=== PATIENT | male | born 1955 | race Caucasian/White ===

== ENCOUNTER 2021-07-10 08:46 | Emergency (ER) | payer MEDICARE, MEDICAID, OTHER, SELFPAY ==
[2021-07-10] VITALS (10 sets, daily range): BP systolic 130–162; BP diastolic 61–100; PULSE 69–97; RESP 16–18; TEMP 36.4–36.9; O2SAT 97–99; BMI 26.6
--- NOTE | 2021-07-10 08:49 | HMH.EDGENADL ---
ED Disposition Clinical Impression: Hematuria Qualifiers: Hematuria type: gross Qualified Code(s): R31.0 - Gross hematuria Urinary tract infection Qualifiers: Urinary tract infection type: acute cystitis Hematuria presence: with hematuria Qualified Code(s): N30.01 - Acute cystitis with hematuria Disposition: Home, Self-Care Condition on Discharge: Fair Instructions: Urinary Tract Infection Additional Instructions: Please schedule an appointment with a urologist (Dr. Diaz) for next week. You need a cystoscopy which is a scope into your bladder to make sure you do not have bladder cancer. Return to the emergency department if you worsen in any way. Prescriptions: Sulfamethoxazole/Trimethoprim [Bactrim DS tablet] 1 each PO BID #14 tab Transmission Status: Pending to [facility] [place] Referrals: Jak Parham MD [Primary Care Provider] - David Diaz MD [Staff Physician] - Time of Disposition: 11:55 - Critical Care Critical Care Time: No Attestation: On , the high probability of a clinically significant, sudden or life threatening deterioration of the following system(s) required my full and direct attention, intervention and personal management. The time I documented below is in addition to time spent performing reported procedures but includes the following listed in this critical care notation. Medical Decision Making - Medical Records Medical records reviewed: Yes: I reviewed the patient's medical records. - Sravan Inquiry Pt receiving controlled substance: No Vital Signs: 07/10/21 08:47 07/10/21 09:01 07/10/21 09:21 Temperature 97.5 F L Temperature Source Oral Pulse Rate 73 90 Pulse Rate [Left Radial] 97 H Respiratory Rate 18 18 18 Blood Pressure 158/85 H 146/82 H Blood Pressure [Right Arm] 162/100 H Blood Pressure Mean 110 100 Blood Pressure Mean [Right Arm] 120 Blood Pressure Source [Right Arm] Automatic Cuff Blood Pressure Position [Right Arm] Sitting 02 Sat by Pulse Oximetry 98 98 97 Oxygen Delivery Method Room Air 07/10/21 09:30 07/10/21 10:01 07/10/21 10:30 Temperature Temperature Source Pulse Rate 75 75 74 Pulse Rate [Left Radial] Respiratory Rate 18 17 16 Blood Pressure 134/73 155/89 H 158/82 H Blood Pressure [Right Arm] Blood Pressure Mean 94 111 107 Blood Pressure Mean [Right Arm] Blood Pressure Source [Right Arm] Blood Pressure Position [Right Arm] 02 Sat by Pulse Oximetry 98 98 98 Oxygen Delivery Method 07/10/21 11:00 07/10/21 11:30 Temperature Temperature Source Pulse Rate 75 69 Pulse Rate [Left Radial] Respiratory Rate 17 17 Blood Pressure 130/73 134/79 Blood Pressure [Right Arm] Blood Pressure Mean 92 97 Blood Pressure Mean [Right Arm] Blood Pressure Source [Right Arm] Blood Pressure Position [Right Arm] 02 Sat by Pulse Oximetry 99 98 Oxygen Delivery Method - Lab Data Lab results reviewed: Yes: I reviewed the patient's lab results. Lab Results 07/10/21 08:54: Stool Occult Blood Negative Orders (Tests/Meds): ORDERS Category Date Time Status Urinalysis-Acute [Urinalysis and Microscopic] Stat Lab 07/10/21 09:06 Ordered - Physician Consults Physician Consulted: Emily Time: 11:51 Reason -: Urology Eval/Care Comment/Response: Will see the patient next week to discuss cystoscopy. Medical Decision Narrative: The patient presents to the emergency department with gross hematuria. He was unable to void in the emergency department. He wears depends. He was observed for 3 hours in the emergency department and has not urinated. A CT of the abdomen and pelvis were performed and show some irregularity of the bladder wall and what could be a blood clot in the posterior bladder. The case was discussed with Dr. Diaz of the urologist on-call. Dr. Diaz has agreed to follow-up with the patient and his office next week. Patient will be discharged with a diagnosis of gross hematuria
[2021-07-10 09:11] LABS: Occult Blood,Stool Negative (Negative)
--- NOTE | 2021-07-10 09:13 | PC.NURSE ---
attempted to in/out cath, resistance noted, stopped, MD aware. Condom cath placed to collect urine
--- NOTE | 2021-07-10 09:35 | PC.NURSE ---
Condom catheter applied.
--- NOTE | 2021-07-10 10:30 | CT_ITS ---
PROCEDURE INFORMATION: Exam: CT Abdomen And Pelvis Without Contrast Exam date and time: 07/10/2021 10:34 AM Age: 66 years old Clinical indication: Other: Hematuria; Additional info: Painless hematuria TECHNIQUE: Imaging protocol: Computed tomography of the abdomen and pelvis without contrast. Radiation optimization: All CT scans at this facility use at least one of these dose optimization techniques: automated exposure control; mA and/or kV adjustment per patient size (includes targeted exams where dose is matched to clinical indication); or iterative reconstruction. COMPARISON: No relevant prior studies available. FINDINGS: Diaphragm: Small hiatal hernia. Liver: See Spleen finding. Gallbladder and bile ducts: Normal. No calcified stones. No ductal dilation. Pancreas: Normal. No ductal dilation. Spleen: Scattered granulomas are demonstrated in the spleen and liver. Adrenal glands: Normal. No mass. Kidneys and ureters: Bilateral perinephric stranding. Findings nonspecific and may reflect acute versus chronic inflammatory change. Stomach and bowel: Scattered colonic diverticula are demonstrated. Findings compatible with mild changes of diverticulosis. Appendix: No evidence of appendicitis. Intraperitoneal space: Unremarkable. No free air. No significant fluid collection. Arteries: Atherosclerotic calcification demonstrated in the abdominal aorta and common iliac arteries. Lymph nodes: Bilateral nonspecific inguinal lymph nodes. Urinary bladder: There is mild irregularity of the bladder wall. There is a ovoid slightly nodular region of mildly increased density within the base of the bladder. This measures approximately 14 mm in maximum dimensions. This may correspond to clot. A mass could not be excluded. Reproductive: There is mild prominence of the seminal vesicles and prostate. No distinct mass is demonstrated. Bones/joints: Unremarkable. No acute fracture. Soft tissues: Unremarkable. IMPRESSION: 1. Mild irregularity of the bladder wall. Findings may correspond to cystitis. Associated nodular region of increased density within the base of the bladder. Findings may reflect localized clot. A mass could not be excluded. 2. Mild prominence of the seminal vesicles and prostate gland. No distinct mass demonstrated. 3. Bilateral perinephric stranding. Findings nonspecific and may reflect acute versus chronic inflammatory change. 4. Diverticulosis. No evidence of diverticulitis.
--- NOTE | 2021-07-10 11:46 | PC.NURSE ---
has been paged
--- NOTE | 2021-07-10 13:11 | PC.NURSE ---
Coming out of another pt room I heard some noise coming from pt room. Once I entered the pt room, pt was sitting on the floor with his hand grabbing the side rail and urinal noted in other hand. Pt stating that he needed to use the urinal for urine. Side rails were up on pt bed during pt stay. Pt was able to stand and sit in chair. MD assessed pt, small abrasion noted to middle lumbar, pt denies hitting his head or any other injuries at this time.
== END 2021-07-10 12:49 | disposition home or self-care (01) ==
PROVIDERS: Emergency Provider Emergency Medicine; PCP Family Medicine
DX: N30.01 Acute cystitis with hematuria (principal); K21.9 Gastro-esophageal reflux disease without esophagitis; E78.5 Hyperlipidemia, unspecified; F17.210 Nicotine dependence, cigarettes, uncomplicated; Z79.82 Long term (current) use of aspirin; Z79.899 Other long term (current) drug therapy; Z82.49 Family history of ischemic heart disease and other diseases of the circulatory system; Z82.5 Family history of asthma and other chronic lower respiratory diseases; Z83.3 Family history of diabetes mellitus; Z80.9 Family history of malignant neoplasm, unspecified
CPT/HCPCS: 74176; 82272; 99284; G0328

== ENCOUNTER 2021-07-28 19:38 | Observation (INO) | payer MEDICARE, MEDICAID, OTHER, SELFPAY ==
[2021-07-28 19:33] VITALS: BP 168/98; PULSE 108; RESP 16; TEMP 36.8; O2SAT 94; BMI 31.1
--- NOTE | 2021-07-28 20:13 | CT_ITS ---
PROCEDURE INFORMATION: Exam: CT Abdomen And Pelvis With Contrast Exam date and time: 07/28/2021 8:50 PM Age: 66 years old Clinical indication: Vomiting; Additional info: Vomitting TECHNIQUE: Imaging protocol: Computed tomography of the abdomen and pelvis with contrast. Radiation optimization: All CT scans at this facility use at least one of these dose optimization techniques: automated exposure control; mA and/or kV adjustment per patient size (includes targeted exams where dose is matched to clinical indication); or iterative reconstruction. Contrast material: ISOVUE; Contrast volume: 329 ml; Contrast route: IV; COMPARISON: CT ABDOMEN PELVIS WO CON 07/10/2021 10:34 AM FINDINGS: Lungs: Patchy opacities at the lung bases. Diaphragm: Moderate hiatal hernia with fluid and debris within the lower esophagus. Liver: Normal. No mass. Gallbladder and bile ducts: No calcified stones. No ductal dilation. Pancreas: Normal enhancement. No ductal dilation. Spleen: There are multiple splenic calcifications likely on the basis of prior granulomatous exposure. Adrenal glands: No mass. Kidneys and ureters: No hydronephrosis. Stomach and bowel: No obstruction. No mucosal thickening. Appendix: No evidence of appendicitis. Intraperitoneal space: No free air. No significant fluid collection. Arteries: Unremarkable. No abdominal aortic aneurysm. Lymph nodes: No enlarged lymph nodes. Urinary bladder: Mild asymmetric wall thickening of posterior left urinary bladder measuring approximately 5 mm. Reproductive: No acute abnormality. Bones/joints: No acute fracture. Soft tissues: No soft tissue swelling. IMPRESSION: 1. Moderate hiatal hernia with fluid and debris within the lower esophagus compatible with gastroesophageal reflux and vomiting. 2. Patchy opacities at the lung bases which may be hypoventilatory however pneumonitis should be clinically excluded. 3. Mild asymmetric wall thickening of posterior left urinary bladder measuring approximately 5 mm. Correlation with UA recommended. Mucosal mass cannot be radiographically excluded.
[2021-07-28 20:30] LABS: Chloride 106 mmol/L (98-107); Potassium 3.6 mmoL/L (3.5-5.1); Sodium 143 mmol/L (136-145)
[2021-07-28 20:32] LABS: Alanine Aminotransferase 25 U/L (12-78); Aspartate Amino Transferase 33 U/L (17-59); Blood Urea Nitrogen 22 mg/dl (9-20); Creatinine Clearance Estimated 87 mL/min (50-200); Estimated Glomerular Filt Rate 67 ml/min (>60); GFR (African American) 81 ML/MIN (>60)
[2021-07-28 20:33] LABS: Albumin Level 4.6 g/dl (3.5-5.0); Albumin/Globulin Ratio 1.4 (1.1-1.8); Alkaline Phosphatase 96 U/L (38-126); Anion Gap 12.6 mEq/L (5-15); Bilirubin,Total 0.6 mg/dl (0.2-1.3); Calcium 10.1 mg/dl (8.4-10.2); Carbon Dioxide 28 mmol/L (22.0-30.0); Globulin 3.2 g/dL (1.3-3.2); Glucose 126 mg/dl (74-100); Total Protein,Serum 7.8 g/dl (6.3-8.2)
--- NOTE | 2021-07-28 20:48 | HMH.EDNVD ---
ED Disposition Clinical Impression: UGIB (upper gastrointestinal bleed), Obesity (BMI 30-39.9), Hiatal hernia with GERD and esophagitis Hematuria Qualifiers: Hematuria type: unspecified type Qualified Code(s): R31.9 - Hematuria, unspecified Disposition: Admitted As Inpatient Condition on Discharge: Fair - Critical Care Critical Care Time: No Attestation: On 07/28/21, the high probability of a clinically significant, sudden or life threatening deterioration of the following system(s) required my full and direct attention, intervention and personal management. The time I documented below is in addition to time spent performing reported procedures but includes the following listed in this critical care notation. Medical Decision Making - Medical Records Medical records reviewed: Yes: I reviewed the patient's medical records. - Sravan Inquiry Pt receiving controlled substance: No Vital Signs: 07/28/21 19:33 Temperature 98.3 F Temperature Source Oral Pulse Rate [Left] 108 H Respiratory Rate 16 Blood Pressure [Right Arm] 168/98 H Blood Pressure Mean [Right Arm] 121 02 Sat by Pulse Oximetry 94 L Oxygen Delivery Method Room Air - Lab Data Lab results reviewed: Yes: I reviewed the patient's lab results. Lab Results 07/28/21 20:00: Sodium 143, Potassium 3.6, Chloride 106, Carbon Dioxide 28, Anion Gap 12.6, BUN 22 H, Creatinine 1.10, Estimated Creat Clear 87, Estimated GFR 67, Est GFR ( Amer) 81, Glucose 126 H, Calcium 10.1, Total Bilirubin 0.6, AST 33, ALT 25, Alkaline Phosphatase 96, Total Protein 7.8, Albumin 4.6, Globulin 3.2, Albumin/Globulin Ratio 1.4 07/28/21 20:00: Amylase 83, Lipase 58 Result diagrams: 07/28/21 20:00 Orders (Tests/Meds): ED MEDICATIONS Generic Name Dose Route Start Last Admin Trade Name Freq PRN Reason Stop Dose Admin Lactated Ringer's 1,000 mls @ 999 mls/hr 07/28/21 20:15 07/28/21 20:14 Lactated Ringer's 1000 Ml Bag IV 07/28/21 21:15 999 mls/hr .Q1H1M WAYLON Administration Metoclopramide HCl 10 mg 07/28/21 22:00 07/28/21 22:15 Metoclopramide Hcl 10mg/2ml Vial IVP 08/27/21 21:59 10 mg Q6H WAYLON Administration Pantoprazole Sodium 40 mg 07/29/21 09:00 Pantoprazole 40mg Vial IV 08/28/21 08:59 BID WAYLON Discontinued Medications Generic Name Dose Route Start Last Admin Trade Name Amy PRN Reason Stop Dose Admin Iopamidol 75 ml 07/28/21 20:53 07/28/21 20:54 Iopamidol-370 (76%);100ml Bottle IV 07/28/21 20:54 75 ml ONCE ONE Administration Ondansetron HCl 4 mg 07/28/21 20:13 07/28/21 20:14 Ondansetron 4mg/2ml Vial IV 07/28/21 20:14 4 mg ONCE ONE Administration Sodium Chloride 10 ml 07/28/21 20:53 07/28/21 20:54 Sodium Chloride 0.9% 10ml Syr (Rad Only) IV 07/28/21 20:54 10 ml ONCE ONE Administration ORDERS Category Date Time Status Complete Blood Count Auto Diff Stat Lab 07/28/21 20:00 Received Rapid PCR Covid and Flu A/B Stat Lab 07/28/21 21:50 Received - Radiology Data #1 Image(s): Chest Image Reviewed: Yes I reviewed the patient's radiology image Preliminary Findings: Abnormal (nonspecific) - CT Data CT Scan: Abdomen, Pelvis Time Received: 22:[address] Reviewed: Yes: I have viewed the radiologist's interpretation Preliminary Findings: Abnormal (see report ) - ECG Data Tracing #1 Arrhythmias present: sinus tach Ischemic changes: non-specific ST-T wave changes Medical Decision Narrative: will admit at this time for eval for possible ugi bleed - Nausea/Vomiting/Diarrhea HPI - General Chief complaint: Nausea/Vomiting/Diarrhea Stated complaint: increased oral secretions Time Seen by Provider: 07/28/21 20:00 Mode of Arrival: EMS Source of Information: Patient, EMS, Medical Record Limitations: Altered Mental Status Description of Symptoms (Recalled from ER Triage Doc. by RN): pt is alert to person and time when I asked what brought him today he said he guesses that its be
--- NOTE | 2021-07-28 21:35 | XR_ITS ---
PROCEDURE INFORMATION: Exam: XR Chest Exam date and time: 07/28/2021 9:41 PM Age: 66 years old Clinical indication: Other: Vomiting; Additional info: Vomitting TECHNIQUE: Imaging protocol: XR of the chest. Views: 1 view. COMPARISON: CT ABDOMEN PELVIS W CON 07/28/2021 8:50 PM FINDINGS: Lungs: Examination is somewhat limited by patient positioning. Subtle hazy opacity at the lung bases. Thickening of the right paratracheal soft tissues with opacity at the right lung apex. Pleural spaces: No pneumothorax. Heart/Mediastinum: Trachea is deviated to the right. No cardiomegaly. Bones/joints: No acute abnormality. IMPRESSION: Subtle hazy opacity at the lung bases which may be hypoventilatory however pneumonitis should be clinically excluded. Thickening of the right paratracheal soft tissues with opacity at the right lung apex which may in part be positional however mass cannot be excluded. Consider chest CT for further evaluation.
[2021-07-28 21:44] LABS: Amylase 83 U/L (30-110); Lipase 58 U/L (23-300)
[2021-07-28 22:03] LABS: Coronavirus 19, PCR Not Detected (NotDetected); Influenza A, PCR Not Detected (NotDetected)
[2021-07-28 22:04] LABS: Influenza B, PCR Not Detected (NotDetected)
--- NOTE | 2021-07-28 22:17 | ECG_ITS ---
APPROVED REPORT Exam: Resting ECG HR:110 bpm ECG Measurements Heart Rate 110 AXES NE 179 P 20 QRSd 89 QRS 121 QT 331 T -2 QTc 396 Conclusion SINUS TACHYCARDIA PATTERN CONSISTENT WITH PULMONARY DISEASE POSSIBLE RIGHT VENTRICULAR HYPERTROPHY [SOME/ALL OF: PROMINENT R IN V1, LATE TRANSITION, RAD, CONSUELO, SSS] ABNORMAL QRS-T ANGLE [QRS-T AXIS DIFFERENCE > 60] ABNORMAL ECG UNCONFIRMED REPORT Electronically signed by : Ismael Caraballo MD 07/29/2021 07:58:52
[2021-07-28 22:36] LABS: Occult Blood,Stool Negative (Negative)
[2021-07-28 23:52] VITALS: BP 137/88; PULSE 90; RESP 16; TEMP 36.8; O2SAT 94
[2021-07-28 23:55] VITALS: BP 117/81; PULSE 112; RESP 18; TEMP 38; O2SAT 90; BMI 31.0
--- NOTE | 2021-07-28 23:55 | PC.NURSE ---
PT ARRIVED TO FLOOR VIA STRETCHER FROM ED W/STAFF @ [id number]
[2021-07-29 00:30] VITALS: O2SAT 90
[2021-07-29 03:39] LABS: Basophils % 0.6 % (0.1-2.0); Eosinophils % 1.3 % (0.1-12.0); Hematocrit 45.5 % (42.0-52.0); Hemoglobin 15.1 g/dL (14.1-18.0); Lymphocytes % 11.7 % (10-50); Mean Corpuscular HGB Conc 33.2 g/dL (31.8-35.4); Mean Corpuscular Hemoglobin 30.8 pg (27.0-31.2); Mean Corpuscular Volume 92.7 fl (80-94); Mean Platelet Volume 9.4 fl (7.4-10.4); Monocytes % 10.8 % (1.7-9.3); Neutrophils # 9.6 K/mm3 (1.8-7.8); Neutrophils % 75.3 % (37.0-80.0); Platelet Count 325 K/mm3 (142-424); Red Blood Count 4.91 M/mm3 (4.60-6.20)
[2021-07-29 03:40] LABS: Basophils # 0.1 K/mm3 (0-0.2); Eosinophils # 0.2 K/mm3 (0.0-0.4); Lymphocytes # 1.5 K/mm3 (0.7-4.5); Monocytes # 1.4 K/mm3 (0.1-1.0); White Blood Count 12.7 K/mm3 (4.8-10.8)
[2021-07-29 04:00] VITALS: BP 116/80; PULSE 68; RESP 16; TEMP 36.9; O2SAT 96
--- NOTE | 2021-07-29 04:00 | PC.NURSE ---
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 lungs noted with expiratory wheezes, o2 sats 90% on r/a, attempted to place o2 at 1L pnc, but pt will not keep on. no swelling or edema noted.
[2021-07-29 07:01] LABS: Chloride 110 mmol/L (98-107); Sodium 145 mmol/L (136-145)
[2021-07-29 07:02] LABS: Potassium 3.9 mmoL/L (3.5-5.1)
[2021-07-29 07:04] LABS: Blood Urea Nitrogen 22 mg/dl (9-20); Creatinine Clearance Estimated 87 mL/min (50-200); Estimated Glomerular Filt Rate 67 ml/min (>60); GFR (African American) 81 ML/MIN (>60)
[2021-07-29 07:05] LABS: Anion Gap 10.9 mEq/L (5-15); Calcium 10.1 mg/dl (8.4-10.2); Carbon Dioxide 28 mmol/L (22.0-30.0); Glucose 154 mg/dl (74-100)
--- NOTE | 2021-07-29 07:13 | P.CONPHA_ITS ---
[facility] Pharm[facility] VTE Monitoring - Patient Demographics Admission date: 07/29/21 Report Date: 07/29/21 Time: 07:13 Allergies/Adverse Reactions: Patient Allergies No Known Allergies Allergy (Verified 07/23/21 13:31) Height: 1.73 m Weight: 92.986 kg Patient Problems: Current Active Problems Hematuria (Acute) UGIB (upper gastrointestinal bleed) (Acute) Obesity (BMI 30-39.9) (Acute) Hiatal hernia with GERD and esophagitis (Acute) - VTE Risk Labs: VTE Related Lab Results Hgb 15.1 g/dL (14.1-18.0) 07/28/21 20:00 Hct 45.5 % (42.0-52.0) 07/28/21 20:00 Plt Count 325 K/mm3 (142-424) 07/28/21 20:00 BUN 22 mg/dl (9-20) H 07/29/21 06:31 Creatinine 1.10 mg/dl (0.66-1.25) 07/29/21 06:31 Estimated Creat Clear 87 mL/min (50-200) 07/29/21 06:31 Was VTE Risk Assessment Performed: Yes VTE Score: 4 VTE Risk Level: Low Risk Clinical Trial Participant: No - Prophylaxis VTE Prophylaxis Ordered?: Yes Types of VTE Prophylaxis: TEDS Knee High Location of Applied Device: Bilateral Lower Extremeties
--- NOTE | 2021-07-29 07:18 | HMH.GSCON ---
*Admission Date: 07/29/21 *Reason for consult:: Upper GI Bleed *History of present illness: Patient is a 66-year-old male with a history of previous stroke and dementia who is a [facility] patient. He was brought to the emergency department overnight with concerns about vomiting of blood by the staff. He denies any pain or other symptoms. He apparently has recently been started on aspirin. Denies any history consistent with melena or hematochezia. Blood work in the emergency department reveals a hemoglobin of 15. BUN/Cr 22/1.1. CT scan reveals findings of moderate hiatal hernia with fluid and debris in the lower esophagus compatible with gastroesophageal reflux and vomiting. He was admitted for inpatient management and surgical consultation. Review of Systems - Review of Systems Review of systems:: unable to obtain - *Neurologic Denies seizure-like activity [facility] History I have reviewed the patient's past medical history: Yes Medical History: Reports:: Carotid Stenosis, Depression, Gastroesophageal Reflux Disease(GERD), Hyperlipidemia, Renal Disease *Have you ever received a pneumonia vaccine?: Yes *Have you received a flu vaccine this season?: Yes Other Surgeries: Yes: No Previous Surgery, Colonoscopy, Colon Resection Amputation: No Fractures: No - *Social History Smoking Status: Current every day smoker Tobacco Type: cigarettes # Packs/Day (cigarettes): 2 #Yrs smoked (if former smoker): 46 Alcohol Intake: current Alcohol Intake Frequency:: 0-2 drinks per day Substance Use Type: denies use *Occupational Status:: retired Housing: assisted living facility Household Members: caregiver *Travel in the last 8 weeks: None - Psychiatric History Pschychiatric History:: Reports:: Depression Family Hx:: Asthma, Cancer, Coronary Artery Disease, Diabetes, Heart Attack Meds Home Medications Medication Instructions Recorded Confirmed Type aspirin 81 mg tablet,delayed 81 mg PO DAILY 09/03/18 07/28/21 History release simvastatin 20 mg tablet 20 mg PO HS 09/03/18 07/29/21 History bisacodyl 5 mg tablet,delayed 10 mg PO HSP PRN 07/23/21 07/29/21 History release bupropion HCl 75 mg tablet 75 mg PO BID 07/23/21 07/29/21 History guaifenesin 400 mg tablet 400 mg PO BID tab 07/23/21 07/28/21 History sennosides 8.6 mg capsule 8.6 mg PO DAILY 07/23/21 07/28/21 History zinc oxide 20 % topical ointment 1 applic TOPICAL BID g 07/23/21 07/28/21 History Omeprazole [Omeprazole 20mg Tab] 20 mg PO DAILY 07/28/21 07/28/21 History Allergies Allergy/AdvReac Type Severity Reaction Status Date / Time No Known Allergies Allergy Verified 07/23/21 13:31 Exam Vital signs and Labs for Last 24 Hours: Temp Pulse Resp BP Pulse Ox 98.5 F 68 16 116/80 96 07/29/21 04:00 07/29/21 04:00 07/29/21 04:00 07/29/21 04:00 07/29/21 04:00 Laboratory Results - last 24 hr 07/28/21 20:00: WBC 12.7 H, RBC 4.91, Hgb 15.1, Hct 45.5, MCV 92.7, MCH 30.8, MCHC 33.2, RDW 13.0, Plt Count 325, MPV 9.4, Neut % (Auto) 75.3, Lymph % (Auto) 11.7, Gray % (Auto) 10.8 H, Eos % (Auto) 1.3, Baso % (Auto) 0.6, Neut # (Auto) 9.6 H, Lymph # (Auto) 1.5, Gray # (Auto) 1.4 H, Eos # (Auto) 0.2, Baso # (Auto) 0.1 07/28/21 20:00: Sodium 143, Potassium 3.6, Chloride 106, Carbon Dioxide 28, Anion Gap 12.6, BUN 22 H, Creatinine 1.10, Estimated Creat Clear 87, Estimated GFR 67, Est GFR ( Amer) 81, Glucose 126 H, Calcium 10.1, Total Bilirubin 0.6, AST 33, ALT 25, Alkaline Phosphatase 96, Total Protein 7.8, Albumin 4.6, Globulin 3.2, Albumin/Globulin Ratio 1.4 07/28/21 20:00: Amylase 83, Lipase 58 07/28/21 21:50: SARS-CoV-2 (PCR) Not detected, Influenza A Untype (PCR) Not detected, Influenza Type B (PCR) Not detected 07/28/21 22:10: Stool Occult Blood Negative 07/29/21 06:31: Sodium 145, Potassium 3.9, Chloride 110 H, Carbon Dioxide 28, Anion Gap 10.9, BUN 22 H, Creatinine 1.10, Estimated Creat Clear 87, Estimated GFR 67, Est GFR ( Amer) 81, Glucose 154 H D, Henry
--- NOTE | 2021-07-29 07:19 | HMH.PHAINT ---
verified home medication list using MAR from detention
[2021-07-29 08:00] VITALS: BP 116/48; PULSE 86; RESP 16; TEMP 37.2; O2SAT 89
[2021-07-29 08:16] LABS: INR 1.02 (0.9-1.1); Prothrombin Time 11.5 seconds (10.1-12.5)
--- NOTE | 2021-07-29 08:20 | SW/DCPLANNER ---
Addendum entered by Damari Corrales 07/30/21 09:44: Updated patient information has been faxed to Debra eldridge/ Jacob Palumbo. Discharge date is unknown at this time. Original Note: This patient currently resides at [facility]. Per Debra eldridge/ Jacob Palumbo patient is [facility] level of care. I will continue to follow up chente/ Debra until patient is medically stable for discharge.
[2021-07-29 09:32] LABS: Hematocrit 41.1 % (42.0-52.0); Mean Corpuscular HGB Conc 32.8 g/dL (31.8-35.4); Mean Corpuscular Hemoglobin 30.1 pg (27.0-31.2); Mean Corpuscular Volume 91.5 fl (80-94); Red Blood Count 4.49 M/mm3 (4.60-6.20)
[2021-07-29 09:33] LABS: Basophils % 0.1 % (0.1-2.0); Lymphocytes # 0.8 K/mm3 (0.7-4.5); Lymphocytes % 4.7 % (10-50); Mean Platelet Volume 9.3 fl (7.4-10.4); Monocytes # 0.8 K/mm3 (0.1-1.0); Monocytes % 4.7 % (1.7-9.3); Neutrophils # 16.1 K/mm3 (1.8-7.8); Neutrophils % 90.2 % (37.0-80.0); Platelet Count 286 K/mm3 (142-424)
[2021-07-29 09:34] LABS: Hemoglobin 13.5 g/dL (14.1-18.0); White Blood Count 17.8 K/mm3 (4.8-10.8)
[2021-07-29 09:36] LABS: MANUAL DIFFERENTIAL MANUAL DIFFERENTIAL (MANUAL DIFF)
--- NOTE | 2021-07-29 10:01 | HMH.CONS ---
*Admission Date: 07/29/21 *Reason for consult:: Hematuria *History of present illness: Patient is a 66-year-old white female who is [facility]. He has a history of hematuria that was admitted last evening for vomiting blood. Dr. Bourne has seen the patient CT with contrast was performed showing possible bladder mass which was already suspected. I saw the patient last week in the office for history of blood in his pull-up. He is incontinent. CT scan without contrast showed signs of possible bladder mass at that time. He is set up in the near future for cystoscopy and possible tumor resection. Examination of his pull-ups this morning showed no evidence of blood in his urine. [facility] History Medical History: Reports:: Carotid Stenosis, Depression, Gastroesophageal Reflux Disease(GERD), Hyperlipidemia, Renal Disease *Have you ever received a pneumonia vaccine?: Yes *Have you received a flu vaccine this season?: Yes Other Surgeries: Yes: No Previous Surgery, Colonoscopy, Colon Resection Amputation: No Fractures: No - *Social History Smoking Status: Current every day smoker Tobacco Type: cigarettes # Packs/Day (cigarettes): 2 #Yrs smoked (if former smoker): 46 Alcohol Intake: current Alcohol Intake Frequency:: 0-2 drinks per day Substance Use Type: denies use *Occupational Status:: retired Housing: assisted living facility Household Members: caregiver *Travel in the last 8 weeks: None - Psychiatric History Pschychiatric History:: Reports:: Depression Family Hx:: Asthma, Cancer, Coronary Artery Disease, Diabetes, Heart Attack Review of Systems - Review of Systems Review of systems:: unable to obtain - *Neurologic Denies seizure-like activity Meds Home Medications Medication Instructions Recorded Confirmed Type aspirin 81 mg tablet,delayed 81 mg PO DAILY 09/03/18 07/28/21 History release simvastatin 20 mg tablet 20 mg PO HS 09/03/18 07/29/21 History bisacodyl 5 mg tablet,delayed 10 mg PO HSP PRN 07/23/21 07/29/21 History release bupropion HCl 75 mg tablet 75 mg PO BID 07/23/21 07/29/21 History guaifenesin 400 mg tablet 400 mg PO BID tab 07/23/21 07/28/21 History sennosides 8.6 mg capsule 8.6 mg PO DAILY 07/23/21 07/28/21 History zinc oxide 20 % topical ointment 1 applic TOPICAL BID g 07/23/21 07/28/21 History Omeprazole [Omeprazole 20mg Tab] 20 mg PO DAILY 07/28/21 07/28/21 History Allergies Allergy/AdvReac Type Severity Reaction Status Date / Time No Known Allergies Allergy Verified 07/23/21 13:31 Exam Vital signs and Labs for Last 24 Hours: Temp Pulse Resp BP Pulse Ox 98.9 F 86 16 116/48 L 89 L 07/29/21 08:00 07/29/21 08:00 07/29/21 08:00 07/29/21 08:00 07/29/21 08:00 Laboratory Results - last 24 hr 07/28/21 20:00: WBC 12.7 H, RBC 4.91, Hgb 15.1, Hct 45.5, MCV 92.7, MCH 30.8, MCHC 33.2, RDW 13.0, Plt Count 325, MPV 9.4, Neut % (Auto) 75.3, Lymph % (Auto) 11.7, [place] % (Auto) 10.8 H, Eos % (Auto) 1.3, Baso % (Auto) 0.6, Neut # (Auto) 9.6 H, Lymph # (Auto) 1.5, [place] # (Auto) 1.4 H, Eos # (Auto) 0.2, Baso # (Auto) 0.1 07/28/21 20:00: Sodium 143, Potassium 3.6, Chloride 106, Carbon Dioxide 28, Anion Gap 12.6, BUN 22 H, Creatinine 1.10, Estimated Creat Clear 87, Estimated GFR 67, Est GFR ( Amer) 81, Glucose 126 H, Calcium 10.1, Total Bilirubin 0.6, AST 33, ALT 25, Alkaline Phosphatase 96, Total Protein 7.8, Albumin 4.6, Globulin 3.2, Albumin/Globulin Ratio 1.4 07/28/21 20:00: Amylase 83, Lipase 58 07/28/21 21:50: SARS-CoV-2 (PCR) Not detected, Influenza A Untype (PCR) Not detected, Influenza Type B (PCR) Not detected 07/28/21 22:10: Stool Occult Blood Negative 07/29/21 06:31: WBC 17.8 H D, RBC 4.49 L, Hgb 13.5 L D, Hct 41.1 L, MCV 91.5, MCH 30.1, MCHC 32.8, RDW 13.0, Plt Count 286, MPV 9.3, Neut % (Auto) 90.2 H, Lymph % (Auto) 4.7 L, [place] % (Auto) 4.7, Eos % (Auto) 0.0 L, Baso % (Auto) 0.1, Neut # (Auto) 16.1 H, Lymph # (Auto) 0.8, [place] # (Auto) 0.8, Eos # (Auto) 0.0, Baso #
--- NOTE | 2021-07-29 10:06 | HMH.HP ---
*Admission Date: 07/29/21 *Chief complaint: gi bleed *History of present illness: Patient is a 66-year-old male with a history of previous stroke and dementia who is a [facility] patient. He was brought to the emergency department overnight with concerns about vomiting of blood by the staff. He denies any pain or other symptoms. He apparently has recently been started on aspirin. Denies any history consistent with melena or hematochezia. Blood work in the emergency department reveals a hemoglobin of 15. BUN/Cr 22/1.1. CT scan reveals findings of moderate hiatal hernia with fluid and debris in the lower esophagus compatible with gastroesophageal reflux and vomiting. above per Dr Bourne Omeprazole is on board chronically. [facility] History Medical History: Reports:: Carotid Stenosis, Depression, Gastroesophageal Reflux Disease(GERD), Hyperlipidemia, Renal Disease *Have you ever received a pneumonia vaccine?: Yes *Have you received a flu vaccine this season?: Yes Other Surgeries: Yes: No Previous Surgery, Colonoscopy, Colon Resection Amputation: No Fractures: No - *Social History Smoking Status: Current every day smoker Tobacco Type: cigarettes # Packs/Day (cigarettes): 2 #Yrs smoked (if former smoker): 46 Alcohol Intake: current Alcohol Intake Frequency:: 0-2 drinks per day Substance Use Type: denies use *Occupational Status:: retired Housing: assisted living facility Household Members: caregiver *Travel in the last 8 weeks: None - Psychiatric History Pschychiatric History:: Reports:: Depression Family Hx:: Asthma, Cancer, Coronary Artery Disease, Diabetes, Heart Attack Review of Systems - Review of Systems Review of systems:: unable to obtain - *Neurologic Denies seizure-like activity Meds Home Medications Medication Instructions Recorded Confirmed Type aspirin 81 mg tablet,delayed 81 mg PO DAILY 09/03/18 07/28/21 History release simvastatin 20 mg tablet 20 mg PO HS 09/03/18 07/29/21 History bisacodyl 5 mg tablet,delayed 10 mg PO HSP PRN 07/23/21 07/29/21 History release bupropion HCl 75 mg tablet 75 mg PO BID 07/23/21 07/29/21 History guaifenesin 400 mg tablet 400 mg PO BID tab 07/23/21 07/28/21 History sennosides 8.6 mg capsule 8.6 mg PO DAILY 07/23/21 07/28/21 History zinc oxide 20 % topical ointment 1 applic TOPICAL BID g 07/23/21 07/28/21 History Omeprazole [Omeprazole 20mg Tab] 20 mg PO DAILY 07/28/21 07/28/21 History Allergies Allergy/AdvReac Type Severity Reaction Status Date / Time No Known Allergies Allergy Verified 07/23/21 13:31 Exam Vital signs and Labs for Last 24 Hours: Temp Pulse Resp BP Pulse Ox 98.9 F 86 16 116/48 L 89 L 07/29/21 08:00 07/29/21 08:00 07/29/21 08:00 07/29/21 08:00 07/29/21 08:00 Laboratory Results - last 24 hr 07/28/21 20:00: WBC 12.7 H, RBC 4.91, Hgb 15.1, Hct 45.5, MCV 92.7, MCH 30.8, MCHC 33.2, RDW 13.0, Plt Count 325, MPV 9.4, Neut % (Auto) 75.3, Lymph % (Auto) 11.7, [place] % (Auto) 10.8 H, Eos % (Auto) 1.3, Baso % (Auto) 0.6, Neut # (Auto) 9.6 H, Lymph # (Auto) 1.5, [place] # (Auto) 1.4 H, Eos # (Auto) 0.2, Baso # (Auto) 0.1 07/28/21 20:00: Sodium 143, Potassium 3.6, Chloride 106, Carbon Dioxide 28, Anion Gap 12.6, BUN 22 H, Creatinine 1.10, Estimated Creat Clear 87, Estimated GFR 67, Est GFR ( Amer) 81, Glucose 126 H, Calcium 10.1, Total Bilirubin 0.6, AST 33, ALT 25, Alkaline Phosphatase 96, Total Protein 7.8, Albumin 4.6, Globulin 3.2, Albumin/Globulin Ratio 1.4 07/28/21 20:00: Amylase 83, Lipase 58 07/28/21 21:50: SARS-CoV-2 (PCR) Not detected, Influenza A Untype (PCR) Not detected, Influenza Type B (PCR) Not detected 07/28/21 22:10: Stool Occult Blood Negative 07/29/21 06:31: WBC 17.8 H D, RBC 4.49 L, Hgb 13.5 L D, Hct 41.1 L, MCV 91.5, MCH 30.1, MCHC 32.8, RDW 13.0, Plt Count 286, MPV 9.3, Neut % (Auto) 90.2 H, Lymph % (Auto) 4.7 L, [place] % (Auto) 4.7, Eos % (Auto) 0.0 L, Baso % (Auto) 0.1, Neut # (Auto) 16.1 H, Lymph # (Auto) 0.8,
[2021-07-29 16:00] VITALS: BP 113/70; PULSE 105; RESP 15; TEMP 37.1; O2SAT 89
--- NOTE | 2021-07-29 19:12 | PC.NURSE ---
Report given to [facility]
[2021-07-29 19:56] VITALS: BP 125/53; PULSE 106; RESP 22; TEMP 37.1; O2SAT 92
[2021-07-30] VITALS (16 sets, daily range): BP systolic 85–178; BP diastolic 51–96; PULSE 70–115; RESP 15–20; TEMP 36.3–37.4; O2SAT 90–95
--- NOTE | 2021-07-30 04:54 | PC.NURSE ---
Patient resting well throughout shift. No nausea or vomiting noted. No hematuria noted in briefs. Patient is scheduled for an EGD this morning. Patient has been NPO throughout shift.
--- NOTE | 2021-07-30 07:06 | HMH.GSPN ---
Subjective Narrative: Patient resting. No additional vomiting since yesterday afternoon. Progress Note: A&P (1) UGIB (upper gastrointestinal bleed) Status: Acute (2) Stroke Status: Acute Assessment and Plan for All Diagnoses:: EGD later today Exam Vital signs and Labs for Last 24 Hours: Temp Pulse Resp BP Pulse Ox 99.3 F 88 16 131/72 92 L 07/30/21 04:41 07/30/21 04:41 07/30/21 04:41 07/30/21 04:41 07/30/21 04:41 Laboratory Results - last 24 hr 07/29/21 06:31: WBC 17.8 H D, RBC 4.49 L, Hgb 13.5 L D, Hct 41.1 L, MCV 91.5, MCH 30.1, MCHC 32.8, RDW 13.0, Plt Count 286, MPV 9.3, Neut % (Auto) 90.2 H, Lymph % (Auto) 4.7 L, [place] % (Auto) 4.7, Eos % (Auto) 0.0 L, Baso % (Auto) 0.1, Neut # (Auto) 16.1 H, Lymph # (Auto) 0.8, [place] # (Auto) 0.8, Eos # (Auto) 0.0, Baso # (Auto) 0.0, Total Counted TNP, Platelet Estimate TNP, RBC Morphology TNP 07/29/21 06:31: Sodium 145, Potassium 3.9, Chloride 110 H, Carbon Dioxide 28, Anion Gap 10.9, BUN 22 H, Creatinine 1.10, Estimated Creat Clear 87, Estimated GFR 67, Est GFR ( Amer) 81, Glucose 154 H D, Calcium 10.1 07/29/21 07:55: PT 11.5, INR 1.02 I & O for Last 24 hours: Intake & Output 07/27/21 07/28/21 07/29/21 07/30/21 11:59 11:59 11:59 11:59 Intake Total 251 / 251 Balance 251 / 251 Weight 204 lb 15.984 oz - Constitutional no acute distress
--- NOTE | 2021-07-30 08:09 | PC.NURSE ---
Called Ceci Crowder and obtained verbal consent as patient is chow of state and baseline confusion. Verbal consent verified with Nabila Garcia. Ceci Crodwer requested [facility] to be contacted with results of procedure.
--- NOTE | 2021-07-30 09:09 | P.PN_ITS ---
Internal Medicine - PN: Subj *Date: 07/30/21 *Time: 18:32 Interval history: uneventful night pt confused this morning, known to have underlying dementia no abdominal pain no suggestion of further bleeding Exam Vital signs and Labs for Last 24 Hours: Temp Pulse Resp BP Pulse Ox 98.3 F 93 H 20 136/74 94 L 07/30/21 07:52 07/30/21 07:52 07/30/21 07:52 07/30/21 07:52 07/30/21 07:52 Laboratory Results - last 24 hr 07/29/21 06:31: WBC 17.8 H D, RBC 4.49 L, Hgb 13.5 L D, Hct 41.1 L, MCV 91.5, MCH 30.1, MCHC 32.8, RDW 13.0, Plt Count 286, MPV 9.3, Neut % (Auto) 90.2 H, Lymph % (Auto) 4.7 L, [place] % (Auto) 4.7, Eos % (Auto) 0.0 L, Baso % (Auto) 0.1, Neut # (Auto) 16.1 H, Lymph # (Auto) 0.8, [place] # (Auto) 0.8, Eos # (Auto) 0.0, Baso # (Auto) 0.0, Total Counted TNP, Platelet Estimate TNP, RBC Morphology TNP I & O for Last 24 hours: Intake & Output 07/27/21 07/28/21 07/29/21 07/30/21 23:59 23:59 23:59 23:59 Intake Total 251 / 251 Balance 251 / 251 Weight 204 lb 15.984 oz - Constitutional chronically ill appearing - *Routine HEENT Exam Head: Present: normocephalic Eye: Present: EOMI, PERRL ENT: Present: mucous membranes moist - *Routine Neck Exam Present: supple. Absent: lymphadenopathy - *Routine Respiratory Exam Present: CTA bilaterally - *Routine Cardiovascular Exam Present: RRR - *Routine Abdominal Exam Present: soft, normoactive bowel sounds. Absent: tenderness - *Routine Extremities Exam Absent: cyanosis, clubbing, edema - *Routine Skin Exam Absent: jaundice - *Routine Neurological Exam Present: vision grossly intact, hearing grossly intact. Absent: tremors Assessment and Plan (1) UGIB (upper gastrointestinal bleed) Status: Acute Category: Medical Code(s): K92.2 - Gastrointestinal hemorrhage, unspecified (2) Stroke Status: Acute Qualifiers: CVA mechanism: unspecified Qualified Code(s): I63.9 - Cerebral infarction, unspecified Category: Medical Code(s): I63.9 - Cerebral infarction, unspecified - Assessment and plan all Dx Assessment and Plan for all problems:: egd per Dr Bourne
--- NOTE | 2021-07-30 12:07 | HMH.SCOPE ---
- Procedure: Date: 07/30/21 Patient Date of :: 1955 Procedure Performed:: Esophagogastroduodenoscopy with biopsy Indications:: Patient is a 66-year-old male with a history of previous stroke and dementia who is a [facility] patient. He was brought to the emergency department overnight with concerns about vomiting of blood by the staff. He denies any pain or other symptoms. He apparently has recently been started on aspirin. Denies any history consistent with melena or hematochezia. Blood work in the emergency department reveals a hemoglobin of 15. BUN/Cr 22/1.1. CT scan reveals findings of moderate hiatal hernia with fluid and debris in the lower esophagus compatible with gastroesophageal reflux and vomiting. He was admitted for inpatient management and surgical consultation. Patient had persistent vomiting of undigested food matter after he was admitted. This ultimately resolved. Plan was made for EGD the following day. Performing Provider:: Magno Bourne MD Referring Provider:: Ismael Parham Sedation:: MAC sedation Procedure:: Patient was taken to endoscopy procedure room. He was positioned in lateral decubitus position. Adequate intravenous sedation was achieved with anesthesia titration of propofol. Olympus endoscope was inserted via the oropharynx. Esophagus was cannulated. Endoscope was advanced. Number findings consistent with some mild esophageal dysmotility. In the distal esophagus there was exudative tissue consistent with possible erosive esophagitis. Gastroesophageal junction was encountered. Stomach was entered and cannulated and insufflated. Retroflexion revealed a moderately large sliding hiatal hernia. There were several nonbleeding Wilfrid's erosions. There is some diffuse minor gastropathy. Focal prepyloric nonerosive mild gastritis was encountered. Pylorus was traversed. Duodenal bulb and second and third portion of the duodenum appeared unremarkable. Endoscope was withdrawn to the stomach. Prepyloric gastric biopsy was obtained. Endoscope was withdrawn into the distal esophagus. Several biopsies were obtained in the distal esophagus at the site of exudative inflammation. Stomach was desufflated and the endoscope was withdrawn. Findings:: Exudative inflammatory tissue in the distal esophagus was biopsied Moderately large sliding hiatal hernia Nonbleeding Wilfrid's erosions in the cardia Focal prepyloric gastritis Recommendations:: Plan to follow-up on the biopsy results. Patient will possibly had retching and vomiting likely secondary to distal esophageal inflammatory tissue and due to large hiatal hernia may have had some minor bleeding from Wilfrid's erosions which is now resolved. I will go ahead and start him on a diet. If tolerates may be able to be discharged on proton pump inhibitors. Likely recommend soft diet for now. Complications:: None immediately apparent Estimated blood obtained (mL): 1
--- NOTE | 2021-07-30 12:52 | HMH.ANESCL ---
[facility] Anesthesia Checklist - Patient Identification Patient Identification: Verbal (Name & ) - Structural Data Admitted From: Inpatient Planned Operative Procedure/s: EGD Consent for Planned Operative Procedure(s) Verified: Yes Verified Documents: Surgical Consent - Chart Verification Results Verified: Creatinine - Airway Assessment C-Spine Mobility Assessed: Yes TMJ Mobility Assessed: Yes Dentition: Dentures-good fit - Neurological Assessment Level of Consciousness: Awake, Alert, Appropriate - Anesthesia Plan Anesthesia Risk discussed: Yes ASA Class: III Anesthesia Type: MAC [facility] History Medical History: Reports:: Carotid Stenosis, Depression, Gastroesophageal Reflux Disease(GERD), Hyperlipidemia, Renal Disease *Have you ever received a pneumonia vaccine?: Yes *Have you received a flu vaccine this season?: Yes Anesthesia experience/problems:: none Other Surgeries: Yes: No Previous Surgery, Colonoscopy, Colon Resection Amputation: No Fractures: No - *Social History Last grade of school completed: 7th or 8th Smoking Status: Current every day smoker Tobacco Type: cigarettes # Packs/Day (cigarettes): 2 #Yrs smoked (if former smoker): 46 Alcohol Intake: current Alcohol Intake Frequency:: 0-2 drinks per day Substance Use Type: denies use *Occupational Status:: retired Housing: assisted living facility Household Members: caregiver *Travel in the last 8 weeks: None - Psychiatric History Pschychiatric History:: Reports:: Depression Family Hx:: Asthma, Cancer, Coronary Artery Disease, Diabetes, Heart Attack
[2021-07-30 18:23] LABS: Basophils # 0.2 K/mm3 (0-0.2); Basophils % 1.4 % (0.1-2.0); Eosinophils # 0.1 K/mm3 (0.0-0.4); Eosinophils % 0.9 % (0.1-12.0); Hematocrit 40.4 % (42.0-52.0); Lymphocytes # 1.8 K/mm3 (0.7-4.5); Lymphocytes % 13.1 % (10-50); Mean Corpuscular HGB Conc 32.2 g/dL (31.8-35.4); Mean Corpuscular Hemoglobin 29.9 pg (27.0-31.2); Mean Platelet Volume 8.4 fl (7.4-10.4); Monocytes # 1.3 K/mm3 (0.1-1.0); Monocytes % 9.6 % (1.7-9.3); Platelet Count 299 K/mm3 (142-424); Red Blood Count 4.35 M/mm3 (4.60-6.20); Red Cell Distribution Width 13.8 % (11.5-17.5); White Blood Count 13.3 K/mm3 (4.8-10.8)
[2021-07-31] VITALS: BP 152/75; PULSE 96; RESP 20; TEMP 36.8; O2SAT 95
[2021-07-31 04:00] VITALS: BP 143/77; PULSE 93; RESP 20; TEMP 36.6; O2SAT 94
[2021-07-31 05:00] VITALS: BMI 23.5
--- NOTE | 2021-07-31 05:08 | PC.NURSE ---
Patient awake most of the night. Patient tolerating diet well. No nausea or vomiting noted throughout shift. VSS bed alarm on.
[2021-07-31 06:55] LABS: Basophils # 0.1 K/mm3 (0-0.2); Eosinophils # 0.2 K/mm3 (0.0-0.4); Eosinophils % 1.5 % (0.1-12.0); Hemoglobin 12.4 g/dL (14.1-18.0); Lymphocytes # 2.2 K/mm3 (0.7-4.5); Lymphocytes % 20.3 % (10-50); Mean Corpuscular HGB Conc 32.6 g/dL (31.8-35.4); Mean Corpuscular Hemoglobin 30.4 pg (27.0-31.2); Mean Corpuscular Volume 93.1 fl (80-94); Mean Platelet Volume 7.6 fl (7.4-10.4); Monocytes % 9.6 % (1.7-9.3); Neutrophils # 7.3 K/mm3 (1.8-7.8); Neutrophils % 67.5 % (37.0-80.0); Platelet Count 273 K/mm3 (142-424); Red Blood Count 4.08 M/mm3 (4.60-6.20); Red Cell Distribution Width 13.3 % (11.5-17.5); White Blood Count 10.8 K/mm3 (4.8-10.8)
[2021-07-31 07:47] LABS: Chloride 107 mmol/L (98-107); Sodium 138 mmol/L (136-145)
[2021-07-31 07:49] LABS: Alanine Aminotransferase 19 U/L (12-78); Aspartate Amino Transferase 24 U/L (17-59); Blood Urea Nitrogen 21 mg/dl (9-20); Creatinine Clearance Estimated 72 mL/min (50-200); Estimated Glomerular Filt Rate 75 ml/min (>60); GFR (African American) 90 ML/MIN (>60)
[2021-07-31 07:50] LABS: Albumin Level 3.2 g/dl (3.5-5.0); Albumin/Globulin Ratio 1.3 (1.1-1.8); Alkaline Phosphatase 66 U/L (38-126); Bilirubin,Total 0.6 mg/dl (0.2-1.3); Calcium 9.1 mg/dl (8.4-10.2); Carbon Dioxide 27 mmol/L (22.0-30.0); Globulin 2.5 g/dL (1.3-3.2); Glucose 140 mg/dl (74-100); Total Protein,Serum 5.7 g/dl (6.3-8.2)
--- NOTE | 2021-07-31 07:59 | PC.NURSE ---
Spoke with Simin from lab Potassium is 3.0
[2021-07-31 08:00] VITALS: BP 145/82; PULSE 86; RESP 20; TEMP 36.6; O2SAT 94
--- NOTE | 2021-07-31 09:49 | HMH.GSPN ---
Subjective Patient reports: no new complaints Progress Note: A&P (1) UGIB (upper gastrointestinal bleed) Status: Acute (2) Stroke Status: Acute (3) Esophagitis Status: Acute (4) Gastritis Status: Acute Assessment and plan: No definitive evidence of ongoing bleeding. Continue proton pump inhibition (5) Wilfrid lesion, acute Status: Acute Assessment and plan: No sign of active bleeding noted endoscopically (6) Sliding hiatal hernia Status: Acute Exam Vital signs and Labs for Last 24 Hours: Temp Pulse Resp BP Pulse Ox 97.9 F 86 20 145/82 H 94 L 07/31/21 08:00 07/31/21 08:00 07/31/21 08:00 07/31/21 08:00 07/31/21 08:00 Laboratory Results - last 24 hr 07/30/21 18:09: WBC 13.3 H D, RBC 4.35 L, Hgb 13.0 L, Hct 40.4 L, MCV 93.0, MCH 29.9, MCHC 32.2, RDW 13.8, Plt Count 299, MPV 8.4, Neut % (Auto) 75.0, Lymph % (Auto) 13.1, [place] % (Auto) 9.6 H, Eos % (Auto) 0.9, Baso % (Auto) 1.4, Neut # (Auto) 10.0 H, Lymph # (Auto) 1.8, [place] # (Auto) 1.3 H, Eos # (Auto) 0.1, Baso # (Auto) 0.2 07/31/21 06:10: WBC 10.8, RBC 4.08 L, Hgb 12.4 L, Hct 38.0 L, MCV 93.1, MCH 30.4, MCHC 32.6, RDW 13.3, Plt Count 273, MPV 7.6, Neut % (Auto) 67.5, Lymph % (Auto) 20.3, [place] % (Auto) 9.6 H, Eos % (Auto) 1.5, Baso % (Auto) 1.0, Neut # (Auto) 7.3, Lymph # (Auto) 2.2, [place] # (Auto) 1.0, Eos # (Auto) 0.2, Baso # (Auto) 0.1 07/31/21 06:10: Sodium 138, Potassium 3.0 L D, Chloride 107, Carbon Dioxide 27, Anion Gap 7.0, BUN 21 H, Creatinine 1.00, Estimated Creat Clear 72, Estimated GFR 75, Est GFR ( Amer) 90, Glucose 140 H, Calcium 9.1, Total Bilirubin 0.6, AST 24 D, ALT 19, Alkaline Phosphatase 66, Total Protein 5.7 L D, Albumin 3.2 L, Globulin 2.5, Albumin/Globulin Ratio 1.3 I & O for Last 24 hours: Intake & Output 07/28/21 07/29/21 07/30/21 07/31/21 11:59 11:59 11:59 11:59 Intake Total 251 / 251 1080 / 1080 Output Total 0 / 0 Balance 251 / 251 1080 / 1080 Weight 204 lb 15.984 oz 155 lb 6.4 oz - Constitutional no acute distress - *Routine Respiratory Exam Absent: respiratory distress - *Routine Cardiovascular Exam Absent: tachycardia
--- NOTE | 2021-07-31 11:58 | HMH.DCSUM ---
General - General Admission date:: 07/28/21 Discharge date: 07/31/21 HPI HPI: Patient is a 66-year-old male with a history of previous stroke and dementia who is a [facility] patient. He was brought to the emergency department overnight with concerns about vomiting of blood by the staff. He denies any pain or other symptoms. He apparently has recently been started on aspirin. Denies any history consistent with melena or hematochezia. Blood work in the emergency department reveals a hemoglobin of 15. BUN/Cr 22/1.1. CT scan reveals findings of moderate hiatal hernia with fluid and debris in the lower esophagus compatible with gastroesophageal reflux and vomiting. above per Dr Bourne Omeprazole is on board chronically. Hospital Course Hospital Course: pt has been slowly improving from the nursing staff patient has had vomiting mostly of undigested food with no evidence of any blood. Therefore, would not plan for early EGD due to lack of clinical bleeding and likely resultant limited visualization. May plan for EGD tomorrow. Of course if he shows significant decreasing hemoglobin may need to be done earlier. Patient is a 66-year-old male with a history of previous stroke and dementia who is a [facility] patient. He was brought to the emergency department overnight with concerns about vomiting of blood by the staff. He denies any pain or other symptoms. He apparently has recently been started on aspirin. Denies any history consistent with melena or hematochezia. Blood work in the emergency department reveals a hemoglobin of 15. BUN/Cr 22/1.1. CT scan reveals findings of moderate hiatal hernia with fluid and debris in the lower esophagus compatible with gastroesophageal reflux and vomiting. He was admitted for inpatient management and surgical consultation. pt is a 66-year-old male with a history of previous stroke and dementia who is a [facility] patient. He was brought to the emergency department overnight with concerns about vomiting of blood by the staff. He denies any pain or other symptoms. He apparently has recently been started on aspirin. Denies any history consistent with melena or hematochezia. Blood work in the emergency department reveals a hemoglobin of 15. BUN/Cr 22/1.1. CT scan reveals findings of moderate hiatal hernia with fluid and debris in the lower esophagus compatible with gastroesophageal reflux and vomiting. He was admitted for inpatient management and surgical consultation. Patient had persistent vomiting of undigested food matter after he was admitted. This ultimately resolved. Plan was made for EGD the following day. patient was taken to endoscopy procedure room. He was positioned in lateral decubitus position. Adequate intravenous sedation was achieved with anesthesia titration of propofol. Olympus endoscope was inserted via the oropharynx. Esophagus was cannulated. Endoscope was advanced. Number findings consistent with some mild esophageal dysmotility. In the distal esophagus there was exudative tissue consistent with possible erosive esophagitis. Gastroesophageal junction was encountered. Stomach was entered and cannulated and insufflated. Retroflexion revealed a moderately large sliding hiatal hernia. There were several nonbleeding Wilfrid's erosions. There is some diffuse minor gastropathy. Focal prepyloric nonerosive mild gastritis was encountered. Pylorus was traversed. Duodenal bulb and second and third portion of the duodenum appeared unremarkable. Endoscope was withdrawn to the stomach. Prepyloric gastric biopsy was obtained. Endoscope was withdrawn into the distal esophagus. Several biopsies were obtained in the distal esophagus at the site of exudative inflammation. Stomach was desufflated and the endoscope was withdrawn. Findings:: Exudative inflammatory tissue in the distal esophagus was biopsied Moderately large sliding hiatal hernia Nonbleeding Wilfrid's erosio
--- NOTE | 2021-07-31 12:45 | PC.NURSE ---
Spoke with Samantha KINCAID to give report at [facility]
--- NOTE | 2021-07-31 13:49 | PC.NURSE ---
We are waiting for ambulance to come get pt to take to facility. They are both currently out. They state that it would be a little bit of time before they could get here to transport pt.
--- NOTE | 2021-08-02 15:16 | CARE MANAGER ---
Spoke with nurse at [facility] during post-discharge interview, she states patient is up and doing well at this time. No needs at this time.
== END 2021-07-31 15:19 ==
LOC: ER 20:32 → 2ND 22:10
PROVIDERS: Surgery; Admitting Provider Emergency Medicine; Emergency Provider Emergency Medicine; PCP Family Medicine; Visit Provider Family Medicine
PROC: 0DJ08ZZ Inspection of Upper Intestinal Tract, Via Natural or Artificial Opening Endoscopic (ICD-10-PCS; CPT 43235; principal; 2021-07-30 11:30)
DX: K29.60 Other gastritis without bleeding (principal); F17.210 Nicotine dependence, cigarettes, uncomplicated; K21.9 Gastro-esophageal reflux disease without esophagitis; E78.5 Hyperlipidemia, unspecified; Z20.822 Contact with and (suspected) exposure to COVID-19; Z79.899 Other long term (current) drug therapy; R32 Unspecified urinary incontinence; K44.9 Diaphragmatic hernia without obstruction or gangrene
CPT/HCPCS: 43239; G0378; 36415; 71045; 74177; 80048; 80053; 82150; 82272; 83690; 85007; 85025; 85610; 88305; 88312; 88342; 93005; 99285; C9803; G0328; J1956; J2405; Q9967; U0003; U0005

== ENCOUNTER 2021-08-16 09:26 | Day surgery (SDC) | payer MEDICARE, MEDICAID, SELFPAY ==
[2021-08-16] VITALS (11 sets, daily range): BP systolic 94–140; BP diastolic 54–97; PULSE 57–96; RESP 12–18; TEMP 36.2–38; O2SAT 92–98; BMI 21.7
[2021-08-16 09:52] LABS: Coronavirus 19, PCR Not Detected (NotDetected); Influenza A, PCR Not Detected (NotDetected); Influenza B, PCR Not Detected (NotDetected)
[2021-08-16 10:03] LABS: Basophils # 0.2 K/mm3 (0-0.2); Basophils % 2.4 % (0.1-2.0); Eosinophils # 0.3 K/mm3 (0.0-0.4); Hematocrit 45.5 % (42.0-52.0); Lymphocytes # 1.8 K/mm3 (0.7-4.5); Lymphocytes % 24.3 % (10-50); Mean Corpuscular Hemoglobin 31.1 pg (27.0-31.2); Mean Corpuscular Volume 94.5 fl (80-94); Mean Platelet Volume 7.6 fl (7.4-10.4); Monocytes # 0.8 K/mm3 (0.1-1.0); Monocytes % 10.2 % (1.7-9.3); Neutrophils # 4.4 K/mm3 (1.8-7.8); Neutrophils % 59.1 % (37.0-80.0); Platelet Count 447 K/mm3 (142-424); Red Blood Count 4.81 M/mm3 (4.60-6.20); Red Cell Distribution Width 13.3 % (11.5-17.5); White Blood Count 7.5 K/mm3 (4.8-10.8)
[2021-08-16 10:13] LABS: Anion Gap 10.3 mEq/L (5-15); Blood Urea Nitrogen 19 mg/dl (9-20); Calcium 9.9 mg/dl (8.4-10.2); Carbon Dioxide 30 mmol/L (22.0-30.0); Chloride 103 mmol/L (98-107); Estimated Glomerular Filt Rate 67 ml/min (>60); GFR (African American) 81 ML/MIN (>60); Glucose 103 mg/dl (74-100); Potassium 4.3 mmoL/L (3.5-5.1); Sodium 139 mmol/L (136-145)
--- NOTE | 2021-08-16 13:37 | P.PN_ITS ---
[facility] Anesthesia Record Part I Intake, IV Amount: 400 Estimated blood loss (mL): 0 Urine output (mL): 0 Blood Pressure: 94/57 SaO2: 96 Pulse Rate: 96 Respiratory Rate: 16 Temperature: 97.7 F Patient is:: Drowsy, Oral/Nasal airway Stable to PACU at:: 13:36
--- NOTE | 2021-08-16 13:51 | PC.NURSE ---
F/C noted, no urine present. Leg bag intact
--- NOTE | 2021-08-16 14:18 | P.OP_ITS ---
Date of procedure: 08/16/21 Pre-op Diagnosis:: Gross hematuria with bladder mass noted on CT scan Post-op Diagnosis:: Gross hematuria from prostatic source, no evidence of bladder tumor. Procedure performed:: Cystoscopy with clot evacuation and fulguration of prostate bleeding Surgeon:: David Diaz MD SECURITIES RESEARCH ANALYST:: Teddy Mayen Anesthesia: LMA Estimated blood loss (mL): 0 Clinical Note:: 66-year-old white male who is resident of [facility] as noted blood in his Depends for for several months. Recent CT scan shows possible bladder mass. Operative findings:: Cystoscopy revealed no evidence of bladder tumors. There was severe trabeculation but the prostate did not appear to be severely obstructing. Patient does have history of stroke and likely has some dyssynergia. There were small bladder clots noted in the bladder that were irrigated free. Small amount of bleeding was noted at the bladder neck and this was fulgurated with the Bugbee electrode. Operative note:: Patient taken to the operating room after informed consent was obtained. Placed on the operating table in the supine position and general anesthesia administered. Preoperative antibiotics and sequential compression devices placed. He was then placed into the dorsal lithotomy position prepped draped in a standard surgical fashion. The 22 Casey passed into the urethra and into the bladder. There was by lobar hyperplasia present. The bladder fluid was a bit murky and he was irrigated. Cystoscopy revealed no evidence of bladder tumors. There was severe trabeculation however. The bladder was examined in a systematic fashion with a 30 and 70 degree lenses. The ureteral orifices in their normal anatomic position with clear efflux of urine. Bladder neck showed couple of bleeding points at the 6 o'clock position and the Bugbee electrode was used to fulgurate these. The scope then removed and a 20 Qat[place] Alberts catheter placed. Patient tolerated procedure well. His urine remains clear in the recovery room his catheter will be removed. Discussed the findings with his family member and no further work-up is indicated at this time. I did place him on finasteride to help with any prostate bleeding. Condition: stable Disposition: same day Specimens:: None Complications:: None
--- NOTE | 2021-08-16 18:55 | P.PN_ITS ---
[facility] Anesthesia Record Part II Discharge Time: 14:06 Destination: Surgical Day Care (OP Surgery) PACU nurse assessment reviewed?: Yes Patient Condition:: Good Anesthesia Complications:: None Swallowing reflex intact?: Yes Cyanosis?: No Blood Pressure: 124/68 Pulse Rate: 84 Temperature: 97.7 F Mental Status: Alert & Oriented (Baseline disorientation) Pain level:: 0 Nausea and/or vomitting:: None Intake, IV Amount: 0
== END 2021-08-16 14:40 | disposition home or self-care (01) ==
LOC: OR 09:29
PROVIDERS: PCP Family Medicine; Visit Provider Urology
PROC: 0TBB8ZZ Excision of Bladder, Via Natural or Artificial Opening Endoscopic (ICD-10-PCS; principal; 2021-08-16 11:15)
DX: R31.0 Gross hematuria (principal); N42.89 Other specified disorders of prostate; F32.A Depression, unspecified; K21.9 Gastro-esophageal reflux disease without esophagitis; E78.5 Hyperlipidemia, unspecified; N28.9 Disorder of kidney and ureter, unspecified; Z86.73 Personal history of transient ischemic attack (TIA), and cerebral infarction without residual deficits; Z79.899 Other long term (current) drug therapy
CPT/HCPCS: 52214; 36415; 80048; 85025; 96374; C9803; J2704; U0003; U0005

== ENCOUNTER 2021-12-23 08:28 | Emergency (ER) | payer MEDICARE, MEDICAID, SELFPAY ==
[2021-12-23] VITALS (7 sets, daily range): BP systolic 101–132; BP diastolic 57–94; PULSE 65–97; RESP 17–18; TEMP 36.4–37.1; O2SAT 93–98; BMI 18.4
--- NOTE | 2021-12-23 08:56 | ECG_ITS ---
APPROVED REPORT Exam: Resting ECG HR:98 bpm ECG Measurements Heart Rate 98 AXES CO 166 P 53 QRSd 80 QRS -69 QT 356 T 48 QTc 411 Conclusion SINUS RHYTHM Incomplete right bundle branch block Late R wave progression, previously noted Left axis deviation ABNORMAL ECG UNCONFIRMED REPORT Electronically signed by : Ismael Caraballo MD 12/23/2021 13:48:54
--- NOTE | 2021-12-23 09:00 | PC.NURSE ---
ems report taken and initial assessment on pt performed by this RN. pt handed off to CODI marquis
--- NOTE | 2021-12-23 09:11 | HMH.EDGENADL ---
Discharge Plan Disposition Patient Disposition: Home, Self-Care Condition: Good Prescriptions Prescriptions: New sulfamethoxazole-trimethoprim [Bactrim DS] 800-160 mg tablet 1 tab PO BID Qty: 20 0RF No Action bupropion HCl 75 mg tablet 75 mg PO BID bisacodyl [Dulcolax (bisacodyl)] 5 mg tablet,delayed release (DR/EC) 10 mg PO HSP PRN (Reason: Constipation) guaifenesin 400 mg tablet 400 mg PO BID senna 8.6 mg capsule 8.6 mg PO DAILY aspirin 81 mg tablet,delayed release (DR/EC) 81 mg PO DAILY hydrocodone-acetaminophen 5-325 mg tablet 1 tab PO Q6H PRN (Reason: pain) Qty: 120 0RF pravastatin 40 MG tablet 40 mg PO HS pantoprazole 40 MG tablet,delayed release (DR/EC) 40 mg PO BID metoclopramide HCl 10 MG tablet 10 mg PO QID Referrals Follow up/Referrals: Jak Parham MD [Primary Care Provider] - See instructions Activity Restrictions/Add. Instructions Additional Instructions/Restrictions: Bactrim DS as prescribed. Follow-up with Dr. Parham for further care. Additional instructions for URINARY TRACT INFECTION: Take antibiotic as prescribed. See your physician in 2-3 days for follow up and culture results. Return immediately if you have an uncontrollable fever greater than 102 degrees, severe back or abdominal pain, inability to urinate, or repetitive vomiting. Clinical Impressions Clinical Impression: Hallucinations Urinary tract infection Qualifiers: Urinary tract infection type: site unspecified Hematuria presence: with hematuria Qualified Code(s): N39.0 - Urinary tract infection, site not specified Instructions Patient Instructions: DI for Altered Mental Status Discharge ED Provider: Shayne Putnam General Adult HPI General Chief complaint: Altered Mental Status Stated complaint: altered mental status Time Seen by Provider: 12/23/21 09:11 History of Present Illness HPI narrative: Patient is sent in from extended care facility for altered mental status. Reportedly hallucinating. Our nurse states that she was given report to the patient had a urine analysis showing blood and leukocytes and is treatment for UTI is deferred pending culture results. He has an indwelling garcia catheter. The patient states that he was sent here for delusions but says he is not having delusions and is not having hallucinations. Not seeing things or hearing voices. He is oriented to person place and day. He denies any current complaints including any pain, difficulty breathing, nausea, weakness, visual disturbance, numbness or weakness. Related Data Home Medications Medication Instructions Recorded Confirmed aspirin 81 mg tablet,delayed 81 mg PO DAILY Blood thinner/CVA 09/03/18 08/16/21 release bisacodyl 5 mg tablet,delayed 10 mg PO HSP PRN Constipation 07/23/21 08/16/21 release (Dulcolax (bisacodyl)) bupropion HCl 75 mg tablet 75 mg PO BID Depression 07/23/21 08/16/21 guaifenesin 400 mg tablet 400 mg PO BID Congestion/chest 07/23/21 08/16/21 congesti sennosides 8.6 mg capsule (senna) 8.6 mg PO DAILY constipation 07/23/21 08/16/21 metoclopramide HCl 10 mg tablet 10 mg PO QID acid reflux 08/16/21 08/16/21 pantoprazole 40 mg tablet,delayed 40 mg PO BID GI Bleed 08/16/21 08/16/21 release pravastatin 40 mg tablet 40 mg PO HS Cholesterol 08/16/21 08/16/21 Previous Rx's Medication Instructions Recorded hydrocodone 5 mg-acetaminophen 325 1 tab PO Q6H PRN pain #120 tabs 12/09/21 mg tablet sulfamethoxazole 800 1 tab PO BID #20 tabs 12/23/21 mg-trimethoprim 160 mg tablet (Bactrim DS) Allergies Allergy/AdvReac Type Severity Reaction Status Date / Time No Known Allergies Allergy Verified 08/16/21 11:05 PFSH PFSH Social History Smoking Status: Never smoker alcohol intake: never substance use type: denies use current occupational status: disabled Travel in the last 8 weeks: None household members: caregiver ho
--- NOTE | 2021-12-23 09:15 | PC.NURSE ---
at the bedside
--- NOTE | 2021-12-23 09:23 | XR_ITS ---
FINAL REPORT CLINICAL HISTORY: AMS FINDINGS: The heart size is at the upper limits of normal. The mediastinum is normal. There are mild chronic changes in both lungs particularly at the lung bases. There is no focal infiltrate or edema. There are no pleural effusions. There is no pneumothorax. There is no osseous abnormality. IMPRESSION: No acute cardiopulmonary process Reviewed, Interpreted and Dictated by Nithin Nelson MD Transcribed by Ky Martínez Authenticated and [facility]
--- NOTE | 2021-12-23 09:23 | CT_ITS ---
FINAL REPORT TECHNIQUE: Axial CT images were performed through the head. Coronal reformatted images were submitted. This study was performed with techniques to keep radiation doses as low as reasonably achievable (ALARA). Individualized dose reduction techniques using automated exposure control or adjustment of mA and/or kV according to the patient's size were employed. CLINICAL HISTORY: AMS FINDINGS: The ventricles are normal in size. There is a large area of encephalomalacia in the right MCA distribution consistent with prior infarct. There is encephalomalacia in the left occipital lobe due to prior infarct. There is moderate decreased attenuation in the deep white matter consistent with chronic ischemia. There is no evidence of acute hemorrhage. There is no mass or edema identified. There is no abnormal extra-axial fluid seen. There is mild a lobular mucoperiosteal thickening in the right maxillary sinus. There are no sinus air-fluid levels. IMPRESSION: Encephalomalacia in the right MCA distribution and left occipital lobe from prior infarcts. No acute intracranial abnormality. Reviewed, Interpreted and Dictated by Nithin Nelson MD Transcribed by Ky Martínez Authenticated and [facility]
[2021-12-23 09:30] LABS: Coronavirus 19, PCR Not Detected (NotDetected); Influenza A, PCR Not Detected (NotDetected); Influenza B, PCR Not Detected (NotDetected)
--- NOTE | 2021-12-23 09:31 | PC.NURSE ---
state guardian Ceci Crowder wants to notified for admission of pt
[2021-12-23 09:35] LABS: Basophils # 0.2 K/mm3 (0-0.2); Basophils % 2.4 % (0.1-2.0); Eosinophils # 0.3 K/mm3 (0.0-0.4); Eosinophils % 3.3 % (0.1-12.0); Hematocrit 47.8 % (42.0-52.0); Mean Corpuscular HGB Conc 31.3 g/dL (31.8-35.4); Mean Corpuscular Hemoglobin 29.4 pg (27.0-31.2); Mean Platelet Volume 7.8 fl (7.4-10.4); Monocytes # 0.9 K/mm3 (0.1-1.0); Monocytes % 9.3 % (1.7-9.3); Neutrophils # 6.2 K/mm3 (1.8-7.8); Neutrophils % 63.9 % (37.0-80.0); Platelet Count 313 K/mm3 (142-424); Red Blood Count 5.09 M/mm3 (4.60-6.20); Red Cell Distribution Width 14.1 % (11.5-17.5); White Blood Count 9.6 K/mm3 (4.8-10.8)
[2021-12-23 09:36] LABS: Chloride 108 mmol/L (98-107); Potassium 4.5 mmoL/L (3.5-5.1); Sodium 143 mmol/L (136-145)
[2021-12-23 09:39] LABS: Alanine Aminotransferase 14 U/L (12-78); Albumin Level 4.1 g/dl (3.5-5.0); Albumin/Globulin Ratio 1.4 (1.1-1.8); Alkaline Phosphatase 123 U/L (38-126); Anion Gap 13.5 mEq/L (5-15); Aspartate Amino Transferase 29 U/L (17-59); Bilirubin,Total 0.6 mg/dl (0.2-1.3); Blood Urea Nitrogen 26 mg/dl (9-20); Calcium 9.2 mg/dl (8.4-10.2); Carbon Dioxide 26 mmol/L (22.0-30.0); Creatinine Clearance Estimated 63 mL/min (50-200); Estimated Glomerular Filt Rate 84 ml/min (>60); GFR (African American) 102 ML/MIN (>60); Glucose 95 mg/dl (74-100); Total Protein,Serum 7.1 g/dl (6.3-8.2)
[2021-12-23 09:52] LABS: Troponin I < 0.01 ng/ml (0.00-0.034)
--- NOTE | 2021-12-23 09:54 | PC.NURSE ---
pt back from ct
[2021-12-23 10:14] LABS: Microscopic, Urine URINE MICROSCOPIC (MICROSCOPIC)
[2021-12-23 10:17] LABS: Appearance,Urine TURBID (Clear); Bilirubin,Urine Negative (Negative); Blood, Urine 3+ (Negative); Color,Urine YELLOW (Yellow); Glucose,Urine (UA) Negative (Negative); Ketones,Urine Negative (Negative); Leukocyte Esterase,Urine 2+ (Negative); Nitrate,Urine POSITIVE (Negative); Protein,Urine 2+ (Negative); Specific Gravity, Urine >= 1.030 (1.005-1.030); Urobilinogen,Urine 0.2 EU/dl (0.2)
[2021-12-23 10:31] LABS: Bacteria,Urine 4+ /lpf; Squamous Epithelial Cell,Urine Occasional #/hpf (0-5)
[2021-12-23 10:32] LABS: RBC,Urine TNTC #/hpf (0-3); WBC,Urine 50-100 #/hpf (0-3)
--- NOTE | 2021-12-23 10:49 | PC.NURSE ---
DR SHELBY YORK
--- NOTE | 2021-12-23 10:51 | PC.NURSE ---
DR CLEMENTS SPEAKING WITH DR RYAN
--- NOTE | 2021-12-23 11:13 | PC.NURSE ---
called report to custodial receiving RN
--- NOTE | 2021-12-23 11:24 | PC.NURSE ---
[facility] called for transport
--- NOTE | 2021-12-23 11:30 | PC.NURSE ---
MARY OSORIO STATE GUARDIAN NOTIFIED OF PT GOING BACK TO [facility]
== END 2021-12-23 11:44 | disposition home or self-care (01) ==
PROVIDERS: Emergency Provider Emergency Medicine; PCP Family Medicine
DX: R41.82 Altered mental status, unspecified (principal); N39.0 Urinary tract infection, site not specified; G93.89 Other specified disorders of brain; R10.9 Unspecified abdominal pain; M54.9 Dorsalgia, unspecified; R50.9 Fever, unspecified; Z20.822 Contact with and (suspected) exposure to COVID-19; K59.00 Constipation, unspecified; I45.10 Unspecified right bundle-branch block; I63.331 Cerebral infarction due to thrombosis of right posterior cerebral artery; Z79.82 Long term (current) use of aspirin; Z79.1 Long term (current) use of non-steroidal anti-inflammatories (NSAID); Z79.899 Other long term (current) drug therapy; Z96.0 Presence of urogenital implants
CPT/HCPCS: 70450; 71045; 80053; 81001; 84484; 85025; 87086; 93005; 96361; 96374; 99285; C9803; J0696; U0003; U0005

== ENCOUNTER 2022-03-02 15:24 | Emergency (ER) | payer MEDICARE, MEDICAID, SELFPAY ==
[2022-03-02 15:28] VITALS: BMI 22.1
--- NOTE | 2022-03-02 15:28 | CT_ITS ---
FINAL REPORT TECHNIQUE: Axial imaging of the head was obtained without contrast. This study was performed with techniques to keep radiation doses as low as reasonably achievable, (ALARA). Individualized dose reduction techniques using automated exposure control or adjustment of mA and/or kV according to the patient''s size were employed. CLINICAL HISTORY: ams COMPARISON: December 2021 FINDINGS: There is moderate diffuse atrophy. There is a large area of encephalomalacia in the anterior right temporal lobe extending to the right parietal lobe. There is localized encephalomalacia in the left posterior parietal lobe. Encephalomalacia is stable as compared to prior. There is moderate ventriculomegaly. There is no evidence of hemorrhage. No masses are identified. No extra-axial fluid is seen. There is minimal mucoperiosteal thickening in the right maxillary sinus. There is no acute osseous abnormality. IMPRESSION: Stable areas of encephalomalacia. Moderate atrophy. No acute intracranial abnormality. Reviewed, Interpreted and Dictated by Nithin Nelson MD Transcribed by Ky Martínez Authenticated and . [facility]
--- NOTE | 2022-03-02 15:29 | PC.NURSE ---
LAB AWARE OF BLOOD DRAW
[2022-03-02 15:38] LABS: Microscopic, Urine URINE MICROSCOPIC (MICROSCOPIC)
[2022-03-02 15:41] VITALS: BP 125/87; PULSE 82; RESP 20; TEMP 36.8; O2SAT 99; BMI 20.6
[2022-03-02 15:45] LABS: Appearance,Urine CLOUDY (Clear); Bilirubin,Urine Negative (Negative); Blood, Urine 3+ (Negative); Color,Urine YELLOW (Yellow); Glucose,Urine (UA) Negative (Negative); Ketones,Urine Negative (Negative); Leukocyte Esterase,Urine 1+ (Negative); Nitrate,Urine Negative (Negative); PH,Urine 5.5 (5.0-8.5); Protein,Urine 2+ (Negative); Specific Gravity, Urine >= 1.030 (1.005-1.030); Urobilinogen,Urine 0.2 EU/dl (0.2)
[2022-03-02 15:56] LABS: Basophils # 0.1 K/mm3 (0-0.2); Basophils % 1.2 % (0.1-2.0); Eosinophils # 0.3 K/mm3 (0.0-0.4); Eosinophils % 3.6 % (0.1-12.0); Hematocrit 44.1 % (42.0-52.0); Hemoglobin 13.9 g/dL (14.1-18.0); Lymphocytes # 1.9 K/mm3 (0.7-4.5); Lymphocytes % 21.4 % (10-50); Mean Corpuscular HGB Conc 31.4 g/dL (31.8-35.4); Mean Corpuscular Hemoglobin 29.9 pg (27.0-31.2); Mean Corpuscular Volume 95.3 fl (80-94); Mean Platelet Volume 7.9 fl (7.4-10.4); Monocytes # 0.6 K/mm3 (0.1-1.0); Monocytes % 7.1 % (1.7-9.3); Neutrophils % 66.7 % (37.0-80.0); Platelet Count 350 K/mm3 (142-424); Red Blood Count 4.63 M/mm3 (4.60-6.20); Red Cell Distribution Width 13.8 % (11.5-17.5)
[2022-03-02 16:14] LABS: Amorphous Sediment,Urine 2+ /lpf; Bacteria,Urine 1+ /lpf; RBC,Urine 20-50 #/hpf (0-3)
[2022-03-02 16:16] LABS: Alanine Aminotransferase 20 U/L (12-78); Albumin Level 4.1 g/dl (3.5-5.0); Albumin/Globulin Ratio 1.6 (1.1-1.8); Alkaline Phosphatase 120 U/L (38-126); Anion Gap 11.1 mEq/L (5-15); Aspartate Amino Transferase 25 U/L (17-59); Bilirubin,Total 0.2 mg/dl (0.2-1.3); Blood Urea Nitrogen 34 mg/dl (9-20); Calcium 9.7 mg/dl (8.4-10.2); Carbon Dioxide 27 mmol/L (22.0-30.0); Chloride 106 mmol/L (98-107); Creatinine Clearance Estimated 54 mL/min (50-200); Estimated Glomerular Filt Rate 51 ml/min (>60); GFR (African American) 61 ML/MIN (>60); Globulin 2.6 g/dL (1.3-3.2); Glucose 110 mg/dl (74-100); Potassium 4.1 mmoL/L (3.5-5.1); Sodium 140 mmol/L (136-145); Total Protein,Serum 6.7 g/dl (6.3-8.2)
[2022-03-02 17:08] VITALS: BP 118/59; PULSE 89; O2SAT 96
[2022-03-02 17:31] VITALS: BP 115/59; PULSE 86; O2SAT 97
[2022-03-02 18:04] VITALS: BP 111/73; PULSE 93; O2SAT 98
--- NOTE | 2022-03-02 18:06 | HMH.EDGENADL ---
Discharge Plan Disposition Patient Disposition: Home, Self-Care Condition: Good Chief Complaint: Altered Mental Status Prescriptions Prescriptions: No Action bupropion HCl 75 mg tablet 75 mg PO BID bisacodyl [Dulcolax (bisacodyl)] 5 mg tablet,delayed release (DR/EC) 10 mg PO HSP PRN (Reason: Constipation) guaifenesin 400 mg tablet 400 mg PO BID senna 8.6 mg capsule 8.6 mg PO DAILY aspirin 81 mg tablet,delayed release (DR/EC) 81 mg PO DAILY hydrocodone-acetaminophen 5-325 mg tablet 1 tab PO Q6H PRN (Reason: pain) Qty: 120 0RF pravastatin 40 MG tablet 40 mg PO HS pantoprazole 40 MG tablet,delayed release (DR/EC) 40 mg PO BID metoclopramide HCl 10 MG tablet 10 mg PO QID sulfamethoxazole-trimethoprim [Bactrim DS] 800-160 mg tablet 1 tab PO BID Qty: 20 0RF Referrals Follow up/Referrals: Provider,Referral, MD [Primary Care Provider] - See instructions Activity Restrictions/Add. Instructions Additional Instructions/Restrictions: Follow-up with primary care provider for further care. Urine culture has been performed, results generally take 2 to 3 days. Follow-up the results of this test with your primary care provider within 2 to 3 days. Clinical Impressions Clinical Impression: Change in mental status, Acute dehydration Instructions Patient Instructions: DI for Altered Mental Status, DI for Dehydration -- Adult Discharge ED Provider: Shayne Putnam General Adult HPI General Chief complaint: Altered Mental Status Stated complaint: ams Time Seen by Provider: 03/02/22 18:01 Mode of Arrival: EMS Source of Information: Patient Limitations: No Limitations Description of Symptoms (Recalled from ER Triage Doc. by RN): pt to ed via ems c/o ams. long-term reports pt has been more altered than usual today. pt unable to answer questions or give any additional information. History of Present Illness HPI narrative: Patient is brought in by ambulance from long-term. Reportedly is sent here for altered mental status. The patient is awake and alert and very verbal on arrival. He is denying any complaints whatsoever. He says he has no pain. He is having no difficulty breathing. He has a chronic Alberts catheter. Denies any urinary problems. No vomiting or diarrhea. No cough or URI symptoms. He wants to go home. Related Data Home Medications Medication Instructions Recorded Confirmed aspirin 81 mg tablet,delayed 81 mg PO DAILY Blood thinner/CVA 09/03/18 08/16/21 release bisacodyl 5 mg tablet,delayed 10 mg PO HSP PRN Constipation 07/23/21 08/16/21 release (Dulcolax (bisacodyl)) bupropion HCl 75 mg tablet 75 mg PO BID Depression 07/23/21 08/16/21 guaifenesin 400 mg tablet 400 mg PO BID Congestion/chest 07/23/21 08/16/21 congesti sennosides 8.6 mg capsule (senna) 8.6 mg PO DAILY constipation 07/23/21 08/16/21 metoclopramide HCl 10 mg tablet 10 mg PO QID acid reflux 08/16/21 08/16/21 pantoprazole 40 mg tablet,delayed 40 mg PO BID GI Bleed 08/16/21 08/16/21 release pravastatin 40 mg tablet 40 mg PO HS Cholesterol 08/16/21 08/16/21 Previous Rx's Medication Instructions Recorded hydrocodone 5 mg-acetaminophen 325 1 tab PO Q6H PRN pain #120 tabs 12/09/21 mg tablet sulfamethoxazole 800 1 tab PO BID #20 tabs 12/23/21 mg-trimethoprim 160 mg tablet (Bactrim DS) Allergies Allergy/AdvReac Type Severity Reaction Status Date / Time No Known Allergies Allergy Verified 08/16/21 11:05 [facility] Disclaimer: The information contained in this section may have been updated after the patient was seen, as this information can be updated by other users. Social History Smoking Status: Never smoker alcohol intake: never substance use type: denies use current occupational status: disabled Travel in the last 8 weeks: None household members: caregiver housing: assisted living facility caffeine: Yes ROS Obtained
--- NOTE | 2022-03-02 18:58 | PC.NURSE ---
pt is ready to be released. called [facility] to come get the pt for transport
--- NOTE | 2022-03-02 19:10 | PC.NURSE ---
attempted to call report to [facility] x3 with no answer
--- NOTE | 2022-03-02 20:09 | INFXCTL.NOTE ---
Violet here to transfer pt to [facility]
[2022-03-02 20:17] VITALS: BP 115/74; PULSE 86; RESP 18; TEMP 36.8; O2SAT 98
--- NOTE | 2022-03-02 21:09 | PC.NURSE ---
Mary from [facility] called, gave report.
== END 2022-03-02 20:19 | disposition home or self-care (01) ==
PROVIDERS: Emergency Provider Emergency Medicine
DX: N39.0 Urinary tract infection, site not specified (principal); E86.0 Dehydration; Z86.73 Personal history of transient ischemic attack (TIA), and cerebral infarction without residual deficits
CPT/HCPCS: 36415; 70450; 80053; 81001; 85025; 87086; 87088; 87186; 96365; 99284

== ENCOUNTER 2022-04-10 15:02 | Inpatient (IN) | payer MEDICARE, MEDICAID, SELFPAY ==
[2022-04-10] VITALS (9 sets, daily range): BP systolic 96–159; BP diastolic 66–111; PULSE 67–142; RESP 16–40; TEMP 36.8–38.2; O2SAT 95–98; BMI 28.1; BMI 20.5
--- NOTE | 2022-04-10 15:14 | ECG_ITS ---
APPROVED REPORT Exam: Resting ECG HR:139 bpm ECG Measurements Heart Rate 139 AXES IA 143 P 270 QRSd 82 QRS -87 QT 362 T -88 QTc 443 Conclusion ECTOPIC ATRIAL TACHYCARDIA WITH OCCASIONAL ECTOPIC PREMATURE COMPLEXES Severe artifact limits other interpretation UNCONFIRMED REPORT Electronically signed by : Ismael Caraballo MD 04/10/2022 16:54:57
--- NOTE | 2022-04-10 15:40 | XR_ITS ---
PROCEDURE INFORMATION: Exam: XR Chest Exam date and time: 04/10/2022 4:40 PM Age: 67 years old Clinical indication: Other: AMS TECHNIQUE: Imaging protocol: Radiologic exam of the chest. Views: 1 view. COMPARISON: CR XR CHEST PORTABLE 12/23/2021 10:03 AM FINDINGS: Lungs: No evidence of pneumonia or interstitial edema. Pleural spaces: Unremarkable. No pleural effusion. No pneumothorax. Heart/Mediastinum: Unremarkable. No cardiomegaly. Bones/joints: Unremarkable. IMPRESSION: No evidence of pneumonia or interstitial edema.
--- NOTE | 2022-04-10 15:42 | CT_ITS ---
PROCEDURE INFORMATION: Exam: CT Head Without Contrast Exam date and time: 04/10/2022 4:24 PM Age: 67 years old Clinical indication: Altered mental status/memory loss; Confusion or disorientation; Additional info: AMS TECHNIQUE: Imaging protocol: Computed tomography of the head without contrast. Radiation optimization: All CT scans at this facility use at least one of these dose optimization techniques: automated exposure control; mA and/or kV adjustment per patient size (includes targeted exams where dose is matched to clinical indication); or iterative reconstruction. COMPARISON: CT HEAD/BRAIN WO CON 03/02/2022 4:13 PM FINDINGS: Brain: There is redemonstration of large region of encephalomalacia/gliosis encompassing the right frontotemporoparietal region and left occipital lobe. Right wallerian degeneration noted.Brain: There is no evidence of acute intracranial hemorrhage, extra-axial collection or locoregional mass effect. There are scattered hypodensities in the periventricular and subcortical white matter. The appearance is nonspecific, but most likely represents chronic small vessel disease in a person of this age Cerebral ventricles: The ventricles, sulci and cisterns are normal in size and configuration for patient's age. No hydrocephalus or midline structure shift Pituitary gland and sella: Sellar/parasellar structures, craniocervical junction and orbits are unremarkable Paranasal sinuses: Scattered mucosal thickening throughout the maxillary sinuses. Mastoid air cells: Visualized mastoid air cells are well aerated. Bones/joints: No calvarial fracture Soft tissues: Unremarkable. IMPRESSION: 1. No acute intracranial abnormality. No calvarial fracture. 2. Regions of encephalomalacia/gliosis as above
[2022-04-10 15:52] LABS: Potassium 4.2 mmoL/L (3.5-5.1); Sodium 143 mmol/L (136-145)
[2022-04-10 15:53] LABS: Chloride 108 mmol/L (98-107)
[2022-04-10 15:55] LABS: Alanine Aminotransferase 30 U/L (12-78); Albumin Level 4.3 g/dl (3.5-5.0); Albumin/Globulin Ratio 1.3 (1.1-1.8); Alkaline Phosphatase 120 U/L (38-126); Anion Gap 17.2 mEq/L (5-15); Aspartate Amino Transferase 31 U/L (17-59); Bilirubin,Total 0.5 mg/dl (0.2-1.3); Blood Urea Nitrogen 23 mg/dl (9-20); Calcium 9.8 mg/dl (8.4-10.2); Carbon Dioxide 22 mmol/L (22.0-30.0); Creatinine Clearance Estimated 50 mL/min (50-200); Estimated Glomerular Filt Rate 40 ml/min (>60); GFR (African American) 49 ML/MIN (>60); Globulin 3.4 g/dL (1.3-3.2); Glucose 192 mg/dl (74-100); Total Protein,Serum 7.7 g/dl (6.3-8.2)
[2022-04-10 15:59] LABS: Lactic Acid 4.3 mmol/L (0.7-2.1)
--- NOTE | 2022-04-10 15:59 | PC.NURSE ---
MD aware of lactic 4.3
[2022-04-10 16:05] LABS: Basophils # 0.1 K/mm3 (0-0.2); Basophils % 0.4 % (0.1-2.0); Eosinophils # 0.1 K/mm3 (0.0-0.4); Eosinophils % 0.2 % (0.1-12.0); Hematocrit 44.5 % (42.0-52.0); Hemoglobin 14.6 g/dL (14.1-18.0); Lymphocytes # 1.2 K/mm3 (0.7-4.5); Lymphocytes % 4.2 % (10-50); Mean Corpuscular HGB Conc 32.8 g/dL (31.8-35.4); Mean Corpuscular Hemoglobin 29.7 pg (27.0-31.2); Mean Corpuscular Volume 90.4 fl (80-94); Mean Platelet Volume 7.3 fl (7.4-10.4); Monocytes # 1.5 K/mm3 (0.1-1.0); Monocytes % 5.4 % (1.7-9.3); Neutrophils # 25.7 K/mm3 (1.8-7.8); Neutrophils % 89.9 % (37.0-80.0); Platelet Count 387 K/mm3 (142-424); Red Blood Count 4.92 M/mm3 (4.60-6.20); White Blood Count 28.6 K/mm3 (4.8-10.8)
[2022-04-10 16:08] LABS: MANUAL DIFFERENTIAL MANUAL DIFFERENTIAL (MANUAL DIFF)
[2022-04-10 16:10] LABS: Eosinophils % 1 % (0-3); Lymphocytes % 10 % (10-50); Monocytes % 1 % (2-9); Neutrophils % 87 % (42-76); Platelet Estimate Normal; RBC Morphology Normal; Total Cells Counted 100
[2022-04-10 16:19] LABS: Magnesium 1.9 mg/dl (1.6-2.3)
--- NOTE | 2022-04-10 16:35 | PC.NURSE ---
Heidi KINCAID notified by lab of Trop 0.2
[2022-04-10 16:50] LABS: Microscopic, Urine URINE MICROSCOPIC (MICROSCOPIC)
[2022-04-10 16:51] LABS: Thyroid Stimulating Hormone 1.47 uIU/mL (0.465-4.68)
[2022-04-10 17:02] LABS: Appearance,Urine CLOUDY (Clear); Bilirubin,Urine Negative (Negative); Blood, Urine 1+ (Negative); Color,Urine YELLOW (Yellow); Glucose,Urine (UA) Negative (Negative); Ketones,Urine Negative (Negative); Leukocyte Esterase,Urine 2+ (Negative); Nitrate,Urine Negative (Negative); PH,Urine 8.5 (5.0-8.5); Protein,Urine 3+ (Negative); Specific Gravity, Urine <= 1.005 (1.005-1.030); Urobilinogen,Urine 0.2 EU/dl (0.2)
--- NOTE | 2022-04-10 17:02 | ECG_ITS ---
APPROVED REPORT Exam: Resting ECG HR:132 bpm ECG Measurements Heart Rate 132 AXES SD 153 P 67 QRSd 79 QRS -77 QT 320 T 66 QTc 398 Conclusion SINUS TACHYCARDIA WITH OCCASIONAL ECTOPIC PREMATURE COMPLEXES POSSIBLE ANTERIOR MYOCARDIAL INFARCTION , PROBABLY OLD [30 ms Q WAVE IN V3/V4, OR R < 0.2 mV IN V4] INFERIOR MYOCARDIAL INFARCTION , PROBABLY OLD [40+ ms Q WAVE AND/OR ST/T ABNORMALITY IN II/aVF] ABNORMAL ECG UNCONFIRMED REPORT Electronically signed by : Ismael Caraballo MD 04/11/2022 19:25:06
[2022-04-10 17:07] LABS: Amorphous Sediment,Urine Trace /lpf; Bacteria,Urine 3+ /lpf; WBC,Urine 20-50 #/hpf (0-3)
[2022-04-10 17:08] LABS: Triple Phosphate Crystal,Urine 1+ /lpf
[2022-04-10 18:35] LABS: Reflex Lactic Add Lactic Reflex
--- NOTE | 2022-04-10 19:24 | PC.NURSE ---
PER RESIDENTIAL STAFF, [facility] CATH WAS CHANGED TODAY.
[2022-04-10 19:29] LABS: Troponin I 0.25 ng/ml (0.00-0.034)
[2022-04-10 20:34] LABS: Coronavirus 19, PCR Not Detected (NotDetected); Influenza A, PCR Not Detected (NotDetected); Influenza B, PCR Not Detected (NotDetected)
--- NOTE | 2022-04-10 20:41 | EXP.HP ---
History of Present Illness *Admission Date: 04/10/22 *Reason for visit:: Change in mental status, confusion outside normal *History of present illness: Mr. Smith is a 67-year-old male who is a resident of a long-term care facility. Per Chart review he has a history of Stroke, Chronic Dementia, chronic indwelling garcia, and history of Covid 19. He presented to [facility] from the local [place], [facility] due to confusion outside his normal. Per discussion with ER physician the patient was also agitated and required Haldol in the ER. Work-up in the ER was concerning for Sepsis with WBC of 28.6, Lactic Acid of 4.3, HR of 142 and Temperture of 100.7. Suspected source of UTI with urinalysis showing 2 plus leukoesterase, 20-50 WBC and 3 plus bacteria. In the ER order was written to change garcia, cultures were drawn. He was given Fluid bolus and placed on maintenance fluids and given Rocephin empirically. [facility] Disclaimer: The information contained in this section may have been updated after the patient was seen, as this information can be updated by other users. Medical History (Updated 04/10/22 @ 21:03 by Rebekah Vzaquez RN) COVID Dementia Indwelling Garcia catheter present Stroke Social History Smoking Status: Never smoker alcohol intake: never substance use type: denies use current occupational status: disabled Travel in the last 8 weeks: None household members: caregiver housing: assisted living facility caffeine: Yes Review of Systems Review of Systems Review of systems:: unable to obtain Meds Home Medications and Allergies Home Medications Medication Instructions Recorded Confirmed Type aspirin 81 mg tablet,delayed 81 mg PO DAILY Blood thinner/CVA 09/03/18 08/16/21 History release bisacodyl 5 mg tablet,delayed 10 mg PO HSP PRN Constipation 07/23/21 08/16/21 History release (Dulcolax (bisacodyl)) bupropion HCl 75 mg tablet 75 mg PO BID Depression 07/23/21 08/16/21 History guaifenesin 400 mg tablet 400 mg PO BID Congestion/chest 07/23/21 08/16/21 History congesti sennosides 8.6 mg capsule (senna) 8.6 mg PO DAILY constipation 07/23/21 08/16/21 History metoclopramide HCl 10 mg tablet 10 mg PO QID acid reflux 08/16/21 08/16/21 History pantoprazole 40 mg tablet,delayed 40 mg PO BID GI Bleed 08/16/21 08/16/21 History release pravastatin 40 mg tablet 40 mg PO HS Cholesterol 08/16/21 08/16/21 History hydrocodone 5 mg-acetaminophen 325 1 tab PO Q6H PRN pain #120 tabs 12/09/21 Rx mg tablet sulfamethoxazole 800 1 tab PO BID #20 tabs 12/23/21 Rx mg-trimethoprim 160 mg tablet (Bactrim DS) New Prescriptions to Start Prescriptions: Allergies Allergy/AdvReac Type Severity Reaction Status Date / Time No Known Allergies Allergy Verified 08/16/21 11:05 Exam Data for Last 24 hours Vital signs and Labs for Last 24 Hours: Temp Pulse Resp BP Pulse Ox 100.7 F H 139 H 22 119/66 97 04/10/22 15:03 04/10/22 19:31 04/10/22 15:03 04/10/22 19:31 04/10/22 19:31 Laboratory Results - last 24 hr 04/10/22 15:21: Magnesium 1.9, Troponin I 0.20 H, TSH 1.47 04/10/22 15:21: Lactate 4.3 H 04/10/22 15:21: WBC 28.6 H*, RBC 4.92, Hgb 14.6, Hct 44.5, MCV 90.4, MCH 29.7, MCHC 32.8, RDW 14.0, Plt Count 387, MPV 7.3 L, Neut % (Auto) 89.9 H, Lymph % (Auto) 4.2 L, Verm[place] % (Auto) 5.4, Eos % (Auto) 0.2, Baso % (Auto) 0.4, Neut # (Auto) 25.7 H, Lymph # (Auto) 1.2, Vermilion # (Auto) 1.5 H, Eos # (Auto) 0.1, Baso # (Auto) 0.1, Total Counted 100, Neutrophils % (Manual) 87 H, Band Neutrophils % 1.0, Lymphocytes % (Manual) 10, Monocytes % (Manual) 1 L, Eosinophils % (Manual) 1, Platelet Estimate Normal, RBC Morphology Normal 04/10/22 15:21: Sodium 143, Potassium 4.2, Chloride 108 H, Carbon Dioxide 22, Anion Gap 17.2 H, BUN 23 H, Creatinine 1.70 H, Estimated Creat Clear 50, Estimated GFR 40 L, Est GFR ( Amer) 49 L, Glucose 1
--- NOTE | 2022-04-10 21:01 | PC.NURSE ---
Pt arrived to floor via stretcher @ 2058.
--- NOTE | 2022-04-10 21:28 | PC.NURSE ---
SUSANA MOTTLER OPERATOR CONTACTED DUE TO PT BREATHING 40-50 TIMES PER MINUET AND BP BEING IN THE 90'S/40'S. LUNG SOUNDS ARE WET WITH CRACKLES IN THE LEFT UPPER LOBE. SUSNAA STATED SHE WAS GOING TO REPEAT THE CHEST XRAY DUE TO PT'S CHANGE IN LUNG SOUNDS ARE RESPIRATION RATE. FLUID BOLUS STARTED AT THIS TIME WELL.
--- NOTE | 2022-04-10 21:30 | XR_ITS ---
PROCEDURE INFORMATION: Exam: XR Chest Exam date and time: 04/10/2022 10:13 PM Age: 67 years old Clinical indication: Shortness of breath; Additional info: Tachypnea, shortness of air TECHNIQUE: Imaging protocol: Radiologic exam of the chest. Views: 1 view. COMPARISON: CR XR CHEST PORTABLE 04/10/2022 4:40 PM FINDINGS: Lungs: There has developed mild right basilar atelectasis. Lungs are otherwise clear. Pleural spaces: Unremarkable. No pleural effusion. No pneumothorax. Heart/Mediastinum: Unremarkable. No cardiomegaly. Bones/joints: Unremarkable. IMPRESSION: Mild right basilar atelectasis. Otherwise unremarkable chest.
[2022-04-10 21:40] LABS: Lactic Acid Follow Up (RFLX 1) 4.4 mmol/L (0.7-2.1)
[2022-04-10 21:41] LABS: Reflex Lactic (2 hrs) Add Lactic Reflex
--- NOTE | 2022-04-10 21:41 | PC.NURSE ---
JIMMY MEZA NOTIFED THAT PT HAS A CRITICAL LACTIC OF 4.4. NO NEW ORDERS.
--- NOTE | 2022-04-10 22:38 | HMH.EDAMS ---
Discharge Plan Disposition Patient Disposition: Admitted As Inpatient Clinical Impressions Clinical Impression: UTI (urinary tract infection) Discharge ED Provider: Missael Andrew Altered Mental Status HPI General Chief Complaint: Altered Mental Status Stated Complaint: AMS Time Seen by Provider: 04/10/22 15:45 Mode of Arrival: EMS Source of Information: EMS Limitations: No Limitations Description of Symptoms (Recalled from ER Triage Doc. by RN): EMS STATES PT HAS HAD INCREASED ALTERED MENTAL STATUS TODAY AND STARTED RUNNING A FEVER YESTERDAY History of Present Illness HPI narrative: Patient transferred from outside living facility due to concerns for worsening altered mental status. Patient does have altered mental status at baseline, but yesterday started having a fever and became more agitated at his facility today. He has a chronic indwelling Alberts catheter MD complaint: altered mental status Related Data Home Medications Medication Instructions Recorded Confirmed aspirin 81 mg tablet,delayed 81 mg PO DAILY Blood thinner/CVA 09/03/18 08/16/21 release bisacodyl 5 mg tablet,delayed 10 mg PO HSP PRN Constipation 07/23/21 08/16/21 release (Dulcolax (bisacodyl)) bupropion HCl 75 mg tablet 75 mg PO BID Depression 07/23/21 08/16/21 guaifenesin 400 mg tablet 400 mg PO BID Congestion/chest 07/23/21 08/16/21 congesti sennosides 8.6 mg capsule (senna) 8.6 mg PO DAILY constipation 07/23/21 08/16/21 metoclopramide HCl 10 mg tablet 10 mg PO QID acid reflux 08/16/21 08/16/21 pantoprazole 40 mg tablet,delayed 40 mg PO BID GI Bleed 08/16/21 08/16/21 release pravastatin 40 mg tablet 40 mg PO HS Cholesterol 08/16/21 08/16/21 Previous Rx's Medication Instructions Recorded hydrocodone 5 mg-acetaminophen 325 1 tab PO Q6H PRN pain #120 tabs 12/09/21 mg tablet sulfamethoxazole 800 1 tab PO BID #20 tabs 12/23/21 mg-trimethoprim 160 mg tablet (Bactrim DS) Allergies Allergy/AdvReac Type Severity Reaction Status Date / Time No Known Allergies Allergy Verified 08/16/21 11:05 [facility] Disclaimer: The information contained in this section may have been updated after the patient was seen, as this information can be updated by other users. Medical History (Updated 04/10/22 @ 21:03 by Rebekah Vazquez RN) COVID Dementia Indwelling Alberts catheter present Stroke Social History Smoking Status: Never smoker alcohol intake: never substance use type: denies use current occupational status: disabled Travel in the last 8 weeks: None household members: caregiver housing: assisted living facility caffeine: Yes ROS Obtained: Yes unobtainable due to mental condition Physical Exam General General appearance: alert and obtunded Head Head exam: atraumatic and normocephalic Eye Eye exam: Present normal appearance and EOMI Respiratory Respiratory exam: Present normal lung sounds bilaterally Cardiovascular Cardiovascular exam: Present regular rate and normal rhythm Abdominal Exam Abdominal exam: Present soft Neurological Exam Neurological exam: Present other (Disoriented, agitated, altered beyond baseline) Medical Decision Making Sravan Inquiry Pt receiving controlled substance: No Vital Signs: 04/10/22 15:03 04/10/22 16:02 04/10/22 17:44 Temperature 100.7 F H Temperature Source Oral Pulse Rate 67 142 H Pulse Rate [Right Radial] 131 H Respiratory Rate 22 Blood Pressure 133/83 159/81 H Blood Pressure [Left Arm] 156/108 H Blood Pressure Mean 100 106 Blood Pressure Mean [Left Arm] 124 Blood Pressure Source [Left Arm] Automatic Cuff Blood Pressure Position [Left Arm] Sitting 02 Sat by Pulse Oximetry 96 98 96 Oxygen Delivery Method Room Air 04/10/22 18:02 04/10/22 18:32 04/10/22 19:31 Temperature Temperature Source Pulse Rate 139 H 140 H 139 H Pulse Rate [Right Radial] Respiratory Rate
[2022-04-10 23:10] LABS: Lactic Acid Follow up (RFLX 2) 3.4 mmol/L (0.7-2.1)
[2022-04-10 23:36] LABS: Troponin I 0.27 ng/ml (0.00-0.034)
[2022-04-11] VITALS (18 sets, daily range): BP systolic 101–176; BP diastolic 53–86; PULSE 109–140; RESP 28–40; TEMP 37.2–38.6; O2SAT 93–99; BMI 20.8
[2022-04-11 00:05] LABS: VBG Base Excess -8.1 mmol/L (-2.4-2.3); VBG HCO3 17.1 mmol/L (23-30); VBG Oxygen Saturation 50.3 % (50-70); VBG PCO2 29.9 mmol/L (35-51); VBG PH 7.38 mmol/L (7.31-7.41); VBG PO2 26.3 mmol/L (28-40)
[2022-04-11 00:15] LABS: ABG Base Excess -9.2 mmol/L (-2.4-2.3); ABG HCO3 14.3 mmhg (22.0-26.0); ABG Oxygen Saturation 98 % (90-100); ABG PH 7.48 mmol/L (7.35-7.45); ABG PO2 89.2 mmhg (80-100)
[2022-04-11 00:16] LABS: ABG PCO2 19.8 mmhg (35.0-45.0); Oxygen 3.5 %; Source Right Femoral
--- NOTE | 2022-04-11 00:24 | PC.NURSE ---
TERRITORY SALES EXECUTIVE CALLED AND STATED PT'S HEART RATE WAS SUSTAINING IN THE 140'S AND HAD BEEN IN THE 150'S. THIS RN WENT IN ROOM AND CALLED DOWEL INSERTING MACHINE OPERATOR SUSANA. DOWEL INSERTING MACHINE OPERATOR SUSANA CAME TO BEDSIDE TO ASSESS PT. LABS, CHEST X RAY AND ABG ORDERED AND TAKEN. BONNY RED CALLED ON PT. PT CONTINUES TO BREATH 40-50TIMES PER MINUTE. LUNG SOUNDS ARE WET. PT HAS RHONCHI IN BOTH LUNGS. BREATHING IF FAST AND LABORED. TOLERATING 3.5L NASAL CANNULA. 0.5MH OF ATIVAN HAS NOT CHANGED PT'S ANXIETY VERY MUCH.
[2022-04-11 00:31] LABS: PTT Heparin (inpatient only) 24.7 Seconds (23.6-34.0)
[2022-04-11 00:33] LABS: D-Dimer 2.78 ug/mL (0.0-0.5)
[2022-04-11 00:35] LABS: NT Pro Brain Natriuretic Pep. 3720 pg/mL (0-125)
--- NOTE | 2022-04-11 00:57 | PC.NURSE ---
Pt unable to answer admission questions at this time. Admission done to best of ability.
--- NOTE | 2022-04-11 01:16 | PC.NURSE ---
Care assumed by this nurse at 0932
--- NOTE | 2022-04-11 02:22 | PC.NURSE ---
Spoke with CODI Noriega at [facility]. States he will fax over pt information at this time.
[2022-04-11 03:55] LABS: Chloride 116 mmol/L (98-107); Potassium 4.1 mmoL/L (3.5-5.1); Sodium 146 mmol/L (136-145)
[2022-04-11 03:58] LABS: Blood Urea Nitrogen 32 mg/dl (9-20); Creatinine Clearance Estimated 33 mL/min (50-200); Estimated Glomerular Filt Rate 36 ml/min (>60); GFR (African American) 43 ML/MIN (>60)
[2022-04-11 03:59] LABS: Anion Gap 14.1 mEq/L (5-15); Carbon Dioxide 20 mmol/L (22.0-30.0); Glucose 133 mg/dl (74-100)
--- NOTE | 2022-04-11 05:42 | PC.NURSE ---
Pt remains tachycardic. Charlotte LANDSCAPER HELPER aware. BP stable. Pt has been febrile this shift. Continues to be tachypneic. Medication administered per jun. F/C draining draining to bedside with cloudy, octaviano urine. Small BM this shift. Bed safety and mittens in place.
--- NOTE | 2022-04-11 05:51 | CA_ITS ---
APPROVED REPORT EXAM: Comprehensive 2D, Doppler, and color-flow Echocardiogram Network Admin: SHARLENE Santiago, RVS Ht: 5 ft 8 in Wt: 135lbs BSA: 1.73 HR: 129 bpm BP: 101/74 mmHg Rhythm: Tachycardia Indications: Tachycardia, SOA, Dementia, Hx-Covid Echo Enhancing Agent Comments: Technically limited due to tachycardia unaided by combative arm flailing patient. 2D Dimensions IVSd 1.11 cm LVEF (Visual) 78.70 % PWd 1.05 cm LA Volume 37.20 mL LVDd 4.26 cm LA Volume Index 21.50 mL/m2 (M/F) 16-34 LVDs 2.26 cm Aortic Root 2.85 cm Left Atrium 2.65 cm LVOT 1.86 cm (M/F) 1.5-2.5 M-Mode Dimensions TAPSE 1.84 (<1.7) LV Diastology E Decel Time 153.00 (160-240 msec) E/A Ratio 0.74 MED E' 13.60 (< 7 cm/sec) MED A' 5.40 cm/s E'/MED E' Ratio 6.00 (>14) LAT E' 8.70 (<10 cm/sec) LAT A' 15.90 cm/s E/LAT E' Ratio 9.38 (>14) Aortic Valve LVOT Max 130.00 (70-110 cm/s) LVOT VTI 20.29 cm AoV Peak Nolberto. 142.00 (50-130 cm/s) AO Peak GR. 8.00 mmHg AO Mean GR. 4.00 (<5 mmHg) AO VTI 20.35 (18-25 cm) EDUARDO (VTI) 2.71 (2.5-4.5 cm2) Mitral Valve MV E Max Nolberto. 82.00 (40-130 cm/s) MV A Velocity 110.00 (40-130 cm/s) E/A Ratio 0.74 MV Decel. Time 153.00 (160-240 ms) MV PHT 45.00 ms Tricuspid Valve TR P. Velocity 252.00 cm/s Left Ventricle Left atrium is mildly enlarged, left ventricle is normal size, hyperdynamic left ventricular systolic function, estimated ejection fraction over 65% with no regional wall motion abnormality, diastolic parameters are inconclusive. Right Ventricle Right atrium and right ventricle are normal size and contractility. Aortic Valve Aortic valve is minimally thickened and fibrosed without aortic stenosis aortic insufficiency. Mitral Valve Mitral valve grossly normal, there is trace mitral regurgitation. Tricuspid Valve Tricuspid grossly normal, there is trace tricuspid regurgitation, tricuspid regurgitation jet velocity is inadequate for calculation of the right ventricular systolic pressure. Pulmonic Valve Pulmonic valve is poorly visualized. Great Vessels Aortic root is normal size. Inferior vena cava is poorly visualized. Pericardium No significant pericardial effusion noted. Conclusion 1. Normal left ventricular size, estimated ejection fraction over 65% with no regional wall motion abnormality, diastolic parameters are inconclusive. 2. Trace mitral and tricuspid regurgitation. 3. No significant pericardial effusion noted. 4. Inferior vena cava is poorly visualized. Electronically signed by : Eliezer Olivares MD 04/18/2022 07:35:05
[2022-04-11 06:23] LABS: ABG Base Excess -7.3 mmol/L (-2.4-2.3); ABG HCO3 16.3 mmhg (22.0-26.0); ABG Oxygen Saturation 96 % (90-100); ABG PCO2 22.7 mmhg (35.0-45.0); ABG PH 7.47 mmol/L (7.35-7.45); ABG PO2 76.2 mmhg (80-100)
[2022-04-11 06:24] LABS: Allen's Test Acceptable; Oxygen 2L %; Source Left Brachial
[2022-04-11 07:27] LABS: Basophils # 0.1 K/mm3 (0-0.2); Basophils % 0.4 % (0.1-2.0); Eosinophils # 0.1 K/mm3 (0.0-0.4); Eosinophils % 0.4 % (0.1-12.0); Lymphocytes # 1.1 K/mm3 (0.7-4.5); Lymphocytes % 3.2 % (10-50); Mean Corpuscular HGB Conc 31.2 g/dL (31.8-35.4); Mean Corpuscular Hemoglobin 29.5 pg (27.0-31.2); Mean Corpuscular Volume 94.4 fl (80-94); Mean Platelet Volume 7.3 fl (7.4-10.4); Monocytes # 1.3 K/mm3 (0.1-1.0); Monocytes % 3.6 % (1.7-9.3); Neutrophils # 32.6 K/mm3 (1.8-7.8); Neutrophils % 92.5 % (37.0-80.0); Platelet Count 362 K/mm3 (142-424); Red Blood Count 4.45 M/mm3 (4.60-6.20); Red Cell Distribution Width 13.9 % (11.5-17.5); White Blood Count 35.3 K/mm3 (4.8-10.8)
[2022-04-11 07:35] LABS: Alanine Aminotransferase 37 U/L (12-78); Albumin Level 3.9 g/dl (3.5-5.0); Albumin/Globulin Ratio 1.3 (1.1-1.8); Alkaline Phosphatase 97 U/L (38-126); Anion Gap 17.6 mEq/L (5-15); Aspartate Amino Transferase 64 U/L (17-59); Bilirubin,Total 0.8 mg/dl (0.2-1.3); Blood Urea Nitrogen 32 mg/dl (9-20); Calcium 9.2 mg/dl (8.4-10.2); Carbon Dioxide 20 mmol/L (22.0-30.0); Chloride 118 mmol/L (98-107); Creatinine Clearance Estimated 28 mL/min (50-200); Estimated Glomerular Filt Rate 29 ml/min (>60); GFR (African American) 34 ML/MIN (>60); Globulin 2.9 g/dL (1.3-3.2); Glucose 135 mg/dl (74-100); MANUAL DIFFERENTIAL MANUAL DIFFERENTIAL (MANUAL DIFF); Potassium 4.6 mmoL/L (3.5-5.1); Total Protein,Serum 6.8 g/dl (6.3-8.2)
[2022-04-11 07:36] LABS: Hemoglobin 13.1 g/dL (14.1-18.0)
[2022-04-11 07:37] LABS: PTT Heparin (inpatient only) 54.7 Seconds (23.6-34.0)
[2022-04-11 07:38] LABS: Sodium 151 mmol/L (136-145)
[2022-04-11 07:44] LABS: NT Pro Brain Natriuretic Pep. 4880 pg/mL (0-125)
[2022-04-11 07:52] LABS: Procalcitonin 1.03 ng/mL (0.0-2.0)
[2022-04-11 07:54] LABS: Eosinophils % 1 % (0-3); Lymphocytes % 3 % (10-50); Monocytes % 4 % (2-9); Neutrophils % 92 % (42-76); Platelet Estimate Normal; Total Cells Counted 100
[2022-04-11 07:55] LABS: RBC Morphology Normal
--- NOTE | 2022-04-11 08:05 | EXP.PHA.CONS ---
Pharmacy Consult Date: 04/11/22 Time: 08:05 Referring provider: DR. PARIKH Reason for Consult:: VANCOMYCIN DOSING Allergies Allergy/AdvReac Type Severity Reaction Status Date / Time No Known Allergies Allergy Verified 08/16/21 11:05 Home Medications Medication Instructions Recorded Confirmed Type aspirin 81 mg tablet,delayed 81 mg PO DAILY Blood thinner/CVA 09/03/18 04/11/22 History release acetaminophen 500 mg tablet 1,000 mg PO Q6 PRN Mild Pain 04/11/22 04/11/22 History (Scale Score 1-4) finasteride 5 mg tablet 5 mg PO DAILY enlarged prostate 04/11/22 04/11/22 History lansoprazole 15 mg capsule,delayed 15 mg PO DAILY ACID REFLUX 04/11/22 04/11/22 History release simvastatin 20 mg tablet 20 mg PO DAILY Cholesterol 04/11/22 04/11/22 History tuberculin PPD 5 tub. unit/0.1 mL 0.1 tb unit intradermal 04/11/22 04/11/22 History intradermal injection solution DIRECTED TB TEST (Tubersol) New Prescriptions to Start Prescriptions: Height: 1.73 m Weight: 62.414 kg Laboratory Results:: Laboratory Results - last 24 hr 04/10/22 00:00: VBG pH 7.38, VBG pCO2 29.9 L, VBG pO2 26.3 L, VBG HCO3 17.1 L, VBG Total CO2 18.0 L, VBG O2 Saturation 50.3, VBG Base Excess -8.1 L 04/10/22 15:21: Magnesium 1.9, Troponin I 0.20 H, TSH 1.47 04/10/22 15:21: Lactate 4.3 H 04/10/22 15:21: WBC 28.6 H*, RBC 4.92, Hgb 14.6, Hct 44.5, MCV 90.4, MCH 29.7, MCHC 32.8, RDW 14.0, Plt Count 387, MPV 7.3 L, Neut % (Auto) 89.9 H, Lymph % (Auto) 4.2 L, [place] % (Auto) 5.4, Eos % (Auto) 0.2, Baso % (Auto) 0.4, Neut # (Auto) 25.7 H, Lymph # (Auto) 1.2, [place] # (Auto) 1.5 H, Eos # (Auto) 0.1, Baso # (Auto) 0.1, Total Counted 100, Neutrophils % (Manual) 87 H, Band Neutrophils % 1.0, Lymphocytes % (Manual) 10, Monocytes % (Manual) 1 L, Eosinophils % (Manual) 1, Platelet Estimate Normal, RBC Morphology Normal 04/10/22 15:21: Sodium 143, Potassium 4.2, Chloride 108 H, Carbon Dioxide 22, Anion Gap 17.2 H, BUN 23 H, Creatinine 1.70 H, Estimated Creat Clear 50, Estimated GFR 40 L, Est GFR ( Amer) 49 L, Glucose 192 H, Calcium 9.8, Total Bilirubin 0.5, AST 31, ALT 30, Alkaline Phosphatase 120, Total Protein 7.7, Albumin 4.3, Globulin 3.4 H, Albumin/Globulin Ratio 1.3 04/10/22 15:21: SARS-CoV-2 (PCR) Not detected, Influenza A Untype (PCR) Not detected, Influenza Type B (PCR) Not detected 04/10/22 16:45: Urine Color Yellow, Urine Appearance Cloudy, Urine pH 8.5, Ur Specific [place] <= 1.005, Urine Protein 3+, Urine Glucose (UA) Negative, Urine Ketones Negative, Urine Blood 1+, Urine Nitrate Negative, Urine Bilirubin Negative, Urine Urobilinogen 0.2, Ur Leukocyte Esterase 2+ A, Urine RBC 5-10, Urine WBC 20-50, Triple Phos Crystals 1+, Amorphous Sediment Trace, Urine Bacteria 3+ 04/10/22 18:46: Troponin I 0.25 H 04/10/22 20:30: Lactate 4.4 H 04/10/22 22:50: Troponin I 0.27 H 04/10/22 22:50: Lactate 3.4 H 04/11/22 00:00: D-Dimer 2.78 H 04/11/22 00:00: NT-Pro-B Natriuret Pep 3720 H 04/11/22 00:00: APTT 24.7 04/11/22 00:14: Specimen Source Right femoral, O2 % 3.5, ABG pH 7.48 H, ABG pCO2 19.8 L, ABG pO2 89.2, ABG HCO3 14.3 L, ABG Total CO2 15.0 L, ABG O2 Saturation 98, ABG Base Excess -9.2 L 04/11/22 03:40: Sodium 146 H, Potassium 4.1, Chloride 116 H, Carbon Dioxide 20 L, Anion Gap 14.1, BUN 32 H D, Creatinine 1.90 H, Estimated Creat Clear 33, Estimated GFR 36 L, Est GFR ( Amer) 43 L, Glucose 133 H D, Calcium 9.0 04/11/22 06:00: Specimen Source Left brachial, O2 % 2l, ABG pH 7.47 H, ABG pCO2 22.7 L, ABG pO2 76.2 L, ABG HCO3 16.3 L, ABG Total CO2 17.0 L, ABG O2 Saturation 96, ABG Base Excess -7.3 L, Eb Test Acceptable 04/11/22 07:10: APTT 54.7 H* 04/11/22 07:10: Sodium 151 H*, Potassium 4.6, Chloride 118 H, Carbon Dioxide 20 L, Anion Gap 17.6 H, BUN 32 H, Creatinine 2.30 H D, Estimated Creat Clear 28, Estimated GFR 29 L, Est GFR ( Amer) 34 L D, Glucose 135 H, Calcium 9.2, Total Bilirubin 0.8, AST 64 H D, ALT 37, Alkaline Phosphatase 97, NT-Pro-B Natriuret Pep 5573
--- NOTE | 2022-04-11 08:08 | PC.NURSE ---
contacted Harvey from pharmacy with PTT result, Harvey stated to leave heparin at current infusion rate (14 mL/hr), and he will put in a repeat PTT draw
--- NOTE | 2022-04-11 08:59 | SW/DCPLANNER ---
This patient currently resides at [facility] level of care. I will continue to follow up with Debra from [facility] until patient is medically stable for discharge.
--- NOTE | 2022-04-11 10:41 | HMH.PHAHEP ---
Documented by User: Harvey Andrew PHARMD 04/13/22 09:13 [facility] Pharmacy Heparin Dosing Demographic Data Admission date:: 04/11/22 Date: 04/11/22 Time: 10:46 Allergies Allergy/AdvReac Type Severity Reaction Status Date / Time No Known Allergies Allergy Verified 08/16/21 11:05 Height: 1.73 m Weight: 62.4 kg Indication Medication therapy:: Heparin Current Active Problems (Updated 04/11/22 @ 16:30 by Nkechi Morales MD) Hypernatremia (Acute) Respiratory alkalosis (Acute) Pulmonary embolism (Acute) Encephalopathy (Acute) Sepsis (Acute) Dementia (Acute) CVA (cerebral vascular accident) (Acute) DINO (acute kidney injury) (Acute) UTI (urinary tract infection) (Acute) CVA?: No Bleeding problem?: No Kidney disease?: Yes SD?: No Desired PTT range:: 50-75 seconds Comments:: POSSIBLE PE Labs Anticoagulation Lab Results:: 04/10/22 04/11/22 15:21 07:10 Hgb 14.6 13.1 L D Hct 44.5 42.0 Plt Count 387 362 Monitoring Dose Monitor 1: Date: 04/11/22 Time: 00:00 PTT Result:: 24.7 Infusion Rate:: STARTED HEPARIN DRIP 14 ML/HR (700 UNITS/HR) OVERNIGHT. BOLUS DOSE OF HEPARIN 3500 UNITS GIVEN OVERNIGHT. Dose Monitor 2: Date: 04/11/22 Time: 07:00 PTT Result:: 54.7 Infusion Rate:: CONTINUED WITH HEPARIN 14 ML/HR (700 UNITS/HR) Core Measures Is INR > or = 2 at discharge?: No Most Recent Labs:: Laboratory Results - last 24 hr 04/10/22 00:00: VBG pH 7.38, VBG pCO2 29.9 L, VBG pO2 26.3 L, VBG HCO3 17.1 L, VBG Total CO2 18.0 L, VBG O2 Saturation 50.3, VBG Base Excess -8.1 L 04/10/22 15:21: Magnesium 1.9, Troponin I 0.20 H, TSH 1.47 04/10/22 15:21: Lactate 4.3 H 04/10/22 15:21: WBC 28.6 H*, RBC 4.92, Hgb 14.6, Hct 44.5, MCV 90.4, MCH 29.7, MCHC 32.8, RDW 14.0, Plt Count 387, MPV 7.3 L, Neut % (Auto) 89.9 H, Lymph % (Auto) 4.2 L, [place] % (Auto) 5.4, Eos % (Auto) 0.2, Baso % (Auto) 0.4, Neut # (Auto) 25.7 H, Lymph # (Auto) 1.2, [place] # (Auto) 1.5 H, Eos # (Auto) 0.1, Baso # (Auto) 0.1, Total Counted 100, Neutrophils % (Manual) 87 H, Band Neutrophils % 1.0, Lymphocytes % (Manual) 10, Monocytes % (Manual) 1 L, Eosinophils % (Manual) 1, Platelet Estimate Normal, RBC Morphology Normal 04/10/22 15:21: Sodium 143, Potassium 4.2, Chloride 108 H, Carbon Dioxide 22, Anion Gap 17.2 H, BUN 23 H, Creatinine 1.70 H, Estimated Creat Clear 50, Estimated GFR 40 L, Est GFR ( Amer) 49 L, Glucose 192 H, Calcium 9.8, Total Bilirubin 0.5, AST 31, ALT 30, Alkaline Phosphatase 120, Total Protein 7.7, Albumin 4.3, Globulin 3.4 H, Albumin/Globulin Ratio 1.3 04/10/22 15:21: SARS-CoV-2 (PCR) Not detected, Influenza A Untype (PCR) Not detected, Influenza Type B (PCR) Not detected 04/10/22 16:45: Urine Color Yellow, Urine Appearance Cloudy, Urine pH 8.5, Ur Specific [place] <= 1.005, Urine Protein 3+, Urine Glucose (UA) Negative, Urine Ketones Negative, Urine Blood 1+, Urine Nitrate Negative, Urine Bilirubin Negative, Urine Urobilinogen 0.2, Ur Leukocyte Esterase 2+ A, Urine RBC 5-10, Urine WBC 20-50, Triple Phos Crystals 1+, Amorphous Sediment Trace, Urine Bacteria 3+ 04/10/22 18:46: Troponin I 0.25 H 04/10/22 20:30: Lactate 4.4 H 04/10/22 22:50: Troponin I 0.27 H 04/10/22 22:50: Lactate 3.4 H 04/11/22 00:00: D-Dimer 2.78 H 04/11/22 00:00: NT-Pro-B Natriuret Pep 3720 H 04/11/22 00:00: APTT 24.7 04/11/22 00:14: Specimen Source Right femoral, O2 % 3.5, ABG pH 7.48 H, ABG pCO2 19.8 L, ABG pO2 89.2, ABG HCO3 14.3 L, ABG Total CO2 15.0 L, ABG O2 Saturation 98, ABG Base Excess -9.2 L 04/11/22 03:40: Sodium 146 H, Potassium 4.1, Chloride 116 H, Carbon Dioxide 20 L, Anion Gap 14.1, BUN 32 H D, Creatinine 1.90 H, Estimated Creat Clear 33, Estimated GFR 36 L, Est GFR ( Amer) 43 L, Glucose 133 H D, Calcium 9.0 04/11/22 06:00: Specimen Source Left brachial, O2 % 2l, ABG pH 7.47 H, ABG pCO2 22.7 L, ABG pO2 76.2 L, ABG HCO3 16.3 L, ABG Total CO2 17.0 L, ABG O2 Saturation 96, ABG Base Excess -7.3 L, Eb Test Ac
[2022-04-11 11:15] LABS: Sodium 148 mmol/L (136-145)
[2022-04-11 11:22] LABS: PTT Heparin (inpatient only) 51.5 Seconds (23.6-34.0)
[2022-04-11 11:23] LABS: Reflex Lactic Add Lactic Reflex
--- NOTE | 2022-04-11 12:14 | PC.NURSE ---
Harvey from pharmacy stated to leave heparin gtt at 14 mL/hr
[2022-04-11 12:23] LABS: Lactic Acid Follow Up (RFLX 1) 1.5 mmol/L (0.7-2.1)
--- NOTE | 2022-04-11 13:30 | P.CONPHA_ITS ---
Pharmacy Intervention Comments: MEDICATION RECONCILIATION COMPLETED ON PATIENT USING MAR FROM [facility]. -WILLIE OLSEN, NEYD
--- NOTE | 2022-04-11 13:30 | HMH.PHAINT1 ---
Pharmacy Intervention Comments: MEDICATION RECONCILIATION COMPLETED ON PATIENT USING MAR FROM [facility]. -WILLIE OLSEN, NEYD
[2022-04-11 15:31] LABS: Sodium 148 mmol/L (136-145)
--- NOTE | 2022-04-11 16:15 | EXP.ACUTE.PN ---
Subjective *Date: 04/11/22 *Time: 16:15 Interval history: Patient remains agitated, unable to provide history. Medical Exam Vital signs and Labs for Last 24 Hours: Vital Signs Temp Pulse Pulse Resp BP BP Pulse Ox 04/11/22 15:35 98.9 F 04/11/22 08:00 131 H 98 04/11/22 14:00 127 H 28 H 137/70 94 L 04/11/22 12:00 123 H 28 H 151/68 H 97 04/11/22 10:00 126 H 32 H 154/82 H 96 04/11/22 11:35 99.6 F 04/11/22 08:00 131 H 28 H 134/69 98 04/11/22 04:00 130 H 04/11/22 08:00 99.2 F 04/11/22 06:00 130 H 32 H 153/81 H 93 L 04/11/22 04:05 99.1 F 04/11/22 04:00 131 H 28 H 116/63 96 04/10/22 21:25 110 H 04/11/22 00:00 140 H 04/11/22 02:00 100.2 F H 119 H 28 H 141/83 H 99 04/11/22 00:49 109 H 32 H 125/81 95 04/11/22 00:00 101.1 F H 140 H 40 H 101/74 L 97 04/10/22 21:39 98.3 F 133 H 40 H 96/68 L 98 04/10/22 20:59 98.9 F 71 16 136/75 04/10/22 19:31 139 H 119/66 97 04/10/22 18:32 140 H 101/74 L 98 04/10/22 18:02 139 H 140/111 H 98 04/10/22 17:44 142 H 159/81 H 96 Intake and Output 04/11/22 04/11/22 04/11/22 07:59 15:59 23:59 Intake Total 1688 / 1688 0 / 1688 Output Total 275 / 375 100 / 375 Balance 1413 / 1313 -100 1313 Intake: Intake, Oral Amount 0 / 0 Intake, Total IV Amount 1688 / 1688 0.9 % Sodium Chloride 1,000 ml 1293 / 1293 @ 125 mls/hr IV .Q8H [facility] Rx#: [id number] Cefepime HCl 2 gm In 0.9 % 100 / 100 Sodium Chloride 100 ml @ 200 mls/hr IV Q8H [facility] Rx#:[id number] Heparin Sodium,Porcine/D5w 500 45 / 45 ml @ 700 UNITS/HR 14 mls/hr IV .Q25H [facility] Rx#:[id number] Vancomycin HCl 1,000 mg In 0.9 250 / 250 % Sodium Chloride 250 ml @ 125 mls/hr IV Q24H [facility] Rx#:[id number] Output: Output, Urine Amount 0 / 0 Output, Urine Amount (Catheter) 275 / 375 100 / 375 Alberts 275 / 375 100 / 375 Other: Number of Unmeasured Voids 0 0 Weight 62.414 kg 62.4 kg Patient Weight 04/11/22 23:59 Weight 62.4 kg Laboratory Results - last 24 hr 04/10/22 00:00: VBG pH 7.38, VBG pCO2 29.9 L, VBG pO2 26.3 L, VBG HCO3 17.1 L, VBG Total CO2 18.0 L, VBG O2 Saturation 50.3, VBG Base Excess -8.1 L 04/10/22 15:21: Magnesium 1.9, Troponin I 0.20 H, TSH 1.47 04/10/22 15:21: SARS-CoV-2 (PCR) Not detected, Influenza A Untype (PCR) Not detected, Influenza Type B (PCR) Not detected 04/10/22 16:45: Urine Color Yellow, Urine Appearance Cloudy, Urine pH 8.5, Ur Specific [place] <= 1.005, Urine Protein 3+, Urine Glucose (UA) Negative, Urine Ketones Negative, Urine Blood 1+, Urine Nitrate Negative, Urine Bilirubin Negative, Urine Urobilinogen 0.2, Ur Leukocyte Esterase 2+ A, Urine RBC 5-10, Urine WBC 20-50, Triple Phos Crystals 1+, Amorphous Sediment Trace, Urine Bacteria 3+ 04/10/22 18:46: Troponin I 0.25 H 04/10/22 20:30: Lactate 4.4 H 04/10/22 22:50: Troponin I 0.27 H 04/10/22 22:50: Lactate 3.4 H 04/11/22 00:00: D-Dimer 2.78 H 04/11/22 00:00: NT-Pro-B Natriuret Pep 3720 H 04/11/22 00:00: APTT 24.7 04/11/22 00:14: Specimen Source Right femoral, O2 % 3.5, ABG pH 7.48 H, ABG pCO2 19.8 L, ABG pO2 89.2, ABG HCO3 14.3 L, ABG Total CO2 15.0 L, ABG O2 Saturation 98, ABG Base Excess -9.2 L 04/11/22 03:40: Sodium 146 H, Potassium 4.1, Chloride 116 H, Carbon Dioxide 20 L, Anion Gap 14.1, BUN 32 H D, Creatinine 1.90 H, Estimated Creat Clear 33, Estimated GFR 36 L, Est GFR ( Amer) 43 L, Glucose 133 H D, Calcium 9.0 04/11/22 06:00: Specimen Source Left brachial, O2 % 2l, ABG pH 7.47 H, ABG pCO2 22.7 L, ABG pO2 76.2 L, ABG HCO3 16.3 L, ABG Total CO2 17.0 L, ABG O2 Saturation 96, ABG Base Excess -7.3 L, Eb Test Acceptable 04/11/22 07:10: APTT 54.7 H* 04/11/22 07:10: Sodium 151 H*, Potassium 4.6, Chloride 118 H, Carbon Dioxide 20 L, Anion Gap 17.6 H, BUN 32 H, Creatinine 2.30 H D, Estimated Creat Clear 28,
[2022-04-11 18:03] LABS: PTT Heparin (inpatient only) 47.7 Seconds (23.6-34.0)
--- NOTE | 2022-04-11 18:08 | PC.NURSE ---
spoke with Daisy from [facility] at this time, stated to increase heparin gtt to 850 units/hr, 17 mL/hr, order next PTT at 0000
--- NOTE | 2022-04-11 19:18 | PC.NURSE ---
pt has remained tachy t/o shift, aware
[2022-04-11 19:36] LABS: Sodium 149 mmol/L (136-145)
[2022-04-11 23:38] LABS: Sodium 148 mmol/L (136-145)
[2022-04-11 23:38] LABS: Strep Scrn Group A (Rapid) Negative (Negative)
[2022-04-12] VITALS (24 sets, daily range): BP systolic 97–166; BP diastolic 36–109; PULSE 100–133; RESP 30–52; TEMP 36.8–37.8; O2SAT 96–100; BMI 22.1
[2022-04-12 00:50] LABS: PTT Heparin (inpatient only) 71.1 Seconds (23.6-34.0)
[2022-04-12 03:11] LABS: Sodium 146 mmol/L (136-145)
--- NOTE | 2022-04-12 05:49 | XR_ITS ---
PROCEDURE INFORMATION: Exam: XR Chest Exam date and time: 04/12/2022 6:29 AM Age: 67 years old Clinical indication: Shortness of breath TECHNIQUE: Imaging protocol: Radiologic exam of the chest. Views: 1 view. COMPARISON: CR XR CHEST PORTABLE 04/10/2022 10:13 PM FINDINGS: Lungs: Query pulmonary vascular congestion. Mild bibasilar airspace opacities. Pleural spaces: Unremarkable. No pleural effusion. No pneumothorax. Heart/Mediastinum: Unremarkable. No cardiomegaly. Bones/joints: Unremarkable. IMPRESSION: 1. Query pulmonary vascular congestion. 2. Mild bibasilar airspace opacities, which may reflect atelectasis versus pneumonia.
--- NOTE | 2022-04-12 06:33 | ECG_ITS ---
APPROVED REPORT Exam: Resting ECG HR:125 bpm ECG Measurements Heart Rate 125 AXES SC 146 P 36 QRSd 86 QRS -55 QT 293 T 30 QTc 367 Conclusion SINUS TACHYCARDIA WITH FREQUENT SUPRAVENTRICULAR PREMATURE COMPLEXES LOW QRS VOLTAGE IN PRECORDIAL LEADS [QRS DEFLECTION < 1.0 mV IN CHEST LEADS] POSSIBLE ANTERIOR MYOCARDIAL INFARCTION , PROBABLY OLD [30 ms Q WAVE IN V3/V4, OR R < 0.2 mV IN V4] INFERIOR MYOCARDIAL INFARCTION , PROBABLY OLD [40+ ms Q WAVE AND/OR ST/T ABNORMALITY IN II/aVF] ABNORMAL ECG UNCONFIRMED REPORT Electronically signed by : Ismael Caraballo MD 04/12/2022 10:14:46
--- NOTE | 2022-04-12 06:54 | PC.NURSE ---
Pt remains tachycardic and tachypneic. EKG obtained. Farhat Sunshine SOLAR SALES MANAGER aware. Pt agitated at times. Medicated per mar. Urine dark, cloudy and purulent. 200 ml total output. Pt has been febrile this shift. Lungs noted to have rhonchi and crackles. Pt is on 2L O2 NC. Safety measures in place.
[2022-04-12 07:29] LABS: PTT Heparin (inpatient only) 57.5 Seconds (23.6-34.0)
[2022-04-12 07:30] LABS: Alanine Aminotransferase 26 U/L (12-78); Albumin/Globulin Ratio 1.1 (1.1-1.8); Alkaline Phosphatase 77 U/L (38-126); Anion Gap 13.7 mEq/L (5-15); Aspartate Amino Transferase 57 U/L (17-59); Bilirubin,Total 0.5 mg/dl (0.2-1.3); Blood Urea Nitrogen 49 mg/dl (9-20); Carbon Dioxide 13 mmol/L (22.0-30.0); Chloride 122 mmol/L (98-107); Creatinine Clearance Estimated 19 mL/min (50-200); Estimated Glomerular Filt Rate 17 ml/min (>60); GFR (African American) 21 ML/MIN (>60); Globulin 2.8 g/dL (1.3-3.2); Glucose 106 mg/dl (74-100); Magnesium 1.6 mg/dl (1.6-2.3); Potassium 3.7 mmoL/L (3.5-5.1); Sodium 145 mmol/L (136-145); Total Protein,Serum 5.8 g/dl (6.3-8.2)
[2022-04-12 07:34] LABS: Basophils # 0.1 K/mm3 (0-0.2); Basophils % 0.3 % (0.1-2.0); Eosinophils % 0.1 % (0.1-12.0); Hematocrit 32.5 % (42.0-52.0); Lymphocytes # 1.1 K/mm3 (0.7-4.5); Lymphocytes % 3.7 % (10-50); Mean Corpuscular HGB Conc 32.8 g/dL (31.8-35.4); Mean Corpuscular Hemoglobin 30.1 pg (27.0-31.2); Mean Corpuscular Volume 91.9 fl (80-94); Monocytes # 0.6 K/mm3 (0.1-1.0); Monocytes % 2.1 % (1.7-9.3); Neutrophils # 27.1 K/mm3 (1.8-7.8); Neutrophils % 93.8 % (37.0-80.0); Platelet Count 261 K/mm3 (142-424); Red Blood Count 3.54 M/mm3 (4.60-6.20); Red Cell Distribution Width 14.2 % (11.5-17.5); White Blood Count 28.9 K/mm3 (4.8-10.8)
[2022-04-12 07:36] LABS: Hemoglobin 10.7 g/dL (14.1-18.0); MANUAL DIFFERENTIAL MANUAL DIFFERENTIAL (MANUAL DIFF)
--- NOTE | 2022-04-12 07:41 | PC.NURSE ---
Pharmacy consulted for heparin gtt. No changes.
[2022-04-12 07:48] LABS: Lymphocytes % 2 % (10-50); Monocytes % 3 % (2-9); Neutrophils % 90 % (42-76); Platelet Estimate Normal; RBC Morphology Normal; Total Cells Counted 100
--- NOTE | 2022-04-12 10:08 | CT_ITS ---
FINAL REPORT TECHNIQUE: Axial CT images of the abdomen were obtained without contrast. Coronal reformatted images were also obtained.This study was performed with techniques to keep radiation doses as low as reasonably achievable (ALARA). Individualized dose reduction techniques using automated exposure control or adjustment of mA and/or kV according to the patient''s size were employed. CLINICAL HISTORY: Distention. hx of stroke. nonverbal FINDINGS: There is streak artifact from the patient's arms. There is bibasilar atelectasis. There is a moderate hiatal hernia. The liver has an unremarkable appearance, without evidence of mass. The gallbladder is of moderately distended. There is no evidence of biliary ductal dilatation. The pancreas appears normal. The spleen size is within normal limits. There is mild left renal atrophy. There is mild bilateral hydronephrosis. There is no renal or ureteral stone identified. There is no evidence of adenopathy. No abnormal fluid collection is seen. The urinary bladder is distended with wall thickening that is likely inflammatory. There is mild anasarca. IMPRESSION: Moderate hiatal hernia. Distended bladder with wall thickening, likely inflammatory. Mild bilateral hydronephrosis of uncertain etiology. Mild anasarca. Reviewed, Interpreted and Dictated by Magno Quintero III, MD Transcribed by Ky Martínez Authenticated and . [facility]
[2022-04-12 11:16] LABS: Sodium 142 mmol/L (136-145)
--- NOTE | 2022-04-12 12:34 | PC.NURSE ---
pt off unit to ct scan with this rn from 1103 to 1116
--- NOTE | 2022-04-12 12:52 | PC.NURSE ---
late entry: 1225 garcia catheter changed out per Dr haines orders. upon removal of old garcia, it was noted that pt has errosion of meatus noted. (Notified Dr Haines at 1230 face to face). copious amounts of brown purulent urine was noted to leak out. (estimated to be 300-400ml) urine was extremely thick with clots of purulent material and darryl blood with clots. urine had to be milked down the catheter bag tubing to allow it to pass. Dr Haines was notified of all of the above.
--- NOTE | 2022-04-12 13:24 | EXP.ACUTE.PN ---
Subjective *Date: 04/12/22 *Time: 17:10 Interval history: Unstable on rounds this morning. Patient remains tachycardic and tachypneic. Blood pressure normal, no hypotension. Minimal urine output. Urine draining in Alberts is cloudy, pink, frankly purulent. Abdomen more distended on morning exam, appears uncomfortable. Patient answered yes when asked if he was in pain. Remains febrile. Labs consistently show significant abnormalities, worsening renal function this morning on labs Medical Exam Vital signs and Labs for Last 24 Hours: Vital Signs Temp Pulse Pulse Pulse Resp BP Pulse Ox 04/12/22 12:34 123 H 40 H 143/59 H 97 04/12/22 12:30 115 H 42 H 98/36 L 96 04/12/22 11:54 99.6 F 04/12/22 10:54 131 H 04/12/22 10:54 132 H 04/12/22 10:54 99 04/12/22 08:00 133 H 100 04/12/22 10:00 129 H 50 H 149/106 H 100 04/12/22 08:00 133 H 52 H 166/109 H 100 04/12/22 07:32 100.0 F H 04/12/22 06:00 129 H 38 H 155/52 H 100 04/12/22 04:00 132 H 38 H 150/70 H 100 04/12/22 00:00 120 H 04/12/22 04:46 130 H 04/12/22 03:53 98.2 F 04/11/22 19:00 96 04/12/22 02:00 120 H 38 H 140/77 98 04/12/22 00:00 127 H 32 H 97/56 L 100 04/11/22 22:00 130 H 32 H 128/53 L 96 04/11/22 20:00 129 H 38 H 146/85 H 95 04/11/22 23:59 101.5 F H 04/11/22 20:00 120 H 04/11/22 20:00 100.1 F H 04/11/22 18:00 125 H 36 H 112/86 97 04/11/22 16:00 125 H 04/11/22 16:00 128 H 32 H 176/82 H 93 L 04/11/22 15:35 98.9 F 04/11/22 14:00 127 H 28 H 137/70 94 L Intake and Output 04/11/22 04/12/22 04/12/22 23:59 07:59 15:59 Intake Total 1830 / 3518 2706 / 2706 Output Total 0 / 375 200 / 200 0 / 200 Balance 1830 / 3143 2506 / 2506 0 / 2506 Intake: Intake, Oral Amount 0 / 0 Intake, Total IV Amount 1830 / 3518 2706 / 2706 0.9 % Sodium Chloride 1,000 ml 1450 / 2743 1382 / 1382 @ 125 mls/hr IV .Q8H [facility] Rx#: [id number] Cefepime HCl 2 gm In 0.9 % 100 / 100 Sodium Chloride 100 ml @ 200 mls/hr IV Q8H [facility] Rx#:[id number] Dextrose 5 % in Water 1,000 ml 558 / 558 @ 50 mls/hr IV .Q20H [facility] Rx#: [id number] Heparin Sodium,Porcine/D5w 500 180 / 225 216 / 216 ml @ 850 UNITS/HR 17 mls/hr IV .Q25H [facility] Rx#:[id number] Metronidaz/Sod Chl 500 mg In 200 / 200 200 / 200 100 ml @ 100 mls/hr IV Q6H [facility] Rx#:[id number] Vancomycin HCl 1,000 mg In 0.9 250 / 250 % Sodium Chloride 250 ml @ 125 mls/hr IV Q24H [facility] Rx#:[id number] Output: Output, Urine Amount 0 / 0 0 / 0 0 / 0 Output, Urine Amount (Catheter) 200 / 200 Alberts 200 / 200 Other: Number of Unmeasured Voids 0 0 0 Weight 66.338 kg Patient Weight 04/12/22 23:59 Weight 66.338 kg Laboratory Results - last 24 hr 04/11/22 15:10: Sodium 148 H 04/11/22 17:25: APTT 47.7 H 04/11/22 18:55: Sodium 149 H 04/11/22 22:50: Sodium 148 H 04/11/22 23:12: Group A Strep Rapid Negative 04/12/22 00:15: APTT 71.1 H* 04/12/22 02:55: Sodium 146 H 04/12/22 07:10: WBC 28.9 H*, RBC 3.54 L, Hgb 10.7 L D, Hct 32.5 L, MCV 91.9, MCH 30.1, MCHC 32.8, RDW 14.2, Plt Count 261 D, MPV 8.0, Neut % (Auto) 93.8 H, Lymph % (Auto) 3.7 L, [place] % (Auto) 2.1, Eos % (Auto) 0.1, Baso % (Auto) 0.3, Neut # (Auto) 27.1 H, Lymph # (Auto) 1.1, [place] # (Auto) 0.6, Eos # (Auto) 0.0, Baso # (Auto) 0.1, Total Counted 100, Neutrophils % (Manual) 90 H, Band Neutrophils % 5.0, Lymphocytes % (Manual) 2 L, Monocytes % (Manual) 3, Platelet Estimate Normal, RBC Morphology Normal 04/12/22 07:10: Sodium 145, Potassium 3.7, Chloride 122 H, Carbon Dioxide 13 L, Anion Gap 13.7, BUN 49 H D, Creatinine 3.60 H D, Estimated Creat Clear 19, Estimated GFR 17 L*, Est GFR ( Amer) 21 L D, Glucose 106 H D, Calcium 8.0 L, Phosphorus 3.0, Magnesium 1.6 D, Total Bilirubi
--- NOTE | 2022-04-12 14:36 | DIET.NUTRFU ---
RD rounded with provider, patient continues to be confusion and seemed anxious. Has hx of brain injury unable to answer questions. Also unable to participate in swallow study to determine safe oral diet. Most appropriate way of nutrition would be NG tube, if able to place he tube. Currently receive IV, currently lactated ringers, received dextrose yesterday. Renal fxn is at 42 BUN and Cr 3.6, worse then 04/11 at BUN 32, Cr 2.3H, may need to limit protein in TF depending on future labs, formula may need to be adjusted. At increased risk for skin breakdown, dependent on staff for repositioning. Nutritional needs are 1650kcal and 65-72gm protein (dependent on direction of labs) and 1980ml/day (no hx of CHF). No hx of DM, standard formula of Jevity 1.2 should be tolerated. Start Jevity 1.2 at 20ml/hr and increase to reach goal of 60ml/hr to provide 1728kvcal and 79gm protein and 1162ml free water, would need 200 [id number] total fluid. Will need to monitor IVF and adjust as needed. Will continue to monitor
[2022-04-12 15:18] LABS: Sodium 146 mmol/L (136-145)
[2022-04-12 15:36] LABS: Microscopic, Urine URINE MICROSCOPIC (MICROSCOPIC)
[2022-04-12 15:38] LABS: Appearance,Urine CLOUDY (Clear); Bilirubin,Urine Negative (Negative); Blood, Urine 3+ (Negative); Color,Urine YELLOW (Yellow); Glucose,Urine (UA) Negative (Negative); Ketones,Urine TRACE (Negative); Leukocyte Esterase,Urine 3+ (Negative); Nitrate,Urine Negative (Negative); Protein,Urine 3+ (Negative); Urobilinogen,Urine 0.2 EU/dl (0.2)
[2022-04-12 15:55] LABS: RBC,Urine TNTC #/hpf (0-3); WBC,Urine TNTC #/hpf (0-3)
--- NOTE | 2022-04-12 17:59 | XR_ITS ---
PROCEDURE INFORMATION: Exam: XR Chest Exam date and time: 04/12/2022 6:04 PM Age: 67 years old Clinical indication: Device placement; Patient HX: Evaluate ng tube placement. TECHNIQUE: Imaging protocol: Radiologic exam of the chest. Views: 1 view. COMPARISON: CR XR CHEST PORTABLE 04/12/2022 6:29 AM FINDINGS: Tubes, catheters and devices: NG tube is present, distal tip overlying the approximate location of the mid esophagus. There is a loop incompletely visualized involving a tube in the region of the upper neck and cannot exclude some looping of the NG tube. Lungs: Lung volumes are mildly diminished. No focal areas of consolidation. Pleural spaces: No pleural effusions or appreciable adenopathy. Negative for pneumothorax. Heart/Mediastinum: Cardiac silhouette and pulmonary vasculature are within range of normal. Calcified lymph nodes are present in the right infrahilar region. Bones/joints: There is no evidence of acute fracture. IMPRESSION: 1. NG tube distal tip overlying the approximate location of the mid esophagus. There is a loop incompletely visualized involving the tube in the region of the upper neck and cannot exclude some looping of the NG tube in this region. Correlate clinically. 2. Negative for an acute cardiopulmonary abnormality.
[2022-04-12 18:01] LABS: Chloride 119 mmol/L (98-107); Potassium 3.7 mmoL/L (3.5-5.1); Sodium 146 mmol/L (136-145)
[2022-04-12 18:04] LABS: Anion Gap 11.7 mEq/L (5-15); Blood Urea Nitrogen 43 mg/dl (9-20); Calcium 8.1 mg/dl (8.4-10.2); Carbon Dioxide 19 mmol/L (22.0-30.0); Creatinine Clearance Estimated 26 mL/min (50-200); Estimated Glomerular Filt Rate 25 ml/min (>60); GFR (African American) 30 ML/MIN (>60); Glucose 105 mg/dl (74-100)
--- NOTE | 2022-04-12 18:33 | PC.NURSE ---
called and made Dr Haines aware of pt BMP results available at 1833
--- NOTE | 2022-04-12 19:14 | XR_ITS ---
PROCEDURE INFORMATION: Exam: XR Chest Exam date and time: 04/12/2022 7:15 PM Age: 67 years old Clinical indication: Device placement; Patient HX: Second attempt at ng tube placement. ; Additional info: Ng tube placement confirmation TECHNIQUE: Imaging protocol: Radiologic exam of the chest. Views: 1 view. COMPARISON: CR XR CHEST PORTABLE 04/12/2022 6:04 PM FINDINGS: Tubes, catheters and devices: An NG tube is present, distal tip overlying the approximate location of the distal esophagus. Lungs: Lung volumes remain diminished. A few apparent minimally increased markings within the left lower lobe are minimally increased which may be due to vascular crowding from diminished lung volumes and patient rotation. The lungs appear otherwise clear. No focal areas of consolidation. Pleural spaces: No pleural effusions or appreciable adenopathy. Negative for pneumothorax. Heart/Mediastinum: Cardiac silhouette and pulmonary vasculature are within range of normal. Bones/joints: There is no evidence of acute fracture. IMPRESSION: Distal tip of NG tube overlies the approximate location of the distal esophagus.
--- NOTE | 2022-04-12 19:30 | PC.NURSE ---
difficulty inserting NG tube at 1720. Linda Reese RN at bedside to help with insertion at 1800. Xray showed NG tube possibly curled in esophagus, ng tube removed and reinserted x 2 by Linda Reese RN and RUSS Arrington RN at 1910. xray pending at this time. Dr Haines aware of difficulty with insertion.
--- NOTE | 2022-04-12 23:27 | XR_ITS ---
PROCEDURE INFORMATION: Exam: XR Chest Exam date and time: 04/12/2022 11:45 PM Age: 67 years old Clinical indication: Device placement; Ng tube; Additional info: Check ngt placement after reinsertion TECHNIQUE: Imaging protocol: Radiologic exam of the chest. Views: 1 view. COMPARISON: CR XR CHEST PORTABLE 04/12/2022 7:15 PM FINDINGS: Tubes, catheters and devices: NG tube at the level of the distal esophagus. Lungs: Low lung volumes. No focal infiltrates. Pleural spaces: Unremarkable. No pleural effusion. No pneumothorax. Heart/Mediastinum: Moderate cardiomegaly. Bones/joints: Unremarkable. IMPRESSION: NG tube at the level of the distal esophagus.
[2022-04-13] VITALS (14 sets, daily range): BP systolic 87–162; BP diastolic 40–65; PULSE 77–121; RESP 14–34; TEMP 36.8–38.1; O2SAT 94–100; BMI 22.6
[2022-04-13 06:56] LABS: Basophils % 0.2 % (0.1-2.0); Eosinophils # 0.2 K/mm3 (0.0-0.4); Eosinophils % 0.9 % (0.1-12.0); Hematocrit 32.1 % (42.0-52.0); Hemoglobin 10.2 g/dL (14.1-18.0); Lymphocytes # 1.4 K/mm3 (0.7-4.5); Lymphocytes % 5.6 % (10-50); Mean Corpuscular HGB Conc 31.7 g/dL (31.8-35.4); Mean Corpuscular Hemoglobin 29.2 pg (27.0-31.2); Mean Corpuscular Volume 92.2 fl (80-94); Mean Platelet Volume 8.3 fl (7.4-10.4); Monocytes # 0.5 K/mm3 (0.1-1.0); Monocytes % 1.9 % (1.7-9.3); Neutrophils # 22.1 K/mm3 (1.8-7.8); Neutrophils % 91.5 % (37.0-80.0); Platelet Count 247 K/mm3 (142-424); Red Blood Count 3.48 M/mm3 (4.60-6.20); Red Cell Distribution Width 14.2 % (11.5-17.5); White Blood Count 24.2 K/mm3 (4.8-10.8)
[2022-04-13 06:59] LABS: MANUAL DIFFERENTIAL MANUAL DIFFERENTIAL (MANUAL DIFF)
[2022-04-13 07:07] LABS: Alanine Aminotransferase 24 U/L (12-78); Albumin Level 2.7 g/dl (3.5-5.0); Albumin/Globulin Ratio 1.1 (1.1-1.8); Alkaline Phosphatase 95 U/L (38-126); Anion Gap 6.1 mEq/L (5-15); Aspartate Amino Transferase 41 U/L (17-59); Bilirubin,Total 0.5 mg/dl (0.2-1.3); Blood Urea Nitrogen 31 mg/dl (9-20); Calcium 7.9 mg/dl (8.4-10.2); Carbon Dioxide 26 mmol/L (22.0-30.0); Chloride 116 mmol/L (98-107); Creatinine Clearance Estimated 49 mL/min (50-200); Estimated Glomerular Filt Rate 51 ml/min (>60); GFR (African American) 61 ML/MIN (>60); Globulin 2.5 g/dL (1.3-3.2); Glucose 99 mg/dl (74-100); Potassium 3.1 mmoL/L (3.5-5.1); Sodium 145 mmol/L (136-145); Total Protein,Serum 5.2 g/dl (6.3-8.2)
[2022-04-13 07:15] LABS: Phosphorous 1.9 mg/dl (2.5-4.5)
--- NOTE | 2022-04-13 07:26 | PC.NURSE ---
notified MD Haines of pt's critical phosphorus of 1.9, no new orders at this time
[2022-04-13 07:48] LABS: Lymphocytes % 12 % (10-50); Monocytes % 1 % (2-9); Neutrophils % 87 % (42-76); Platelet Estimate Normal; RBC Morphology Normal; Total Cells Counted 100
--- NOTE | 2022-04-13 09:11 | IR_ITS ---
FINAL REPORT CLINICAL HISTORY: NG tube placement 2.23 TIME FINDINGS: Patient was placed supine on the fluoroscopy table. 18 Kinyarwanda NG tube, which was sent by the nursing staff, was placed into the patient's right nares. NG tube was advanced until the tip was near the GE junction. A guidewire was then placed through the NG tube. The NG tube was advanced from the GE junction into the second portion of the duodenum. Guidewire was removed. Small amount of contrast was injected to confirm tube placement. NG tube was then flushed with water. NG tube was secured to the patient's nose. Total of 4 images were saved. Fluoroscopy time: 2.23 minutes. IMPRESSION: Technically successful placement and advancement of an NG tube. The tip is in the second portion of the duodenum. Reviewed, Interpreted and Dictated by Magno Quintero III, MD Transcribed by Joyce Dodson PA-C Authenticated and [facility]
--- NOTE | 2022-04-13 11:29 | DIET.NUTRFU ---
Rounded with provider patient seemed much more alert today. Answered to name but was unable to follow directions. Still not sure he would be able to participate in swallow study. His baseline is more talkative per nursing. Nursing was unable to place NG tube yesterday, was able to place today and TF was started. Start Jevity 1.2 at 20ml/hr and increase to reach goal of 60ml/hr to provide 1728kvcal and 79gm protein and 1162ml free water, would need 200 [id number]=[id number] total fluid. Labs reviewed, K low at 3.1 and renal function has improved, with increase urine output of 2200ml. Urine still appeared pink to red today but improvement from yesterday per nursing. He was also noted to have BM 1/10. Continue on lactated ringers for additional hydration and to flush kidneys. Will need to monitor IVF and adjust as needed. Will continue to monitor. If able to follow directions tomorrow would recommend swallow study to determine if oral will be appropriate.
--- NOTE | 2022-04-13 15:21 | EXP.ACUTE.PN ---
Subjective *Date: 04/13/22 *Time: 15:21 Interval history: Clinically looking better this morning. Still tachycardic and tachypneic however improving. No fever this morning. Responsive on exam with brief yes and no answers. Abdomen less distended. Still having cloudy blood-tinged urine however thinner with no concern for obstruction this morning. Labs reviewed showing improvement in hypernatremia. White cell count improving. No vomiting. Unable to get NG placed due to large hiatal hernia, will have interventional radiology assist with placement today. Bowel movement yesterday. Medical Exam Vital signs and Labs for Last 24 Hours: Vital Signs Temp Pulse Pulse Resp BP Pulse Ox 04/13/22 12:00 98.3 F 82 22 125/65 96 04/13/22 11:22 104 H 04/13/22 11:22 105 H 04/13/22 11:22 98 04/13/22 08:00 118 H 04/13/22 08:00 100.6 F H 04/13/22 08:00 99 04/13/22 08:00 100.6 F H 110 H 22 101/60 L 100 04/13/22 06:00 118 H 30 H 99/54 L 99 04/13/22 06:13 77 04/13/22 06:13 80 04/13/22 06:13 94 L 04/13/22 02:00 98 04/13/22 05:00 107 H 04/13/22 00:00 121 H 04/13/22 04:00 99.7 F H 04/13/22 04:00 107 H 34 H 87/58 L 97 04/13/22 02:00 115 H 21 114/55 L 96 04/13/22 00:00 116 H 22 104/57 L 96 04/13/22 00:00 98.4 F 04/12/22 20:00 99 04/12/22 22:00 116 H 30 H 136/41 L 99 04/12/22 23:01 118 H 04/12/22 23:01 115 H 04/12/22 20:00 116 H 04/12/22 20:00 99.1 F 04/12/22 20:00 109 H 33 H 148/58 H 100 04/12/22 16:00 119 H 99 04/12/22 18:14 118 H 04/12/22 18:14 116 H 04/12/22 18:14 100 04/12/22 18:22 119 H 34 H 130/58 L 100 04/12/22 16:00 100 H 04/12/22 15:30 111 H 30 H 114/49 L 100 Intake and Output 04/12/22 04/13/22 04/13/22 23:59 07:59 15:59 Intake Total 2808 / 5514 222 / 2224 / 4 Output Total 800 / 2700 775 / 1175 400 / 1175 Balance 2007 1449 / 1049 -400 / 1049 Intake: Intake, Oral Amount 0 / 0 Intake, Total IV Amount 2808 / 5514 2224 / 2224 0.9 % Sodium Chloride 1,000 ml 543 / 1925 @ 125 mls/hr IV .Q8H [facility] Rx#: [id number] Cefepime HCl 2 gm In 0.9 % 50 / 150 50 / 50 Sodium Chloride 100 ml @ 200 mls/hr IV Q8H [facility] Rx#:[id number] Dextrose 5 % in Water 1,000 ml 253 / 811 @ 50 mls/hr IV .Q20H [facility] Rx#: [id number] Heparin Sodium,Porcine/D5w 500 67 / 283 ml @ 850 UNITS/HR 17 mls/hr IV .Q25H [facility] Rx#:[id number] Metronidaz/Sod Chl 500 mg In 100 / 300 100 ml @ 100 mls/hr IV Q6H [facility] Rx#:[id number] Ringers Solution,Lactated 1,000 397 / 397 1068 / 1068 ml @ 100 mls/hr IV .Q10H [facility] Rx#:[id number] Ringers Solution,Lactated 1,000 1000 / 1000 ml @ 500 mls/hr IV .Q2H [facility] Rx #:[id number] Sodium Bicarbonate 150 meq In 398 / 398 1106 / 1106 Dextrose 5 % in Water 1,000 ml @ 100 mls/hr IV .[id number] [facility] Rx #:[id number] Output: Output, Urine Amount 800 / 800 400 / 400 Output, Urine Amount (Catheter) 775 / 775 [place] 775 / 775 Other: Number of Unmeasured Voids 0 0 Number of Bowel Movements 1 Weight 67.585 kg Patient Weight 04/13/22 23:59 Weight 67.585 kg Laboratory Results - last 24 hr 04/12/22 12:30: Urine Color Yellow, Urine Appearance Cloudy, Urine pH 8.0, Ur Specific [place] 1.020, Urine Protein 3+, Urine Glucose (UA) Negative, Urine Ketones Trace, Urine Blood 3+, Urine Nitrate Negative, Urine Bilirubin Negative, Urine Urobilinogen 0.2, Ur Leukocyte Esterase 3+ A, Urine RBC Tntc, Urine WBC Tntc, Ur Squamous Epith Cells None, Urine Bacteria None 04/12/22 17:37: Sodium 146 H, Potassium 3.7, Chloride 119 H, Carbon Dioxide 19 L, Anion Gap 11.7, BUN 43 H, Creatinine 2.60 H D, Estimated Creat Clear 26, Estimated GFR 25 L, Est GFR (
--- NOTE | 2022-04-13 16:58 | PC.NURSE ---
Patient resting in bed comfortably, alert to person, able to answer simple yes or no questions, NG tube placed this shift per IR radiology, 18F NG tube at 75, Tube feedings initiated this shift, jevity 1.2 at 20ml/hr with 200ml flush q6h, has tolerated well with 5ml GRV at each check, HR reg, ST per telemetry, lung sounds diminished in bl bases with scattered rhonchi t/o, abd soft and nontender with hyperactive bowel sounds in all quads, voids per FC, urine octaviano with sediment, peripheral pulses 1+, vss, bed in lowest position with call light in reach.
--- NOTE | 2022-04-13 17:29 | XR_ITS ---
PROCEDURE INFORMATION: Exam: XR Chest Exam date and time: 04/13/2022 5:37 PM Age: 67 years old Clinical indication: Dyspnea; Additional info: Increased dyspnea TECHNIQUE: Imaging protocol: Radiologic exam of the chest. Views: 1 view. COMPARISON: CR XR CHEST PORTABLE 04/12/2022 11:45 PM FINDINGS: Tubes, catheters and devices: Esophagogastric tube advanced from previous position with its tip positioned in the right mid abdominal region, which could lie in the gastric antrum/pylorus or possibly the proximal duodenum. Lungs: Low lung volumes. Pulmonary vasculature grossly normal. Mild bilateral basilar/infrahilar alveolar opacities, slightly increased on the right, which could represent subsegmental atelectasis versus patchy mild basilar edema or pneumonia. Perihilar granulomatous calcifications. Pleural spaces: No pleural effusion. No pneumothorax. Heart/Mediastinum: Heart size normal. No tracheal/mediastinal shift. Bones/joints: No acute osseous abnormalities are identified. Osteopenia. IMPRESSION: 1. Bilateral infrahilar/medial basilar airspace disease which is mildly increased on the right. This may represent increased subsegmental atelectasis from decreased lung volumes, versus mild basilar edema or pneumonia. 2. Esophagogastric tube advanced with its tip in the right mid abdominal region.
[2022-04-14] VITALS (10 sets, daily range): BP systolic 116–167; BP diastolic 52–83; PULSE 75–117; RESP 14–36; TEMP 36.8–37.3; O2SAT 94–100; BMI 22.3
--- NOTE | 2022-04-14 04:00 | PC.NURSE ---
pt moved to room 202 via hospital bed with personal belongings, report given to Nan gonzalez
--- NOTE | 2022-04-14 06:17 | PC.NURSE ---
TUBE FEEDING JEVITY 1.2 INFUSING AT 30 ML/HR/PUMP. FREE WATER [id number] ML EVERY 6 HRS. HOB UP 35 DEGREES. PATIENT IS TOTAL CARE. TURN Q 2 HRS AND REPOSITION. F/C TO BEDSIDE DRAIN, UOP ADEQUATE.
[2022-04-14 07:45] LABS: Basophils % 0.3 % (0.1-2.0); Eosinophils # 0.3 K/mm3 (0.0-0.4); Eosinophils % 2.3 % (0.1-12.0); Hematocrit 30.3 % (42.0-52.0); Hemoglobin 9.8 g/dL (14.1-18.0); Lymphocytes # 1.9 K/mm3 (0.7-4.5); Lymphocytes % 14.1 % (10-50); Mean Corpuscular HGB Conc 32.2 g/dL (31.8-35.4); Mean Corpuscular Hemoglobin 30.1 pg (27.0-31.2); Mean Corpuscular Volume 93.4 fl (80-94); Mean Platelet Volume 8.6 fl (7.4-10.4); Monocytes # 0.6 K/mm3 (0.1-1.0); Monocytes % 4.4 % (1.7-9.3); Neutrophils # 10.5 K/mm3 (1.8-7.8); Platelet Count 235 K/mm3 (142-424); Red Blood Count 3.25 M/mm3 (4.60-6.20); Red Cell Distribution Width 14.2 % (11.5-17.5); White Blood Count 13.3 K/mm3 (4.8-10.8)
[2022-04-14 07:50] LABS: Alanine Aminotransferase 24 U/L (12-78); Albumin Level 2.4 g/dl (3.5-5.0); Alkaline Phosphatase 84 U/L (38-126); Anion Gap 0.8 mEq/L (5-15); Aspartate Amino Transferase 46 U/L (17-59); Bilirubin,Total 0.5 mg/dl (0.2-1.3); Blood Urea Nitrogen 19 mg/dl (9-20); Calcium 7.6 mg/dl (8.4-10.2); Carbon Dioxide 27 mmol/L (22.0-30.0); Chloride 113 mmol/L (98-107); Creatinine Clearance Estimated 68 mL/min (50-200); Estimated Glomerular Filt Rate 96 ml/min (>60); GFR (African American) 117 ML/MIN (>60); Globulin 2.3 g/dL (1.3-3.2); Glucose 91 mg/dl (74-100); Sodium 138 mmol/L (136-145); Total Protein,Serum 4.7 g/dl (6.3-8.2)
[2022-04-14 08:01] LABS: Phosphorous 1.7 mg/dl (2.5-4.5); Potassium 2.8 mmoL/L (3.5-5.1)
--- NOTE | 2022-04-14 08:03 | PC.NURSE ---
lab called with critical k. 2.8, phos 1.7. harry notified.
--- NOTE | 2022-04-14 11:30 | DIET.NUTRFU ---
Addendum entered by Jennifer Das RD, LD 04/14/22 16:35: PUMP ERECTOR HELPER saw patient, completed trails of ice chips, water and applesauce and was not able to cough and clear. Continue NPO recommendations, PUMP ERECTOR HELPER will try again in morning dependent on cognition and alertness. Will continue to meet nutritional needs via TF. If cannot advance oral diet, recommend PEG placement for [facility] nutrition Original Note: Patient is tolerating TF, now at 40ml/hr with goal rate of 60ml/hr. His mental status continues to improve, PUMP ERECTOR HELPER to see today to determine safe oral diet with goals to be able to meet needs without TF. Will continue TF until PUMP ERECTOR HELPER eval. labs continue to improve, renal labs 18/0.8WNL, potassium and phosphorus depleted, pharmacy to replace. IVF discontinued, some edema present from increased hydration. Wt is up secondary to fluid also, admit wt was 61kg and todays wt is 67kg. LBM 04/13, urine output at 1375ml 04/13.Will follow PUMP ERECTOR HELPER recommendations, provide did report yesterday afternoon he was able to cough and stick out tongue by command.
--- NOTE | 2022-04-14 12:51 | EXP.PHA.PN ---
Subjective *Date: 04/14/22 *Time: 12:51 Medical Exam Vital signs and Labs for Last 24 Hours: Vital Signs Temp Pulse Pulse Resp BP Pulse Ox FiO2 04/14/22 11:02 98.5 F 84 36 H 128/52 L 98 04/14/22 08:00 36 H 04/14/22 07:47 98.6 F 79 26 H 116/74 94 L 04/14/22 06:35 80 04/14/22 06:35 86 04/14/22 06:35 97 04/14/22 04:00 99.2 F 102 H 28 H 119/62 96 04/14/22 04:00 88 04/13/22 20:00 115 H 04/14/22 00:00 117 H 04/14/22 00:00 98.8 F 89 14 128/53 L 98 04/13/22 20:00 101 H 96 04/13/22 23:06 105 H 04/13/22 23:06 108 H 04/13/22 20:00 98.9 F 110 H 14 162/43 H 96 04/13/22 18:28 109 H 04/13/22 18:28 113 H 04/13/22 18:28 100 21 04/13/22 16:01 110 H 04/13/22 15:50 98.4 F 112 H 28 H 129/40 L 100 Intake and Output 04/13/22 04/14/22 04/14/22 23:59 07:59 15:59 Intake Total 2618 / 4842 1375 / 1375 Output Total 200 / 1375 67789 / 29499 Balance 2418 / 3467 -9625 / -9625 Intake: Intake, Oral Amount 0 / 0 Intake, Tube Feeding Amount 274 / 274 121 / 121 Intake, Tube Irrigant Amount 260 / 260 505 / 505 Intake, Total IV Amount 2084 / 4308 749 / 749 Cefepime HCl 1 gm In 0.9 % 100 / 100 Sodium Chloride 50 ml @ 100 mls /hr IV Q12H [facility] Rx#:[id number] Ringers Solution,Lactated 1,000 1983 / 305 749 / 749 ml @ 150 mls/hr IV .Q6H40M [facility] Rx#:[id number] Output: Output, Urine Amount 200 / 600 06573 / 64116 Other: Number of Unmeasured Voids 0 0 Number of Bowel Movements 1 Weight 66.88 kg Patient Weight 04/14/22 23:59 Weight 66.88 kg Laboratory Results - last 24 hr 04/14/22 06:50: WBC 13.3 H D, RBC 3.25 L, Hgb 9.8 L, Hct 30.3 L, MCV 93.4, MCH 30.1, MCHC 32.2, RDW 14.2, Plt Count 235, MPV 8.6, Neut % (Auto) 79.0, Lymph % (Auto) 14.1, [place] % (Auto) 4.4, Eos % (Auto) 2.3, Baso % (Auto) 0.3, Neut # (Auto) 10.5 H, Lymph # (Auto) 1.9, [place] # (Auto) 0.6, Eos # (Auto) 0.3, Baso # (Auto) 0.0 04/14/22 06:50: Sodium 138, Potassium 2.8 L*, Chloride 113 H, Carbon Dioxide 27, Anion Gap 0.8 L, BUN 19 D, Creatinine 0.80 D, Estimated Creat Clear 68, Estimated GFR 96, Est GFR ( Amer) 117 D, Glucose 91, Calcium 7.6 L, Phosphorus 1.7 L, Total Bilirubin 0.5, AST 46, ALT 24, Alkaline Phosphatase 84, Total Protein 4.7 L, Albumin 2.4 L D, Globulin 2.3, Albumin/Globulin Ratio 1.0 L I & O for Labs for Last 24 Hours: Intake & Output 04/11/22 04/12/22 04/13/22 04/14/22 23:59 23:59 23:59 23:59 Intake Total 3518 / 3518 5514 / 5514 4842 / 4842 1375 / 1375 Output Total 375 / 375 2200 / 2700 1375 / 1375 67848 / 44056 Balance 3143 / 3143 3314 / 2814 3467 / 3467 -9625 / -9625 Weight 62.4 kg 66.338 kg 67.585 kg 66.88 kg Microbiology Reports for the Last 24 Hours: Microbiology 04/12/22 12:30 Urine,Catheterized Urine Culture - Preliminary NO GROWTH AFTER 24 HOURS 04/11/22 23:12 Throat Group A Streptococcus Screen (MARISOL) - Final Negative for Group A Streptococcus. The patient's infection will respond to the chosen ABx?: Yes Is the patient receiving the right drug, dose, and route?: Yes Could a more targeted ABx be ordered?: No
--- NOTE | 2022-04-14 16:24 | HMH.SLDYSPHA ---
Speech & Language Evaluation Speech/Language Dysphagia Evaluation Start: 04/14/22 15:52 Freq: ONCE Status: Active Protocol: Document 04/14/22 15:52 DAVI (Rec: 04/14/22 16:24 DAVI [id number]) Dysphagia Assess/Goals/Plan Assessment Date of Evaluation: 04/14/22 Evaluation Type Initial Certification Assessment/Problems CSE completed per MD order. Does Patient Qualify for Service Yes Qualify/Failure Comment Based on CSE results, pt would benefit from further testing when cognitive status improves . LIFTER plans on f/u with pt tomorrow morning to complete another CSE. Recommendations PHYSICIAN CERTIFICATION: The specified therapy services are required, authorized, and reviewed every 30 days. Pt will be seen # times/week 3 for # weeks 4 Diet Recommendations NPO SL Swallow Guidelines High aspiration risk Plan Anticipate reaching STG in # weeks 2 Anticipate reaching LTG in # weeks 4 Pt/Guardian verbally ack understanding Yes of dx/prognosis/goals G -code Required No STG-Other Comment/Non-Specific Pt will complete ice chip/thin water trials with no overt s/ sxs of aspiration with 100% accuracy based on clinical observation. Pt will complete f/u bedside when cognitive status improves and further instrumental testing via MBSS as needed. Web Site Project Manager Goals Pt will maintain nutrition/hydration via Yes alternative means Education Instructions provided Discussed CSE results and need for f/u CSE and/or further instrumental testing as cog status changes with nursing and care management who expressed understanding. Pt/Caregiver able to recall information Able to recall/restate Reinforcement needed No Speech & Language HPI History Present Illness Description of Patient Problem Pt is a 67-year-old male who is a resident of a long-term care facility. Per Chart review he has a history of Stroke, Chronic Dementia, chronic indwelling garcia, and history of Covid 19. He presented to [facility] from the local [place],
--- NOTE | 2022-04-14 17:37 | EXP.ACUTE.PN ---
Subjective *Date: 04/14/22 *Time: 17:37 Interval history: Clinically looking better today. Fever defervescing. Symptoms overall defervescing. Kidney function improving. Urine still showing sediment but improving, more clear. Patient more interactive on afternoon rounds, somnolent on morning rounds. Tolerating tube feeds. Awaiting speech eval. Having bowel movements. Stable on room air for over 24 hours now. Stopped IV fluids on morning rounds. No nausea, vomiting, complaint of chest pain or dyspnea. Medical Exam Vital signs and Labs for Last 24 Hours: Vital Signs Temp Pulse Pulse Resp BP Pulse Ox FiO2 04/14/22 16:00 98.8 F 84 24 167/73 H 100 04/14/22 12:55 75 04/14/22 12:55 77 04/14/22 11:02 98.5 F 84 36 H 128/52 L 98 04/14/22 08:00 36 H 04/14/22 07:47 98.6 F 79 26 H 116/74 94 L 04/14/22 06:35 80 04/14/22 06:35 86 04/14/22 06:35 97 04/14/22 04:00 99.2 F 102 H 28 H 119/62 96 04/14/22 04:00 88 04/13/22 20:00 115 H 04/14/22 00:00 117 H 04/14/22 00:00 98.8 F 89 14 128/53 L 98 04/13/22 20:00 101 H 96 04/13/22 23:06 105 H 04/13/22 23:06 108 H 04/13/22 20:00 98.9 F 110 H 14 162/43 H 96 04/13/22 18:28 109 H 04/13/22 18:28 113 H 04/13/22 18:28 100 21 Intake and Output 04/14/22 04/14/22 04/14/22 07:59 15:59 23:59 Intake Total 1375 / 1375 Output Total 49868 / 54591 1200 / 42926 Balance -9625 / -46176 -1200 / -68819 Intake: Intake, Oral Amount 0 / 0 Intake, Tube Feeding Amount 121 / 121 Intake, Tube Irrigant Amount 505 / 505 Intake, Total IV Amount 749 / 749 Ringers Solution,Lactated 1,000 749 / 749 ml @ 150 mls/hr IV .[id number] [facility] Rx#:[id number] Output: Output, Urine Amount 11721 / 10847 Output, Urine Amount (Catheter) 1200 / 1200 Alberts 1200 / 1200 Other: Number of Unmeasured Voids 0 Weight 66.88 kg Patient Weight 04/14/22 23:59 Weight 66.88 kg Laboratory Results - last 24 hr 04/14/22 06:50: WBC 13.3 H D, RBC 3.25 L, Hgb 9.8 L, Hct 30.3 L, MCV 93.4, MCH 30.1, MCHC 32.2, RDW 14.2, Plt Count 235, MPV 8.6, Neut % (Auto) 79.0, Lymph % (Auto) 14.1, Montgomery % (Auto) 4.4, Eos % (Auto) 2.3, Baso % (Auto) 0.3, Neut # (Auto) 10.5 H, Lymph # (Auto) 1.9, Montgomery # (Auto) 0.6, Eos # (Auto) 0.3, Baso # (Auto) 0.0 04/14/22 06:50: Sodium 138, Potassium 2.8 L*, Chloride 113 H, Carbon Dioxide 27, Anion Gap 0.8 L, BUN 19 D, Creatinine 0.80 D, Estimated Creat Clear 68, Estimated GFR 96, Est GFR ( Amer) 117 D, Glucose 91, Calcium 7.6 L, Phosphorus 1.7 L, Total Bilirubin 0.5, AST 46, ALT 24, Alkaline Phosphatase 84, Total Protein 4.7 L, Albumin 2.4 L D, Globulin 2.3, Albumin/Globulin Ratio 1.0 L I & O for Labs for Last 24 Hours: Intake & Output 04/11/22 04/12/22 04/13/22 04/14/22 23:59 23:59 23:59 23:59 Intake Total 3518 / 3518 5514 / 5514 4842 / 4842 1375 / 1375 Output Total 375 / 375 2200 / 2700 1375 / 1375 53236 / 14423 Balance 3143 / 3143 3314 / 2814 3467 / 3467 -15599 / -65596 Weight 62.4 kg 66.338 kg 67.585 kg 66.88 kg Microbiology Reports for the Last 24 Hours: Microbiology 04/12/22 12:30 Urine,Catheterized Urine Culture - Final NO GROWTH AFTER 48 HOURS Constitutional: Present no acute distress, average body habitus, chronically ill appearing and cooperative Head: Present atraumatic ENT: Present mucous membranes moist Comment:: NG in left nare Neck: Present normal inspection Respiratory: Present accessory muscle use, rhonchi, wheezes and diminished air movement; Absent normal respiratory effort Cardiac: Present Regular Rhythm, S1/S2 and Tachycardia GI: Present soft and distention; Absent tenderness Rectal (male): Present deferred (male): Present normal inspection Comment:: Alberts in place, pink tinged, cloudy urine Extremities: Present norm
--- NOTE | 2022-04-14 17:40 | CT_ITS ---
PROCEDURE INFORMATION: Exam: CTA Chest With Contrast Exam date and time: 04/14/2022 6:25 PM Age: 67 years old Clinical indication: Shortness of breath; Additional info: Rule out pe TECHNIQUE: Imaging protocol: Computed tomographic angiography of the chest with contrast. 3D rendering (Not supervised by radiologist): MIP and/or 3D reconstructed images were created by the technologist. Radiation optimization: All CT scans at this facility use at least one of these dose optimization techniques: automated exposure control; mA and/or kV adjustment per patient size (includes targeted exams where dose is matched to clinical indication); or iterative reconstruction. Contrast material: ISOVUE 370; Contrast volume: 70 ml; Contrast route: INTRAVENOUS (IV); COMPARISON: CR XR CHEST PORTABLE 04/13/2022 5:37 PM FINDINGS: Tubes, catheters and devices: An NG tube is present, distal tip in the proximal duodenum. Pulmonary arteries: Bolus timing is insufficient for definitive exclusion of small peripheral pulmonary emboli. There is heterogeneous contrast attenuation of visualized pulmonary arteries, more pronounced in the subsegmental vessels and likely related to contrast bolus. This limits the detection of pulmonary emboli in the small and peripheral pulmonary arterial branches. As seen, no large or central pulmonary emboli. Aorta: The aorta demonstrates mild atherosclerotic calcification. There is no evidence of aortic dissection, leak, rupture, or other acute vascular pathology. There is mild stenosis involving the origin of the innominate artery Celiac trunk and mesenteric arteries: . Atherosclerotic vascular calcifications involve the origin the celiac artery without stenosis. Thyroid: The visualized thyroid gland is normal. Lungs: Nonspecific bibasilar opacities are consistent with atelectasis, edema, or pneumonia. Minor linear density in the left lung apex likely reflects parenchymal scarring or atelectasis. Minor paraseptal emphysema is present in the lung apices. There is a small focus of increased density in the left lung apex which likely reflects parenchymal scarring. Small ground-glass focus in the medial aspect of the right middle lobe is nonspecific, likely atelectasis or parenchymal scarring. Similar finding is seen along the superolateral left upper lobe.. Pleural spaces: No pneumothorax. There are small bilateral pleural effusions. Heart: The visualized portions of the heart are unremarkable. There is no evidence of pericardial fluid collections. Coronary arteries: There is mild atherosclerotic calcification of the coronary arteries. Mediastinal space: Apparent mild distal esophageal wall thickening could be on the basis of incomplete distension, small hiatal hernia but cannot exclude mild esophagitis. Lymph nodes: Calcified right hilar lymph nodes indicate prior granulomatous disease. No pathologic adenopathy. Diaphragm: A small hiatal hernia is present. Liver: There is diffuse decrease in hepatic/liver parenchymal density consistent with fatty infiltration. Gallbladder and bile ducts: There is either gallbladder wall thickening or pericholecystic fluid.The gallbladder is the gallbladder is mildly distended measuring 7.0 x 4.7 by 4.6 cm. Stomach and bowel: Apparent mild proximal gastric mural thickening could be on the basis of incomplete distension but cannot exclude gastritis or other inflammatory or infiltrative process. Correlate clinically. Bones/joints: The thoracic spine demonstrates mild degenerative changes at multiple levels. Mild compressive changes involve the L1 vertebral body, age indeterminate. Soft tissu
--- NOTE | 2022-04-14 19:26 | PC.NURSE ---
pt alert to self only. rhonchi heard t/o malini lungs. ra tolerating well with sats 99%. ng tube in place at 78cm. tube feeding at 40ml an hr, needs to be gradually increased to 60ml/hr. malini heels floating, q2 turns. cb within reach. no other concerns at this time.
[2022-04-15] VITALS (13 sets, daily range): BP systolic 132–156; BP diastolic 60–83; PULSE 66–102; RESP 16–28; TEMP 36.6–37.4; O2SAT 92–100; BMI 22.5
--- NOTE | 2022-04-15 03:56 | PC.NURSE ---
PATIENT HAS JEVITY 1.2 INFUSING AT 60 ML/HR/PUMPTO N/G TUBE. HOB UP 35 DEGREES. TURNED AND REPOSITIONED Q 2 HRS. RHONCHI NOTED BILAT LUNG WATERS. PERSISTANT DRY COUGH. TELEMETRY MONITORING SHOWS A FIB. F/C PATENT AND INTACT TO [facility], [facility] ADEQUATE AMTS.
--- NOTE | 2022-04-15 07:06 | US_ITS ---
FINAL REPORT CLINICAL HISTORY: CT with pericholecystic fluid FINDINGS: Sonographic images of the right upper quadrant were obtained. The pancreas is partially obscured. There is fatty infiltration of the liver. A large amount of sludge fills the gallbladder without well-defined gallstones. There is significant gallbladder wall thickening measuring up to 11 mm with mild pericholecystic fluid. There is no evidence of biliary ductal dilatation.The common duct measures 3 mm. Limited images of the right kidney are unremarkable. IMPRESSION: Abnormal appearance of the gallbladder, cholecystitis is not excluded. If indicated, nuclear medicine hepatic biliary scan may be helpful. Reviewed, Interpreted and Dictated by Magno Quintero III, MD Transcribed by Anum Summers Authenticated and [facility]
[2022-04-15 07:45] LABS: Basophils # 0.1 K/mm3 (0-0.2); Basophils % 0.7 % (0.1-2.0); Eosinophils # 0.5 K/mm3 (0.0-0.4); Eosinophils % 5.9 % (0.1-12.0); Hemoglobin 10.3 g/dL (14.1-18.0); Lymphocytes # 1.4 K/mm3 (0.7-4.5); Lymphocytes % 17.8 % (10-50); Mean Corpuscular HGB Conc 32.2 g/dL (31.8-35.4); Mean Corpuscular Hemoglobin 30.1 pg (27.0-31.2); Mean Corpuscular Volume 93.7 fl (80-94); Mean Platelet Volume 8.3 fl (7.4-10.4); Monocytes # 0.6 K/mm3 (0.1-1.0); Monocytes % 7.4 % (1.7-9.3); Neutrophils # 5.5 K/mm3 (1.8-7.8); Neutrophils % 68.2 % (37.0-80.0); Platelet Count 244 K/mm3 (142-424); Red Blood Count 3.41 M/mm3 (4.60-6.20); Red Cell Distribution Width 14.4 % (11.5-17.5); White Blood Count 8.1 K/mm3 (4.8-10.8)
[2022-04-15 07:54] LABS: Alanine Aminotransferase 28 U/L (12-78); Albumin Level 2.7 g/dl (3.5-5.0); Albumin/Globulin Ratio 1.1 (1.1-1.8); Alkaline Phosphatase 90 U/L (38-126); Anion Gap 7.1 mEq/L (5-15); Aspartate Amino Transferase 44 U/L (17-59); Bilirubin,Total 0.3 mg/dl (0.2-1.3); Blood Urea Nitrogen 14 mg/dl (9-20); Calcium 7.6 mg/dl (8.4-10.2); Carbon Dioxide 25 mmol/L (22.0-30.0); Chloride 108 mmol/L (98-107); Creatinine Clearance Estimated 68 mL/min (50-200); Estimated Glomerular Filt Rate 112 ml/min (>60); GFR (African American) 136 ML/MIN (>60); Globulin 2.5 g/dL (1.3-3.2); Glucose 118 mg/dl (74-100); Potassium 3.1 mmoL/L (3.5-5.1); Sodium 137 mmol/L (136-145); Total Protein,Serum 5.2 g/dl (6.3-8.2)
[2022-04-15 08:51] LABS: Lipase 2640 U/L (23-300)
--- NOTE | 2022-04-15 10:52 | CARE MANAGER ---
Addendum entered by Kanwal Jose RN 04/15/22 11:04: Ceci called me back to let me know that state guardian is now Tina Hank @ [phone]. I spoke with Tina to discuss case, she is agreeable for patient to return to [facility] once medically ready. Original Note: I attempted to call Ceci (guardian), to discuss discharge planning. She did not answer, message was left to call me back.
--- NOTE | 2022-04-15 11:27 | DIET.NUTRFU ---
Patient was able to participate with speech therapy today and diet was changed to MSOFT ground with thin liquids and no straws. Assistance with meals to monitor clearing of food. Since oral diet is now feasible will discontinue TF via NG, monitor oral intake to determine if supplements are needed. Discharge plan when ready is back to [facility] and they can assist with is meal intake. LBM noted 04/13, urine out good at [id number] and already 2370ml today. Hydration Labs non-significant.
--- NOTE | 2022-04-15 16:53 | EXP.ACUTE.PN ---
Subjective *Date: 04/15/22 *Time: 16:53 Interval history: Patient stable this morning. Speech performed evaluation for swallowing. Patient passed with modified diet recommendations. We will remove NG today and stop tube feeds. Patient remains afebrile. Urine relatively clear in catheter today. No nausea or vomiting. Following commands. Stable on room air. Unable to obtain significant review of systems based on history of CVA. Medical Exam Vital signs and Labs for Last 24 Hours: Vital Signs Temp Pulse Pulse Resp BP Pulse Ox 04/15/22 12:00 86 04/15/22 16:00 66 04/15/22 08:00 102 H 04/15/22 16:00 90 04/15/22 08:00 92 L 04/15/22 12:00 99.2 F 94 H 20 156/80 H 95 04/15/22 11:05 82 04/15/22 11:05 78 04/15/22 08:00 99.3 F 90 16 132/67 92 L 04/15/22 04:00 79 04/15/22 03:46 99.1 F 77 26 H 152/65 H 96 04/15/22 00:00 92 H 04/15/22 00:00 98.7 F 93 H 28 H 147/83 H 100 04/15/22 00:09 94 H 04/15/22 00:09 94 H 04/14/22 20:00 98 04/14/22 20:00 86 04/14/22 20:00 98.3 F 88 32 H 143/83 H 98 04/14/22 18:40 93 H 04/14/22 18:40 91 H 04/14/22 18:40 96 Intake and Output 04/15/22 04/15/22 04/15/22 07:59 15:59 23:59 Intake Total 1342 / 1362 20 / 1362 Output Total 1620 / 2370 750 / 2370 0 / 2370 Balance -278 / -1008 -730 / -1008 0 / -1008 Intake: Intake, Oral Amount 20 / 20 Intake, Tube Feeding Amount 867 / 867 Intake, Tube Irrigant Amount 425 / 425 Intake, Total IV Amount 50 / 50 Cefepime HCl 1 gm In 0.9 % 50 / 50 Sodium Chloride 50 ml @ 100 mls /hr IV Q12H [facility] Rx#:[id number] Output: Output, Urine Amount 1620 / 2370 750 / 2370 0 / 2370 Other: Number of Unmeasured Voids 0 0 Weight 67.404 kg Patient Weight 04/15/22 23:59 Weight 67.404 kg Laboratory Results - last 24 hr 04/15/22 07:33: Lipase 2640 H 04/15/22 07:33: WBC 8.1 D, RBC 3.41 L, Hgb 10.3 L, Hct 32.0 L, MCV 93.7, MCH 30.1, MCHC 32.2, RDW 14.4, Plt Count 244, MPV 8.3, Neut % (Auto) 68.2, Lymph % (Auto) 17.8, Dunn % (Auto) 7.4, Eos % (Auto) 5.9, Baso % (Auto) 0.7, Neut # (Auto) 5.5, Lymph # (Auto) 1.4, Dunn # (Auto) 0.6, Eos # (Auto) 0.5 H, Baso # (Auto) 0.1 04/15/22 07:33: Sodium 137, Potassium 3.1 L, Chloride 108 H, Carbon Dioxide 25, Anion Gap 7.1, BUN 14 D, Creatinine 0.70, Estimated Creat Clear 68, Estimated GFR 112, Est GFR ( Amer) 136, Glucose 118 H, Calcium 7.6 L, Total Bilirubin 0.3, AST 44, ALT 28, Alkaline Phosphatase 90, Total Protein 5.2 L, Albumin 2.7 L D, Globulin 2.5, Albumin/Globulin Ratio 1.1 I & O for Labs for Last 24 Hours: Intake & Output 04/12/22 04/13/22 04/14/22 04/15/22 23:59 23:59 23:59 23:59 Intake Total 5514 / 5514 4842 / 4842 1375 / 1375 1362 / 1362 Output Total 2200 / 2700 1375 / 1375 67069 / 37639 2370 / 2370 Balance 3314 / 2814 3467 / 3467 -44035 / -76522 -1008 / -1008 Weight 66.338 kg 67.585 kg 66.88 kg 67.404 kg Microbiology Reports for the Last 24 Hours: Microbiology 04/10/22 15:21 Blood Blood Culture - Final NO GROWTH AFTER 5 DAYS 04/10/22 15:21 Blood Blood Culture - Final NO GROWTH AFTER 5 DAYS 04/12/22 12:30 Urine,Catheterized Urine Culture - Final NO GROWTH AFTER 48 HOURS Constitutional: Present no acute distress, average body habitus, chronically ill appearing and cooperative Head: Present atraumatic ENT: Present mucous membranes moist Neck: Present normal inspection Respiratory: Present accessory muscle use and rhonchi; Absent wheezes, crackles or normal respiratory effort Cardiac: Present Regular Rhythm, S1/S2 and Tachycardia GI: Present soft and distention; Absent tenderness Rectal (male): Present deferred (male): Present normal inspection Comment:: Alberts in place, pink tinged, cloudy urine Extremities: Present nor
--- NOTE | 2022-04-15 17:32 | PC.NURSE ---
pt alert to name and birthday, can state where he lives, remains on room air, NSR on telemetry, radha remains in place, NG removed this shift, pt tolerating mechanical soft diet
[2022-04-16] VITALS: BP 149/81; PULSE 85; PULSE 91; RESP 20; TEMP 36.7; O2SAT 94
[2022-04-16 04:00] VITALS: BP 130/65; PULSE 79; PULSE 82; RESP 18; TEMP 37.1; O2SAT 95; BMI 22.3
--- NOTE | 2022-04-16 05:23 | PC.NURSE ---
PATIENT HAS HAD AN UNEVENTFUL NIGHT. DENIES PAIN. F/C TO [facility],URINE CLEAR YELLOW
[2022-04-16 06:28] VITALS: PULSE 76; PULSE 78; O2SAT 95
[2022-04-16 08:00] VITALS: BP 149/72; PULSE 86; PULSE 90; RESP 16; TEMP 36.9; O2SAT 97
[2022-04-16 09:13] LABS: Basophils % 0.5 % (0.1-2.0); Eosinophils # 0.4 K/mm3 (0.0-0.4); Eosinophils % 5.4 % (0.1-12.0); Hematocrit 34.1 % (42.0-52.0); Hemoglobin 11.6 g/dL (14.1-18.0); Lymphocytes # 1.5 K/mm3 (0.7-4.5); Mean Corpuscular HGB Conc 34.1 g/dL (31.8-35.4); Mean Corpuscular Volume 88.1 fl (80-94); Monocytes # 0.7 K/mm3 (0.1-1.0); Monocytes % 8.5 % (1.7-9.3); Neutrophils # 5.1 K/mm3 (1.8-7.8); Neutrophils % 66.6 % (37.0-80.0); Platelet Count 283 K/mm3 (142-424); Red Blood Count 3.87 M/mm3 (4.60-6.20); Red Cell Distribution Width 14.2 % (11.5-17.5); White Blood Count 7.7 K/mm3 (4.8-10.8)
[2022-04-16 09:20] LABS: Chloride 107 mmol/L (98-107)
[2022-04-16 09:21] LABS: Potassium 3.6 mmoL/L (3.5-5.1); Sodium 137 mmol/L (136-145)
[2022-04-16 09:23] LABS: Alanine Aminotransferase 48 U/L (12-78); Alkaline Phosphatase 99 U/L (38-126); Anion Gap 7.6 mEq/L (5-15); Aspartate Amino Transferase 80 U/L (17-59); Bilirubin,Total 0.5 mg/dl (0.2-1.3); Blood Urea Nitrogen 12 mg/dl (9-20); Carbon Dioxide 26 mmol/L (22.0-30.0); Creatinine Clearance Estimated 68 mL/min (50-200); Estimated Glomerular Filt Rate 112 ml/min (>60); GFR (African American) 136 ML/MIN (>60)
[2022-04-16 09:24] LABS: Albumin/Globulin Ratio 1.1 (1.1-1.8); Globulin 2.8 g/dL (1.3-3.2); Glucose 101 mg/dl (74-100); Total Protein,Serum 5.8 g/dl (6.3-8.2)
[2022-04-16 09:34] LABS: Lipase 1497 U/L (23-300)
--- NOTE | 2022-04-16 10:16 | EXP.DC.SUM ---
General Admission date:: 04/10/22 Discharge date: 04/16/22 HPI HPI HPI: Mr. Smith is a 67-year-old male who is a resident of a long-term care facility. Per Chart review he has a history of Stroke, Chronic Dementia, chronic indwelling garcia, and history of Covid 19. He presented to [facility] from the local [place], [facility] due to confusion outside his normal. Per discussion with ER physician the patient was also agitated and required Haldol in the ER. Work-up in the ER was concerning for Sepsis with WBC of 28.6, Lactic Acid of 4.3, HR of 142 and Temperture of 100.7. Suspected source of UTI with urinalysis showing 2 plus leukoesterase, 20-50 WBC and 3 plus bacteria. In the ER order was written to change garcia, cultures were drawn. He was given Fluid bolus and placed on maintenance fluids and given Rocephin empirically. Hospital Course Hospital Course Hospital Course: Mr Smith is a 67-year-old male who is a resident of a long-term care facility, Presented with confusion and agitation outside his normal, found to have diagnostics concerning for Sepsis due to pyelonephritis. Symptoms improved after replacing catheter twice and allowing for sufficient drainage of urinary system. Gerry pyuria initially. Gradually improved with normal-appearing urine on day of discharge. Stable for discharge back to long-term. Plan to complete antibiotics in the outpatient setting. Problems addressed as follows: Suspected source urine.? Clinically improving with defervescence of vitals.? Tolerating tube feeds.? Stable on room air.? Continues to require inpatient management.? Speech eval today with recommendations for advancement of diet.? Patient performed much better with speech today.? Okay to remove NG.? Problems addressed as follows: - Acute Encephalopathy -Severe sepsis, resolved -DINO, resolved -Pyelonephritis Admitted for encephalopathy, severe sepsis, found to be secondary to pyelonephritis. Catheter replaced on admission however having poor output with thick frankly purulent urine. Patient developed abdominal pain, CT of abdomen was obtained showing severe distention of bladder. Kidney function worsening the first few days. Garica was replaced with significant drainage and removal of large quantity of pyuria. Patient began to have improvement clinically with drastic improvement in renal function that normalized back to baseline of creatinine <1. Patient's mentation improved. Able to follow commands. Initially provided nutrition via NG due to inability to swallow. Antibiotics de-escalated to cefepime based on sensitivities and cultures. Plan to complete total of 14 days of antibiotics. Garcia catheter exchanged again on day of discharge. Will need to be exchanged monthly or sooner if begins to develop signs of infection. Blood cultures remain negative during hospitalization. -Plan to complete 7 more days of antibiotics (total of 14 days). Transition to ceftriaxone for ease of dosing. 1 g daily for 7 total doses. - Suspect pulmonary embolism, ruled out - Thickened gallbladder wall Able to obtain CTA after normalization of kidney function. No concern for PE. De-escalated therapeutic Lovenox. CT did show however thickening of gallbladder wall and pericholecystic fluid. Ultrasound obtained with mild abnormal appearance of gallbladder, sludge, but no biliary dilatation. Liver enzymes have remained normal. Patient would benefit from outpatient evaluation with surgery to discuss elective cholecystectomy. Patient has had no abdominal pain for the past 48 hours. Malnutrition - See Speech eval for recommendations: diet was changed to MSOFT ground with thin liquids and no straws. Assistance with meals to monitor clearing of food. No indication for PEG tube placement at this time Dementia History of CVA - Complicates current care - Patient is a chow of the [facility]. Exam Data for Last 24 hours Vital signs and Labs for Last 2
--- NOTE | 2022-04-18 13:15 | CARE MANAGER ---
Spoke with [facility] staff. They state the patient is doing much better and deny any questions or concerns. [place]
== END 2022-04-16 12:37 | DRG 698 ==
LOC: ER 17:26 → 2ND 20:26
PROVIDERS: Nurse Practitioner Acute Care; Nurse Practitioner Family; Student in an Organized Health Care Education/Training Program; Admitting Provider Internal Medicine Adolescent Medicine; Emergency Provider Emergency Medicine; Visit Provider Internal Medicine Adolescent Medicine
DX: T83.511A Infection and inflammatory reaction due to indwelling urethral catheter, initial encounter (principal); A41.9 Sepsis, unspecified organism; R65.20 Severe sepsis without septic shock; E87.0 Hyperosmolality and hypernatremia; G93.40 Encephalopathy, unspecified; N17.9 Acute kidney failure, unspecified; E46 Unspecified protein-calorie malnutrition; E87.3 Alkalosis; N10 Acute pyelonephritis; Y84.6 Urinary catheterization as the cause of abnormal reaction of the patient, or of later complication, without mention of misadventure at the time of the procedure; F03.90 Unspecified dementia, unspecified severity, without behavioral disturbance, psychotic disturbance, mood disturbance, and anxiety; Z86.73 Personal history of transient ischemic attack (TIA), and cerebral infarction without residual deficits; Z68.22 Body mass index [BMI] 22.0-22.9, adult; B96.4 Proteus (mirabilis) (morganii) as the cause of diseases classified elsewhere
CPT/HCPCS: 36415; 70450; 71045; 71275; 74150; 76705; 80048; 80053; 81001; 82803; 83605; 83690; 83735; 83880; 84100; 84145; 84295; 84443; 84484; 85007; 85025; 85378; 85730; 87040; 87086; 87088; 87186; 87430; 92526; 92610; 93005; 93306; 94640; 99285; C1769; C9803; J0692; J0696; J3370; Q9967; U0003; U0005

== ENCOUNTER 2022-06-04 20:55 | Inpatient (IN) | payer MEDICARE, MEDICAID, SELFPAY ==
[2022-06-04] VITALS (7 sets, daily range): BP systolic 92–125; BP diastolic 51–77; PULSE 84–107; RESP 18–24; TEMP 36.6–37.8; O2SAT 94–99; BMI 24.2
--- NOTE | 2022-06-04 21:03 | CT_ITS ---
PROCEDURE INFORMATION: Exam: CT Abdomen And Pelvis With Contrast Exam date and time: 06/04/2022 9:49 PM Age: 67 years old Clinical indication: Abdominal pain; Additional info: Abd pain, tenderness to lower abd, fever TECHNIQUE: Imaging protocol: Computed tomography of the abdomen and pelvis with contrast. Radiation optimization: All CT scans at this facility use at least one of these dose optimization techniques: automated exposure control; mA and/or kV adjustment per patient size (includes targeted exams where dose is matched to clinical indication); or iterative reconstruction. Contrast material: ISOVUE; Contrast volume: 75 ml; Contrast route: IV; REPORTING DATA: Count of CT and Cardiac NM exams in prior 12 months: This patient has received 7 known CTs and 0 known cardiac nuclear medicine studies in the 12 months prior to the current study. COMPARISON: CT ABDOMEN WO CON 04/12/2022 11:04 AM FINDINGS: Liver: Normal. No mass. Gallbladder and bile ducts: Normal. No calcified stones. No ductal dilation. Pancreas: Normal. No ductal dilation. Spleen: Normal. No splenomegaly. Adrenal glands: Normal. No mass. Kidneys and ureters: Normal. No hydronephrosis. Stomach and bowel: A large amount of retained stool is present in the rectum. No evidence of bowel obstruction. Appendix: No evidence of appendicitis. Intraperitoneal space: Unremarkable. No free air. No significant fluid collection. Vasculature: Significant mural thrombus and moderate calcification noted throughout the aorta and iliac arteries. No evidence of aortic aneurysm or dissection. Lymph nodes: Unremarkable. No enlarged lymph nodes. Urinary bladder: There is significant diffuse wall thickening and mucosal enhancement of the urinary bladder compatible with cystitis. Alberts catheter noted in the urinary bladder. Reproductive: Unremarkable as visualized. Bones/joints: There is moderate thoracolumbar scoliosis. There is stable mild compression of the L1, L3 and L5 vertebral bodies. No acute fracture. Evidence of old left proximal femur fracture with orthopedic hardware in place. Surrounding heterotopic ossification noted. Soft tissues: Unremarkable. IMPRESSION: 1. Significant findings of cystitis 2. Large amount of retained stool in the rectum raising concern for fecal impaction
--- NOTE | 2022-06-04 21:04 | XR_ITS ---
PROCEDURE INFORMATION: Exam: XR Chest Exam date and time: 06/04/2022 9:33 PM Age: 67 years old Clinical indication: Fever; Additional info: Low sat via EMS, fever TECHNIQUE: Imaging protocol: Radiologic exam of the chest. Views: 1 view. COMPARISON: CR XR CHEST PORTABLE 04/13/2022 5:37 PM FINDINGS: Lungs: Unremarkable. No consolidation. Pleural spaces: Unremarkable. No pleural effusion. No pneumothorax. Heart/Mediastinum: Unremarkable. No cardiomegaly. Bones/joints: Unremarkable. IMPRESSION: No acute findings.
[2022-06-04 21:12] LABS: Coronavirus 19, PCR Not Detected (NotDetected); Influenza A, PCR Not Detected (NotDetected); Influenza B, PCR Not Detected (NotDetected); Microscopic, Urine URINE MICROSCOPIC (MICROSCOPIC)
[2022-06-04 21:15] LABS: Basophils # 0.1 K/mm3 (0-0.2); Basophils % 0.2 % (0.1-2.0); Eosinophils % 0.1 % (0.1-12.0); Hematocrit 40.6 % (42.0-52.0); Hemoglobin 13.3 g/dL (14.1-18.0); Lymphocytes # 1.3 K/mm3 (0.7-4.5); Mean Corpuscular HGB Conc 32.8 g/dL (31.8-35.4); Mean Corpuscular Hemoglobin 29.2 pg (27.0-31.2); Mean Platelet Volume 7.4 fl (7.4-10.4); Monocytes # 1.2 K/mm3 (0.1-1.0); Monocytes % 3.7 % (1.7-9.3); Neutrophils # 29.7 K/mm3 (1.8-7.8); Neutrophils % 91.9 % (37.0-80.0); Platelet Count 406 K/mm3 (142-424); Red Blood Count 4.56 M/mm3 (4.60-6.20); Red Cell Distribution Width 14.7 % (11.5-17.5); White Blood Count 32.3 K/mm3 (4.8-10.8)
[2022-06-04 21:16] LABS: Appearance,Urine CLEAR (Clear); Bilirubin,Urine 1+ (Negative); Blood, Urine 3+ (Negative); Color,Urine YELLOW (Yellow); Glucose,Urine (UA) Negative (Negative); Ketones,Urine Negative (Negative); Leukocyte Esterase,Urine 2+ (Negative); Nitrate,Urine Negative (Negative); PH,Urine 5.5 (5.0-8.5); Protein,Urine 2+ (Negative); Specific Gravity, Urine >= 1.030 (1.005-1.030); Urobilinogen,Urine 0.2 EU/dl (0.2)
[2022-06-04 21:17] LABS: Bacteria,Urine 1+ /lpf; Squamous Epithelial Cell,Urine Occasional #/hpf (0-5); WBC,Urine 20-50 #/hpf (0-3)
[2022-06-04 21:20] LABS: Alanine Aminotransferase 22 U/L (12-78); Albumin/Globulin Ratio 1.3 (1.1-1.8); Alkaline Phosphatase 105 U/L (38-126); Anion Gap 10.2 mEq/L (5-15); Aspartate Amino Transferase 20 U/L (17-59); Bilirubin,Total 0.9 mg/dl (0.2-1.3); Blood Urea Nitrogen 34 mg/dl (9-20); Calcium 9.5 mg/dl (8.4-10.2); Carbon Dioxide 26 mmol/L (22.0-30.0); Chloride 110 mmol/L (98-107); Creatinine Clearance Estimated 49 mL/min (50-200); Estimated Glomerular Filt Rate 51 ml/min (>60); GFR (African American) 61 ML/MIN (>60); Glucose 127 mg/dl (74-100); Potassium 4.2 mmoL/L (3.5-5.1); Sodium 142 mmol/L (136-145)
[2022-06-04 21:21] LABS: Lactic Acid 1.1 mmol/L (0.7-2.1)
[2022-06-04 21:26] LABS: C-Reactive Protein 211.8 mg/L (0-4); MANUAL DIFFERENTIAL MANUAL DIFFERENTIAL (MANUAL DIFF)
--- NOTE | 2022-06-04 21:31 | ECG_ITS ---
APPROVED REPORT Exam: Resting ECG HR:103 bpm ECG Measurements Heart Rate 103 AXES VA 163 P 60 QRSd 83 QRS -67 QT 357 T 58 QTc 417 Conclusion SINUS TACHYCARDIA Old anterior and inferior changes ABNORMAL ECG UNCONFIRMED REPORT Electronically signed by : Ismael Caraballo MD 06/05/2022 07:03:36
--- NOTE | 2022-06-04 21:37 | HMH.EDFEV ---
Discharge Plan Disposition Patient Disposition: Admitted As Inpatient Chief Complaint: Fever Clinical Impressions Clinical Impression: Acute UTI, Cystitis, SIRS (systemic inflammatory response syndrome), DINO (acute kidney injury) Discharge ED Provider: Urmila (ED)Isma Fever HPI General Chief Complaint: Fever Stated Complaint: shivers/abnormal vital signs Time Seen by Provider: 06/04/22 21:00 Mode of Arrival: EMS Source of Information: Patient, EMS and Medical Record Limitations: Physical Limitations Description of Symptoms (Recalled from ER Triage Doc. by RN): Pt c/o abd pain for days . Per EMS, they were called out to SNF d/t patient shivering and bad vitals . EMS states the pt had a BP of 150/115 and HR 51. EMS placed pt on 2LPM NC d/t their pulses ox not reading and CO2 monitor was alerting. On arrival, pt reports of feeling cold and my stomach hurts . History of Present Illness HPI Narrative: pt sent from [facility] with abn vital signs and hx of abd pain w/o vomiting or diarrhea - has elle garcia MD complaint: fever and weakness Onset (ago): day(s) Related Data Home Medications Medication Instructions Recorded Confirmed acetaminophen 500 mg tablet 1,000 mg PO Q6HP PRN Mild Pain 04/11/22 06/04/22 (Scale Score 1-4) aspirin 81 mg chewable tablet 81 mg PO DAILY HEART HEALTH 04/11/22 06/04/22 finasteride 5 mg tablet 5 mg PO DAILY enlarged prostate 04/11/22 06/04/22 lansoprazole 15 mg capsule,delayed 15 mg PO DAILY ACID REFLUX 04/11/22 06/04/22 release simvastatin 20 mg tablet 20 mg PO DAILY Cholesterol 04/11/22 06/04/22 bupropion HCl 75 mg tablet 75 mg PO BID Depression 06/04/22 06/04/22 ergocalciferol (vitamin D2) 1,250 1,250 mcg PO WEEKLY Supplement 06/04/22 06/04/22 mcg (50,000 unit) capsule (Drisdol) lorazepam 2 mg/mL injection 1 mg IV Q8HP PRN anxiety/aggitation 06/04/22 06/04/22 solution (Ativan) miconazole nitrate 2 % topical 1 applic topical DAILY skin 06/04/22 06/04/22 cream infection Allergies Allergy/AdvReac Type Severity Reaction Status Date / Time No Known Allergies Allergy Verified 08/16/21 11:05 [facility] Disclaimer: The information contained in this section may have been updated after the patient was seen, as this information can be updated by other users. Medical History (Updated 06/04/22 @ 23:21 by Isma Kearns (ED)MD) COVID Dementia History of anemia History of stroke Hyperlipidemia Hypertension Indwelling Garcia catheter present Stroke Social History Smoking Status: Former smoker pack-years: 46 alcohol intake: never substance use type: denies use current occupational status: disabled Travel in the last 8 weeks: None household members: caregiver housing: assisted living facility caffeine: Yes ROS Obtained: Yes All systems reviewed & no additional complaints except as documented Physical Exam General General appearance: alert Head Head exam: normocephalic Eye Eye exam: Present PERRL and EOMI; Absent scleral icterus ENT ENT exam: Present mucous membranes dry Neck Neck exam: Present trachea midline; Absent meningismus Respiratory Respiratory exam: Present other (dec bs ); Absent respiratory distress Cardiovascular Cardiovascular exam: Present tachycardia and systolic murmur Abdominal Exam Abdominal exam: Present soft and tenderness; Absent guarding or rebound Abdominal tenderness: Present diffuse and mild Extremities Exam Extremities exam: Absent joint swelling Neurological Exam Neurological exam: Present alert and CN II-XII intact; Absent oriented X3 or motor sensory deficit Skin Skin exam: Absent rash Medical Decision Making Medical Records Medical records reviewed: Yes I reviewed the patient's medical records. Sravan Inquiry Pt receiving controlled substance: No Vital Signs: 06/04/22 20:55 06/04/22 21:12 06/04/22 21:30 Temperature 100.1 F H Temperature Kellen
[2022-06-04 21:39] LABS: Procalcitonin 0.555 ng/mL (0.0-2.0)
--- NOTE | 2022-06-04 21:42 | PC.NURSE ---
Eb, nurse from [facility], called for an update. Update given to him on pt care
--- NOTE | 2022-06-04 21:44 | PC.NURSE ---
Pt gone to RAD via stretcher
--- NOTE | 2022-06-04 21:52 | PC.NURSE ---
Pt back from RAD
[2022-06-04 21:58] LABS: Lymphocytes % 5 % (10-50); Monocytes % 3 % (2-9); Neutrophils % 92 % (42-76); Platelet Estimate Normal; RBC Morphology Normal; Total Cells Counted 100
[2022-06-04 22:25] LABS: Amylase 51 U/L (30-110); Lipase 41 U/L (23-300)
[2022-06-04 22:49] LABS: Erythrocyte Sedimentation Rate 42 mm/hr (0-20)
--- NOTE | 2022-06-04 23:58 | PC.NURSE ---
Pt arrived to floor via stretcher @ [id number]
[2022-06-05 00:08] VITALS: BP 110/56; PULSE 98; RESP 18; TEMP 36.9; O2SAT 97; BMI 21.4
--- NOTE | 2022-06-05 00:40 | EXP.HP ---
History of Present Illness *Admission Date: 06/05/22 *Reason for visit:: Abdominal Pain *History of present illness: This is a 67 year old male with a PMHx of Demenita, Chronic Indwelling Garcia Catheter, and prior CVA who presents to the Emergency department from his SNF with staff concerns for something not being right . They reports he was having rigors and increase BP. ROS difficulty to obtain due to chornic AMS. Emergency department work up significant for acute cystitis in the setting of Chronic Indewelling Garcia Catheter and DINO. Patient noted to have a creatinine of 2.0 with baseline around 1. Purulent drainage noted in garcia catheter. Leukocytosis noted with WBC of 32. On prior admission, patient was admitted with similar presentation. He was noted to have distended bladder and had improvements in labs after replacement of Garcia Catheter. Due to the above mentioned complaints, he will be admitted for further evaluation and management. [facility] Disclaimer: The information contained in this section may have been updated after the patient was seen, as this information can be updated by other users. Medical History Alcohol dependence COVID Dementia Dysphagia History of anemia History of stroke Hyperlipidemia Hypertension Indwelling Garcia catheter present Major depressive disorder Stroke TIA (transient ischemic attack) Social History (Updated 06/05/22 @ 01:10 by Cata Bloom RN) Smoking Status: Former smoker pack-years: 46 alcohol intake: former substance use type: denies use current occupational status: disabled Travel in the last 8 weeks: None household members: caregiver housing: assisted living facility caffeine: Yes Review of Systems Review of Systems Review of systems:: unable to obtain Meds Home Medications and Allergies Home Medications Medication Instructions Recorded Confirmed Type acetaminophen 500 mg tablet 1,000 mg PO Q6HP PRN Mild Pain 04/11/22 06/05/22 History (Scale Score 1-4) aspirin 81 mg chewable tablet 81 mg PO DAILY HEART HEALTH 04/11/22 06/05/22 History finasteride 5 mg tablet 5 mg PO DAILY enlarged prostate 04/11/22 06/05/22 History lansoprazole 15 mg capsule,delayed 15 mg PO DAILY ACID REFLUX 04/11/22 06/05/22 History release simvastatin 20 mg tablet 20 mg PO DAILY Cholesterol 04/11/22 06/05/22 History bisacodyl 5 mg tablet,delayed 10 mg PO DAILYP PRN Constipation 06/04/22 06/05/22 History release (Dulcolax (bisacodyl)) bupropion HCl 75 mg tablet 75 mg PO BID Depression 06/04/22 06/05/22 History emollient 1 ea topical DAILY Skin condition 06/04/22 06/05/22 History ergocalciferol (vitamin D2) 1,250 1,250 mcg PO WEEKLY Supplement 06/04/22 06/05/22 History mcg (50,000 unit) capsule (Drisdol) glucagon 1 mg/0.2 mL subcutaneous 1 mg SQ DIRECTED hypoglycemia 06/04/22 06/05/22 History auto-injector FS <60 loperamide 2 mg tablet (Imodium 2 mg PO Q4H PRN loose stools 06/04/22 06/05/22 History A-D) lorazepam 2 mg/mL injection 1 mg IV Q8HP PRN anxiety/aggitation 06/04/22 06/05/22 History solution (Ativan) miconazole nitrate 2 % topical 1 applic topical DAILY skin 06/04/22 06/05/22 History cream infection mirtazapine 15 mg tablet (Remeron) 15 mg PO HS depresssion 06/04/22 06/05/22 History sennosides 8.6 mg capsule (senna) 17.2 mg PO HS PRN constipaition 06/04/22 06/05/22 History New Prescriptions to Start Prescriptions: Allergies Allergy/AdvReac Type Severity Reaction Status Date / Time No Known Allergies Allergy Verified 08/16/21 11:05 Exam Data for Last 24 hours Vital signs and Labs for Last 24 Hours: Temp Pulse Resp BP Pulse Ox 98.5 F 98 H 18 110/56 L 97 06/05/22 00:08 06/05/22 00:08 06/05/22 00:08 06/05/22 00:08 06/05/22 00:08 Laboratory Results - last 24 hr 06/04/22 20:50: Urine Color Yellow, Urine Appearance Clear, Urine pH 5.5, Ur Specific Grav
[2022-06-05 04:00] VITALS: BP 116/56; PULSE 86; RESP 16; TEMP 37.1; O2SAT 93; BMI 21.4
[2022-06-05 07:56] LABS: Anion Gap 8.8 mEq/L (5-15); Blood Urea Nitrogen 24 mg/dl (9-20); Calcium 8.6 mg/dl (8.4-10.2); Carbon Dioxide 23 mmol/L (22.0-30.0); Chloride 115 mmol/L (98-107); Chol/HDL Ratio 2.4 (1-3.5); Cholesterol 97 mg/dl (140-200); Creatinine Clearance Estimated 61 mL/min (50-200); Estimated Glomerular Filt Rate 84 ml/min (>60); GFR (African American) 102 ML/MIN (>60); Glucose 82 mg/dl (74-100); HDL Cholesterol 41 mg/dl (40-60); Potassium 3.8 mmoL/L (3.5-5.1); Sodium 143 mmol/L (136-145); Triglycerides 58 mg/dl (30-150); VLDL Cholesterol 12 mg/dL (0-40)
[2022-06-05 08:00] VITALS: BP 103/53; PULSE 88; RESP 18; TEMP 36.9; O2SAT 97
[2022-06-05 08:01] LABS: Basophils # 0.1 K/mm3 (0-0.2); Basophils % 0.4 % (0.1-2.0); Eosinophils # 0.1 K/mm3 (0.0-0.4); Eosinophils % 0.5 % (0.1-12.0); Hematocrit 34.3 % (42.0-52.0); Lymphocytes # 1.5 K/mm3 (0.7-4.5); Lymphocytes % 5.7 % (10-50); Mean Corpuscular HGB Conc 31.9 g/dL (31.8-35.4); Mean Corpuscular Hemoglobin 29.3 pg (27.0-31.2); Mean Corpuscular Volume 91.7 fl (80-94); Mean Platelet Volume 7.4 fl (7.4-10.4); Monocytes # 1.1 K/mm3 (0.1-1.0); Neutrophils # 24.3 K/mm3 (1.8-7.8); Neutrophils % 89.4 % (37.0-80.0); Platelet Count 313 K/mm3 (142-424); Red Blood Count 3.74 M/mm3 (4.60-6.20); Red Cell Distribution Width 14.7 % (11.5-17.5); White Blood Count 27.2 K/mm3 (4.8-10.8)
[2022-06-05 08:07] LABS: Direct LDL Cholesterol < 30.00 mg/dL (100-129)
[2022-06-05 08:12] LABS: MANUAL DIFFERENTIAL MANUAL DIFFERENTIAL (MANUAL DIFF)
[2022-06-05 08:50] LABS: Erythrocyte Sedimentation Rate 84 mm/hr (0-20)
[2022-06-05 08:56] LABS: C-Reactive Protein 250.3 mg/L (0-4)
[2022-06-05 09:51] LABS: Lymphocytes % 10 % (10-50); Monocytes % 3 % (2-9); Neutrophils % 87 % (42-76); Platelet Estimate Normal; RBC Morphology Normal; Total Cells Counted 100
[2022-06-05 10:52] VITALS: BP 113/50; PULSE 83; RESP 19; TEMP 37.1; O2SAT 95
--- NOTE | 2022-06-05 11:11 | EXP.PN ---
Subjective *Date: 06/05/22 *Time: 11:11 Interval history: Date of service June 05, 2022 Nursing staff report that the patient remains afebrile with stable vital signs and saturating appropriately on room air. We have reviewed and discussed and I personally interpreted his labs and imaging as follows: A CBC with a leukocytoses white blood cell count 27,000, hemoglobin 11, hematocrit 34, platelet count 313, sodium 143, potassium 3.8, BUN 24, creatinine 0.9, glucose trend under 125, procalcitonin negative, lipase normal, CRP and ESR elevated, urine and blood cultures pending. Chest x-ray with no acute disease and CT of the abdomen identifies fecal impaction in the rectum and cystitis. He is tolerating his IV antibiotic therapy with no adverse events. Previous urine cultures in April identified Proteus sensitive to Rocephin. Exam Data for Last 24 hours Vital signs and Labs for Last 24 Hours: Temp Pulse Resp BP Pulse Ox 98.8 F 83 19 113/50 L 95 06/05/22 10:52 06/05/22 10:52 06/05/22 10:52 06/05/22 10:52 06/05/22 10:52 Laboratory Results - last 24 hr 06/04/22 20:50: Urine Color Yellow, Urine Appearance Clear, Urine pH 5.5, Ur Specific [place] >= 1.030, Urine Protein 2+, Urine Glucose (UA) Negative, Urine Ketones Negative, Urine Blood 3+, Urine Nitrate Negative, Urine Bilirubin 1+ A, Urine Urobilinogen 0.2, Ur Leukocyte Esterase 2+ A, Urine RBC 10-20, Urine WBC 20-50, Ur Squamous Epith Cells Occasional, Urine Bacteria 1+ 06/04/22 20:50: WBC 32.3 H*, RBC 4.56 L, Hgb 13.3 L, Hct 40.6 L, MCV 89.0, MCH 29.2, MCHC 32.8, RDW 14.7, Plt Count 406, MPV 7.4, Neut % (Auto) 91.9 H, Lymph % (Auto) 4.0 L, [place] % (Auto) 3.7, Eos % (Auto) 0.1, Baso % (Auto) 0.2, Neut # (Auto) 29.7 H, Lymph # (Auto) 1.3, [place] # (Auto) 1.2 H, Eos # (Auto) 0.0, Baso # (Auto) 0.1, Total Counted 100, Neutrophils % (Manual) 92 H, Lymphocytes % (Manual) 5 L, Monocytes % (Manual) 3, Platelet Estimate Normal, RBC Morphology Normal, ESR 42 H 06/04/22 20:50: Sodium 142, Potassium 4.2, Chloride 110 H, Carbon Dioxide 26, Anion Gap 10.2, BUN 34 H, Creatinine 1.40 H, Estimated Creat Clear 49, Estimated GFR 51 L, Est GFR ( Amer) 61, Glucose 127 H, Calcium 9.5, Total Bilirubin 0.9, AST 20, ALT 22, Alkaline Phosphatase 105, C-Reactive Protein 211.8 H, Total Protein 7.0, Albumin 4.0, Globulin 3.0, Albumin/Globulin Ratio 1.3, Procalcitonin 0.555 06/04/22 20:50: Lactate 1.1 06/04/22 20:50: SARS-CoV-2 (PCR) Not detected, Influenza A Untype (PCR) Not detected, Influenza Type B (PCR) Not detected 06/04/22 22:05: Amylase 51, Lipase 41 06/05/22 06:53: ESR 84 H 06/05/22 06:53: C-Reactive Protein 250.3 H 06/05/22 06:53: WBC 27.2 H*, RBC 3.74 L, Hgb 11.0 L D, Hct 34.3 L, MCV 91.7, MCH 29.3, MCHC 31.9, RDW 14.7, Plt Count 313, MPV 7.4, Neut % (Auto) 89.4 H, Lymph % (Auto) 5.7 L, Swift % (Auto) 4.0, Eos % (Auto) 0.5, Baso % (Auto) 0.4, Neut # (Auto) 24.3 H, Lymph # (Auto) 1.5, Swift # (Auto) 1.1 H, Eos # (Auto) 0.1, Baso # (Auto) 0.1, Total Counted 100, Neutrophils % (Manual) 87 H, Lymphocytes % (Manual) 10, Monocytes % (Manual) 3, Platelet Estimate Normal, RBC Morphology Normal 06/05/22 06:53: Sodium 143, Potassium 3.8, Chloride 115 H, Carbon Dioxide 23, Anion Gap 8.8, BUN 24 H D, Creatinine 0.90 D, Estimated Creat Clear 61, Estimated GFR 84, Est GFR ( Amer) 102 D, Glucose 82 D, Calcium 8.6, Triglycerides 58, Cholesterol 97 L, LDL Cholesterol Direct < 30.00 L, VLDL Cholesterol 12, HDL Cholesterol 41, Cholesterol/HDL Ratio 2.4 I & O for Last 24 hours: Intake & Output 06/02/22 06/03/22 06/04/22 06/05/22 23:59 23:59 23:59 23:59 Intake Total 674 / 674 Output Total 975 / 975 Balance -301 / -301 Weight 68.039 kg 60.373 kg Constitutional Constitutional: no acute distress, chronically ill appearing and cooperative *Routine HEENT Exam Head: Present normocephalic Eye: Present EOMI and PERRL ENT: Present mucous membranes moist *Routine Neck Exam Neck: Present supple; Absent ly
[2022-06-05 15:29] VITALS: BP 112/66; PULSE 76; RESP 17; TEMP 37.1; O2SAT 98
--- NOTE | 2022-06-05 17:31 | PC.NURSE ---
PT ALERT TO SELF ONLY. FLEET ENEMA ADMIN, PT HAD A LARGE BM. SPOKE WITH [facility] REGARDING PTS DIET, HES ON A MECH SOFT, THIN LIQUID, TOLERATED WELL. PT SWALLOWS PO MEDS WHOLE, NO ISSUES NOTED. PARKS IN PLACE. NO CONCERNS AT THIS TIME.
[2022-06-05 20:00] VITALS: BP 118/54; PULSE 87; RESP 16; TEMP 37.1; O2SAT 94
[2022-06-06] VITALS: BP 143/69; PULSE 87; RESP 16; TEMP 36.9; O2SAT 95
[2022-06-06 04:00] VITALS: BP 125/51; PULSE 65; RESP 17; TEMP 36.9; O2SAT 96; BMI 21.4
--- NOTE | 2022-06-06 05:14 | PC.NURSE ---
Pt rested well this shift. Has had no complaints. Alert to person, pts baseline. Pt incontinent of stool twice this shift. Alberts catheter in place. Urine dark yellow/octaviano in color. NS infusing @ 100 ml/hr per JUN.
[2022-06-06 06:29] LABS: Basophils # 0.1 K/mm3 (0-0.2); Basophils % 0.6 % (0.1-2.0); Eosinophils # 0.3 K/mm3 (0.0-0.4); Eosinophils % 2.4 % (0.1-12.0); Hematocrit 34.1 % (42.0-52.0); Hemoglobin 10.8 g/dL (14.1-18.0); Lymphocytes # 1.5 K/mm3 (0.7-4.5); Lymphocytes % 10.7 % (10-50); Mean Corpuscular HGB Conc 31.7 g/dL (31.8-35.4); Mean Corpuscular Volume 91.7 fl (80-94); Mean Platelet Volume 7.6 fl (7.4-10.4); Monocytes # 0.7 K/mm3 (0.1-1.0); Monocytes % 5.1 % (1.7-9.3); Neutrophils # 11.3 K/mm3 (1.8-7.8); Neutrophils % 81.3 % (37.0-80.0); Platelet Count 311 K/mm3 (142-424); Red Blood Count 3.72 M/mm3 (4.60-6.20); Red Cell Distribution Width 14.7 % (11.5-17.5); White Blood Count 13.9 K/mm3 (4.8-10.8)
[2022-06-06 06:33] LABS: Blood Urea Nitrogen 13 mg/dl (9-20); Calcium 8.3 mg/dl (8.4-10.2); Carbon Dioxide 22 mmol/L (22.0-30.0); Creatinine Clearance Estimated 61 mL/min (50-200); Estimated Glomerular Filt Rate 112 ml/min (>60); GFR (African American) 136 ML/MIN (>60); Glucose 84 mg/dl (74-100); Potassium 3.1 mmoL/L (3.5-5.1); Sodium 140 mmol/L (136-145)
[2022-06-06 06:54] LABS: Anion Gap 7.1 mEq/L (5-15); Chloride 114 mmol/L (98-107)
[2022-06-06 08:00] VITALS: BP 143/82; PULSE 77; RESP 18; TEMP 36.4; O2SAT 99
--- NOTE | 2022-06-06 10:20 | SW/DCPLANNER ---
This patient currently resides at [facility] level of care. I did follow up with Debra Sauer at [facility]: patient is medically stable for discharge today and will NOT need an additional COVID swab per Debra.
[2022-06-06 12:00] VITALS: BP 135/83; PULSE 75; RESP 20; TEMP 36.8; O2SAT 96
--- NOTE | 2022-06-06 13:19 | EXP.DC.SUM ---
General Admission date:: 06/04/22 Discharge date: 06/06/22 HPI HPI HPI: This is a 67 year old male with a PMHx of Demenita, Chronic Indwelling Garcia Catheter, and prior CVA who presents to the Emergency department from his SNF with staff concerns for something not being right . They reports he was having rigors and increase BP. ROS difficulty to obtain due to chornic AMS. Emergency department work up significant for acute cystitis in the setting of Chronic Indewelling Garcia Catheter and DINO. Patient noted to have a creatinine of 2.0 with baseline around 1. Purulent drainage noted in garcia catheter. Leukocytosis noted with WBC of 32. On prior admission, patient was admitted with similar presentation. He was noted to have distended bladder and had improvements in labs after replacement of Garcia Catheter. Due to the above mentioned complaints, he will be admitted for further evaluation and management. Hospital Course Hospital Course Hospital Course: The patient was admitted to the medical unit with blood and urine cultures acquired. He was started on broad-spectrum IV antibiotic therapy and his labs and inflammatory markers were trended. His blood cultures identified no growth to date and his urine cultures identified gram-negative rods less than 20,000 colony count. He tolerated his IV antibiotic therapy and his leukocytoses improved throughout his stay. He received fluid resuscitation and then transition to p.o. He was maintained on a mechanical soft diet with thin liquids. A bowel regiment was provided with constipation identified on CT of the abdomen. He eliminated effectively. With his identified improvement his care was transitioned back to his long-term care facility. He will be discharged on a few more days of oral cephalosporin therapy for his UTI. I spent 35 minutes in [id number] time with the patient and nursing staff concerning the discharge process. We discussed the admitting diagnoses and hospital course. We discussed identified improvement and the patient's desire to to transition his care back to his long-term care facility. We reviewed inpatient studies and imaging. His care will be transition back to [facility]. Exam Data for Last 24 hours Vital signs and Labs for Last 24 Hours: Temp Pulse Resp BP Pulse Ox 98.2 F 75 20 135/83 96 06/06/22 12:00 06/06/22 12:00 06/06/22 12:00 06/06/22 12:00 06/06/22 12:00 Laboratory Results - last 24 hr 06/04/22 20:50: Urine Color Yellow, Urine Appearance Clear, Urine pH 5.5, Ur Specific [place] >= 1.030, Urine Protein 2+, Urine Glucose (UA) Negative, Urine Ketones Negative, Urine Blood 3+, Urine Nitrate Negative, Urine Bilirubin 1+ A, Urine Urobilinogen 0.2, Ur Leukocyte Esterase 2+ A, Urine RBC 10-20, Urine WBC 20-50, Ur Squamous Epith Cells Occasional, Urine Bacteria 1+ 06/06/22 05:50: WBC 13.9 H D, RBC 3.72 L, Hgb 10.8 L, Hct 34.1 L, MCV 91.7, MCH 29.0, MCHC 31.7 L, RDW 14.7, Plt Count 311, MPV 7.6, Neut % (Auto) 81.3 H, Lymph % (Auto) 10.7, [place] % (Auto) 5.1, Eos % (Auto) 2.4, Baso % (Auto) 0.6, Neut # (Auto) 11.3 H, Lymph # (Auto) 1.5, [place] # (Auto) 0.7, Eos # (Auto) 0.3, Baso # (Auto) 0.1 06/06/22 05:50: Sodium 140, Potassium 3.1 L, Chloride 114 H, Carbon Dioxide 22, Anion Gap 7.1, BUN 13 D, Creatinine 0.70 D, Estimated Creat Clear 61, Estimated GFR 112, Est GFR ( Amer) 136 D, Glucose 84, Calcium 8.3 L I & O for Last 24 hours: Intake & Output 06/03/22 06/04/22 06/05/22 06/06/22 23:59 23:59 23:59 23:59 Intake Total 2188 / 2188 1595 / 1595 Output Total 1775 / 1775 800 / 800 Balance 413 / 413 795 / 795 Weight 68.039 kg 60.373 kg 60.6 kg Microbiology Reports for the Last 24 Hours: Microbiology 06/04/22 20:50 Urine,Clean Catch Urine Culture - Preliminary Gram Negative Rods Constitutional Constitutional: no acute distress, chronically ill appearing and cooperative *Routine HEENT Exam Head: Present nor
[2022-06-06 21:08] LABS: Peripheral Smear Review Scanned Result
--- NOTE | 2022-06-07 15:10 | CARE MANAGER ---
Called and spoke with nursing staff at [facility], who stated that patient is doing well and that they received everything needed at discharge.
== END 2022-06-06 14:15 | DRG 699 ==
LOC: ER 21:34 → 2ND 23:21
PROVIDERS: Nurse Practitioner Acute Care; Admitting Provider Family Medicine; Emergency Provider Emergency Medicine; PCP Family Medicine; Visit Provider Family Medicine
DX: T83.511A Infection and inflammatory reaction due to indwelling urethral catheter, initial encounter (principal); N17.9 Acute kidney failure, unspecified; N39.0 Urinary tract infection, site not specified; F03.90 Unspecified dementia, unspecified severity, without behavioral disturbance, psychotic disturbance, mood disturbance, and anxiety; I10 Essential (primary) hypertension; E78.5 Hyperlipidemia, unspecified; Z86.73 Personal history of transient ischemic attack (TIA), and cerebral infarction without residual deficits; Z86.16 Personal history of COVID-19; F32.9 Major depressive disorder, single episode, unspecified; Z87.891 Personal history of nicotine dependence; Y84.6 Urinary catheterization as the cause of abnormal reaction of the patient, or of later complication, without mention of misadventure at the time of the procedure; K59.00 Constipation, unspecified
CPT/HCPCS: 36415; 71045; 74177; 80048; 80053; 80061; 81001; 82150; 83605; 83690; 84145; 85007; 85025; 85651; 86140; 87040; 87086; 87088; 87186; 93005; 99285; C9803; J0696; Q9967; U0003; U0005

== ENCOUNTER 2022-12-24 20:28 | Emergency (ER) | payer MEDICARE, MEDICAID, SELFPAY ==
[2022-12-24 20:26] VITALS: BP 115/65; PULSE 106; RESP 16; O2SAT 99; BMI 26.6
--- NOTE | 2022-12-24 20:41 | CT_ITS ---
PROCEDURE INFORMATION: Exam: CT Abdomen And Pelvis With Contrast Exam date and time: 12/24/2022 10:03 PM Age: 67 years old Clinical indication: Abdominal pain; Additional info: False lumen at base of penis 6:00 position TECHNIQUE: Imaging protocol: Computed tomography of the abdomen and pelvis with contrast. Radiation optimization: All CT scans at this facility use at least one of these dose optimization techniques: automated exposure control; mA and/or kV adjustment per patient size (includes targeted exams where dose is matched to clinical indication); or iterative reconstruction. Contrast material: ISOVUE; Contrast volume: 75 ml; Contrast route: IV; REPORTING DATA: Count of CT and Cardiac NM exams in prior 12 months: This patient has received 5 known CTs and 0 known cardiac nuclear medicine studies in the 12 months prior to the current study. COMPARISON: CT ABDOMEN PELVIS W CON 06/04/2022 9:49 PM FINDINGS: Lungs: Nonspecific subpleural reticulation of the lung bases. Calcified granuloma at the right lung base. Diaphragm: There is a moderate hiatal hernia. Liver: Normal. No mass. Gallbladder and bile ducts: Normal. No calcified stones. No ductal dilation. Pancreas: Normal. No ductal dilation. Spleen: There are multiple calcifications in the spleen most likely reflects small granulomas. Adrenal glands: Normal. No mass. Kidneys and ureters: Normal. No hydronephrosis. Stomach and bowel: There is moderate stool in the rectal vault. Appendix: No evidence of appendicitis. Intraperitoneal space: Unremarkable. No free air. No significant fluid collection. Vasculature: There is atherosclerotic disease of the visualized aorta and its major branch vessels. 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 Lymph nodes: Unremarkable. No enlarged lymph nodes. Urinary bladder: There is a Alberts catheter place within the urinary bladder. There is significant wall thickening of the urinary bladder with pericystic inflammatory change and mucosal hyperenhancement. The Alberts catheter appears to enter from outside the normal urethra. Reproductive: Unremarkable as visualized. Bones/joints: Status post intramedullary nori and nail fixation of a left femoral neck fracture. There is diffuse degenerative disease of the visualized osseous structures. There is a dextrocurvature of the lumbar spine which may be in part positional. There are age-indeterminate compression deformities L1, L3, and L5. Soft tissues: There is bilateral gynecomastia. IMPRESSION: 1. Severe advanced cystitis. 2. Abnormal entrance location of the Alberts catheter, consistent with given history of a penile false lumen
[2022-12-24 21:07] LABS: Basophils # 0.1 K/mm3 (0-0.2); Basophils % 0.4 % (0.1-2.0); Eosinophils # 0.2 K/mm3 (0.0-0.4); Eosinophils % 1.3 % (0.1-12.0); Hematocrit 45.9 % (42.0-52.0); Hemoglobin 14.4 g/dL (14.1-18.0); Lymphocytes # 1.5 K/mm3 (0.7-4.5); Lymphocytes % 9.7 % (10-50); Mean Corpuscular HGB Conc 31.4 g/dL (31.8-35.4); Mean Corpuscular Hemoglobin 27.4 pg (27.0-31.2); Mean Corpuscular Volume 87.1 fl (80-94); Mean Platelet Volume 7.5 fl (7.4-10.4); Monocytes # 1.2 K/mm3 (0.1-1.0); Monocytes % 7.8 % (1.7-9.3); Neutrophils # 12.7 K/mm3 (1.8-7.8); Neutrophils % 80.7 % (37.0-80.0); Platelet Count 361 K/mm3 (142-424); Red Blood Count 5.27 M/mm3 (4.60-6.20); Red Cell Distribution Width 13.4 % (11.5-17.5); White Blood Count 15.7 K/mm3 (4.8-10.8)
[2022-12-24 21:08] LABS: Chloride 106 mmol/L (98-107); Sodium 142 mmol/L (136-145)
[2022-12-24 21:09] LABS: MANUAL DIFFERENTIAL MANUAL DIFFERENTIAL (MANUAL DIFF)
[2022-12-24 21:11] LABS: Alanine Aminotransferase 22 U/L (12-78); Albumin Level 3.8 g/dl (3.5-5.0); Albumin/Globulin Ratio 1.1 (1.1-1.8); Alkaline Phosphatase 95 U/L (38-126); Aspartate Amino Transferase 25 U/L (17-59); Bilirubin,Total 0.4 mg/dl (0.2-1.3); Blood Urea Nitrogen 25 mg/dl (9-20); Calcium 9.2 mg/dl (8.4-10.2); Carbon Dioxide 28 mmol/L (22.0-30.0); Creatinine Clearance Estimated 53 mL/min (50-200); Estimated Glomerular Filt Rate 51 ml/min (>60); GFR (African American) 61 ML/MIN (>60); Globulin 3.4 g/dL (1.3-3.2); Glucose 120 mg/dl (74-100); Total Protein,Serum 7.2 g/dl (6.3-8.2)
[2022-12-24 21:30] LABS: Lymphocytes % 13 % (10-50); Monocytes % 1 % (2-9); Neutrophils % 82 % (42-76); Platelet Estimate Normal; RBC Morphology Normal; Total Cells Counted 100
[2022-12-24 21:45] LABS: Erythrocyte Sedimentation Rate 51 mm/hr (0-20)
[2022-12-24 22:38] LABS: Microscopic, Urine URINE MICROSCOPIC (MICROSCOPIC)
[2022-12-24 22:44] LABS: Appearance,Urine TURBID (Clear); Bilirubin,Urine Negative (Negative); Blood, Urine 1+ (Negative); Color,Urine BROWN (Yellow); Glucose,Urine (UA) Negative (Negative); Ketones,Urine Negative (Negative); Leukocyte Esterase,Urine 2+ (Negative); Nitrate,Urine Negative (Negative); PH,Urine 8.5 (5.0-8.5); Protein,Urine 2+ (Negative); Specific Gravity, Urine 1.015 (1.005-1.030); Urobilinogen,Urine 0.2 EU/dl (0.2)
--- NOTE | 2022-12-24 22:44 | PC.NURSE ---
[facility] called for an update, told them we are still waiting on some test results before making a final dispo decison
[2022-12-24 23:13] LABS: Amorphous Sediment,Urine 2+ /lpf; Bacteria,Urine 2+ /lpf; Mucus,Urine 4+ /lpf; Triple Phosphate Crystal,Urine 2+ /lpf
--- NOTE | 2022-12-24 23:42 | PC.NURSE ---
call placed to [facility] for urology consult [phone];
--- NOTE | 2022-12-25 00:28 | PC.NURSE ---
Report called to Sherice magdaleno [facility].
--- NOTE | 2022-12-25 00:31 | PC.NURSE ---
EMS notified of need for transport back to [facility]
[2022-12-25 01:49] VITALS: BP 151/75; PULSE 75; RESP 15; TEMP 36.7; O2SAT 98
--- NOTE | 2022-12-25 19:34 | HMH.EDGENADL ---
Discharge Plan Disposition Patient Disposition: Home, Self-Care Condition: Fair Prescriptions Prescriptions: New cefdinir 300 mg capsule 300 mg PO Q12H 10 Days Qty: 20 0RF Discontinued cefdinir 300 mg capsule 300 mg PO BID Qty: 10 0RF No Action alprazolam [Xanax] 0.5 mg tablet 0.5 mg PO HS Qty: 30 5RF acetaminophen 500 mg Tablet 1,000 mg PO Q6HP PRN (Reason: Mild Pain (Scale Score 1-4)) simvastatin 20 mg Tablet 20 mg PO DAILY lansoprazole 15 mg Capsule,Delayed Release(Dr/Ec) 15 mg PO DAILY finasteride 5 mg Tablet 5 mg PO DAILY aspirin 81 mg Tablet,Chewable 81 mg PO DAILY miconazole nitrate 2 % Cream 1 applic TOPICAL BID bupropion HCl 75 mg Tablet 75 mg PO BID ergocalciferol (vitamin D2) [Drisdol] 1,250 mcg (50,000 unit) Capsule 1,250 mcg PO MO loperamide [Imodium A-D] 2 mg Tablet 2 mg PO Q4H PRN (Reason: loose stools) Rx Instructions: administer after each loose stool until symptoms controlled; do not exceed 8 mg per 24 hrs bisacodyl [Dulcolax (bisacodyl)] 5 mg Tablet,Delayed Release (Dr/Ec) 10 mg PO DAILYP PRN (Reason: Constipation) mirtazapine [Remeron] 15 mg Tablet 15 mg PO HS senna 8.6 mg Capsule 17.2 mg PO DAILYP PRN (Reason: constipaition) glucagon 1 mg/0.2 mL Auto-Injector 1 mg SQ DIRECTED ondansetron 4 mg Tablet,Disintegrating 4 mg PO Q6HP PRN (Reason: Nausea) emollient Cream 1 applic TOPICAL QSHIFT zinc oxide Ointment 1 applic TOPICAL QSHIFT PRN (Reason: skin protectant) Referrals Follow up/Referrals: Provider,Referral, MD [Primary Care Provider] - See instructions Activity Restrictions/Add. Instructions Additional Instructions/Restrictions: I have discussed the issue with your Alberts catheter with the urologist at [facility]. They have stated that they will arrange for follow-up with him to address this issue but it does not need emergent treatment. Alternatively you can follow-up with his previous urologist. If you elect to follow-up with the doctors at [facility] and they do not call you, please give them a call. It also appears that he has a urinary tract infection. His kidney function is mildly elevated at 1.4 creatinine but his previous lab was over a year ago, I have prescribed antibiotics and recommend that he drink plenty of fluids and return if he develops any new or worsening symptoms and follow-up with your primary care doctor as well. Clinical Impressions Clinical Impression: Complication of Alberts catheter Instructions Patient Instructions: DI for Urinary Tract Infection (UTI), DI for Urinary Tract Infection in Children Discharge ED Provider: Devon Prince Adult HPI General Chief complaint: Urogenital-Male Stated complaint: wound Time Seen by Provider: 12/24/22 20:32 Mode of Arrival: EMS Source of Information: Patient and EMS Limitations: No Limitations Description of Symptoms (Recalled from ER Triage Doc. by RN): 67 yo male presents with CC of hole in penis . According to EMS and [facility] report, staff at the [facility] changed his FC out today and 'found' a hole approx 2.5 inches proximal to the meatus. Patient has an apparent hypospadias noted, but the hole is center, and the catheter is visible. No malodorous drainage present, mild erythema. Patient reports it has been there awhile and I have told them it hurts down there but they don't listen'. PMH: urinary retention,etc. NKA. History of Present Illness HPI narrative: Patient presents for evaluation of urogenital lesion, first noticed today, in the setting of chronic indwelling catheter, describes mild nonradiating pain with no associated reported fevers or chills, no known precipitating trauma, patient states that this condition has been ongoing for several weeks, denies pain elsewhere, and has been at baseline per facility for which she was transferred. Related Data Home
[2022-12-26 20:25] LABS: C-Reactive Protein 135.2 mg/L (0-4)
--- NOTE | 2022-12-27 09:36 | PC.NURSE ---
reviewed urine culture results with dr. gibson, pt d/c from ER on Cefdinir, Dr. Gibson reports based on culture sensitivity this is adequate coverage for pt.
--- NOTE | 2022-12-31 09:33 | PC.NURSE ---
urine culture resulted proteus mirabilis on urine cath, pt was given cefdinir on DC. no action needed per MD Vigil
== END 2022-12-25 01:51 | disposition home or self-care (01) ==
PROVIDERS: Emergency Provider Emergency Medicine
DX: T83.84XA Pain due to genitourinary prosthetic devices, implants and grafts, initial encounter (principal); F03.90 Unspecified dementia, unspecified severity, without behavioral disturbance, psychotic disturbance, mood disturbance, and anxiety; E78.5 Hyperlipidemia, unspecified; I10 Essential (primary) hypertension; F32.9 Major depressive disorder, single episode, unspecified; Z86.73 Personal history of transient ischemic attack (TIA), and cerebral infarction without residual deficits
CPT/HCPCS: 74177; 80053; 81001; 85007; 85025; 85651; 86140; 87086; 87186; 99285; Q9967